=== PATIENT | female | born 1940 | race Caucasian/White ===

== ENCOUNTER 2017-03-14 11:47 | Day surgery (SDC) | payer MEDICARE, OTHER ==
[~2017-03-14] VITALS: Ht 165.1 cm; Wt 52.2 kg
[~2017-03-14 11:47] MED LIST: ASPIRIN EC81 MG PO; BACITRACIN1 PKT TOP; FOLIC ACID1 MG PO; KEFLEX500 MG PO; MOBIC15 MG PO; PRILOSEC20 MG PO; REMERON15 M1 PO; TOPAMAX50 MG PO; ULTRACET TABLE1 EACH PO; ZESTRIL30 MG PO; ZOLPIDEM TARTRA10 MG PO
[2017-03-14] MEDS ORDERED: ALENDRONATE SOD70 MG PO (12:47)
[2017-03-14] MEDS ORDERED: SUMATRIPTAN SU100 MG PO (12:48)
[2017-03-14] MEDS ORDERED: TOPIRAMATE50 MG PO (12:48)
[2017-03-14] MEDS ORDERED: CRAN-MAX500 MG PO (12:49)
[2017-03-14] MEDS ORDERED: MULTI VITAMIN1 EACH PO (12:49)
[2017-03-14] MEDS ORDERED: FLAX SEED OIL1000 MG PO (12:50)
[2017-03-14] MEDS ORDERED: ORENCIA50 MG/0.4 IV (12:51)
[2017-03-14] MEDS ORDERED: HYDROCODON-ACE1 EAC8 PO (12:52)
--- NOTE | 2017-03-14 14:55 | NUR ---
RIGHT FA IV CDI ON ARRIVAL TO PACU.
--- NOTE | 2017-03-14 14:57 | NUR ---
03/14/17 8367 Armond Armijo PT ENCOURAGED TO TRY AND PASS THE AIR FROM HER COLON. THE PT STATES SHE UNDERSTANDS AND WILL TRY AND DO SO.
[2017-03-15] MEDS ORDERED: DILTIAZEM HCL10 GM TOP (08:36)
[2017-03-15] MEDS ORDERED: MAPAP325 MG PO (08:36)
[2017-03-15] MEDS ORDERED: IBUPROFEN600 MG PO (08:36)
--- NOTE | 2017-04-08 07:48 | OR ---
[facility] [address], [place] [address] Signed DATE OF PROCEDURE: 03/14/17 PREOPERATIVE DIAGNOSES Episodic rectal bleeding and prolapsing hemorrhoidal tissue. POSTOPERATIVE DIAGNOSES Profound diverticulosis of sigmoid and left colon. PROCEDURE PERFORMED Colonoscopy beyond the splenic flexure (incomplete). Prolapsing hemorrhoidal complex. SURGEON: Cayla Schumacher MD. ANESTHESIA: Intravenous sedation, Fentanyl 100 mcg, Versed 4 mg. INDICATION This 76-year-old white woman is a patient Dr. Brown and Dr. Felicita Cummings. She was referred with "rectal prolapse" and found to have hemorrhoidal prolapse in the lateral aspect. This was on the right side dominantly. There was no true rectal prolapse noted. She has had episodic rectal bleeding, which may or may not be related to her hemorrhoidal problem. I have recommended colonoscopy. The risks of bleeding, infection, and perforation were reviewed with her in detail. She understands wished to proceed. FINDINGS The prep was good. Profound diverticular changes were noted at the sigmoid and left colon. The scope was passed up to approximately 80 cm, but given angulation deformity, friability of her colon profound diverticulosis, her advanced age, and a thin body habitus, further pursuing a colonoscopy beyond this point was deemed highly hazardous for perforation and no further attempts were made to go beyond that. There were no signs of cancer or polyps or colitis, only diverticulosis. Internal hemorrhoidal complex that was noted was seen as well. DESCRIPTION OF PROCEDURE The patient was brought to the endoscopy suite and placed in lateral decubitus position. Given intravenous sedation to the point of slurred speech and nystagmus with full cardiopulmonary monitoring. Digital rectal examination was normal overall. An Olympus video colonoscope was passed in the rectum and manipulated down the sigmoid into the left colon where dense numerous large and small diverticula were noted. Various angulation deformities were noted. With various manipulation, the scope was carefully manipulated through them to approximately 50 to 60 cm and beyond that to what appeared Electronically Signed By: CAYLA SCHUMACHER MD 04/08/17 0748 PATIENT NAME: FELICITA MAXWELL OPERATIVE REPORT DATE OF : 40 PHYSICIAN: CAYLA SCHUMACHER MD REPORT #: [id number] REPORT IS CONFIDENTIAL AND NOT TO BE RELEASED WITHOUT AUTHORIZATION [facility] [address] [place], [place] [address] Signed to be the splenic flexure, but there were still diverticular changes there. Passage beyond that caused some amount of diaphoresis of the patient and notably her thin body habitus with the findings of the colon, the friability of the colon, numerous diverticula, and sigmoidal fixation made passage beyond this area unreasonable due to hazard of perforation and on that basis, I abandoned the procedure from there. The scope was then carefully withdrawn and examination showed no evidence of polyps or colitis, only diverticular changes as noted. Retroflexed view in the rectum confirmed the hemorrhoidal issue in question. CONCLUDING DIAGNOSIS Incomplete colonoscopy, but profound diverticulosis noted. No evidence of malignancy. PLAN I believe it is safe to proceed with the hemorrhoidal excision tomorrow as planned. She will maintain a liquid diet until that time. MD PABLO Honeycutt/Vesna /[id number] cc: MD Felicita Lambert MD Electronically Signed By: CAYLA SCHUMACHER MD 04/08/17 0748 PATIENT NAME: FELICITA MAXWELL FARRAH OPERATIVE REPORT DATE OF : 40 PHYSICIAN: CAYLA SCHUMACHER MD REPORT #: [id number] REPORT IS CONFIDENTIAL AND NOT TO BE RELEASED WITHOUT AUTHORIZATION
== END 2017-03-14 15:35 | disposition home or self-care (01) ==
LOC: OPS 11:47 → DS 15:00 → OPS 15:35
PROVIDERS: Surgery
PROC: 0DJD8ZZ Inspection of Lower Intestinal Tract, Via Natural or Artificial Opening Endoscopic (ICD-10-PCS; principal; 2017-03-14 15:00)
DX: K57.30 Diverticulosis of large intestine without perforation or abscess without bleeding (principal); K64.8 Other hemorrhoids; M06.9 Rheumatoid arthritis, unspecified; I10 Essential (primary) hypertension; Z88.5 Allergy status to narcotic agent; Z88.8 Allergy status to other drugs, medicaments and biological substances; Z90.710 Acquired absence of both cervix and uterus; Z96.651 Presence of right artificial knee joint; Z98.890 Other specified postprocedural states
CPT/HCPCS: 36415; 80053; 85025; 93005; 93010; 99152; 99153; J0694

== ENCOUNTER 2017-03-15 05:30 | Day surgery (SDC) | payer MEDICARE, OTHER ==
[~2017-03-15] VITALS: Ht 165.1 cm; Wt 52.2 kg
[~2017-03-15 05:30] MED LIST changes: +ALENDRONATE SOD70 MG PO; +CRAN-MAX500 MG PO; +FLAX SEED OIL1000 MG PO; +HYDROCODON-ACE1 EAC8 PO; +MULTI VITAMIN1 EACH PO; +ORENCIA50 MG/0.4 IV; +SUMATRIPTAN SU100 MG PO; +TOPIRAMATE50 MG PO
--- NOTE | 2017-03-15 08:23 | NUR ---
03/15/17 0823 Adam Aguilera ANGLE SHEARER MEDICATING PT WITH PHENYLEPHRINE AT 0822.
[2017-03-15] MEDS ORDERED: MAPAP325 MG PO (08:36)
[2017-03-15] MEDS ORDERED: DILTIAZEM HCL10 GM TOP (08:36)
[2017-03-15] MEDS ORDERED: IBUPROFEN600 MG PO (08:36)
--- NOTE | 2017-03-15 09:24 | NUR ---
ICED WATER GIVEN. SANDWICH ORDERED FROM DIETARY. CALL LIGHT W/IN REACH.
--- NOTE | 2017-03-15 10:03 | NUR ---
LE 0945: BREAKFAST ARRIVES FROM DIETARY. PT SITTING UP IN BED AND EATING. JUICE AND COFFEE GIVEN. 1000: PT EATS BREAKFAST AND TOLERATES THAT WELL. PT DENIES ADD'L NEEDS @ THIS TIME.
--- NOTE | 2017-03-15 10:18 | NUR ---
PT UP TO BR W/2 RN ASSIST. PT AMBULATES WELL AND DENIES ABILITY TO VOID. SMALL BLOOD CLOT NOTED IN HAT. PT AMBULATES BACK TO BED AND SCDS ARE IN PLACE. OXYGEN REMOVED PRIOR TO BATHROOM TRIP.
--- NOTE | 2017-03-15 10:32 | NUR ---
PT BLADDER SCANNED AND TO FOUND TO HAVE 663 ML IN BLADDER.
--- NOTE | 2017-03-15 10:56 | NUR ---
LE 1045: CALL TO MD AFTER UNSUCCESSFUL VOID AND NEW ORDER RECEIVED. IN AND OUT CATHETER DONE USING STERILE TECHNIQUE AND 900ML CLEAR YELLOW URINE OBTAINED. PT TOLERATES CATH WELL. MORE ICED WATER GIVEN.
--- NOTE | 2017-03-15 11:40 | NUR ---
PT CONTINUES TO DENY URGE TO VOID. PT BLADDER SCANNED AND IS FOUND TO HAVE 337 ML IN BLADDER. PT UPDATED ON PLAN OF CARE AND SHE VERBALIZES UNDERSTANDING.
--- NOTE | 2017-03-15 12:15 | NUR ---
PT UP TO BR W/RN STANDBY. PT VOIDS 400 ML CLEAR YELLOW URINE AND CHANGES SUDARSHAN PAD W/SMALL AMOUNT OF SEROUS DRAINAGE. PT AMBULATES BACK TO BED AND REQ DC HOME. PT CALLS HER RIDE.
--- NOTE | 2017-04-08 07:48 | OR ---
[facility] [address] [place], [place] [address] Signed DATE OF PROCEDURE: 03/15/17 PREOPERATIVE DIAGNOSIS Right prolapsing hemorrhoidal complex including rectal mucosa. 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 PROCEDURE PERFORMED Excision of right lateral prolapsing anorectal mucosa. SURGEON: Cayla Schumacher MD. ANESTHESIA Saddle block with sedation (Cayla Jones CRNA) and local 10 mL of 0.25% Marcaine with Epinephrine. INDICATION This 76-year-old white woman is a patient of Dr. Cummings and Dr. Brown and has had episodic perianal swelling as well as prolapse of hemorrhoidal tissue. She underwent a limited colonoscopy yesterday showing profound diverticular changes. She has had rectal bleeding associated with her prolapsing hemorrhoidal tissue. She does not have rectal prolapse proper but prolapsing of the right anterolateral hemorrhoidal complex and some rectal mucosa. This is more than simple prolapsing hemorrhoids however. She is admitted at this time to undergo excision of this tissue understanding the risks of bleeding, infection, recurrence and so on. FINDINGS Indeed in the right anterolateral aspect redundant prolapsing rectal mucosa and hemorrhoidal tissue was noted. Wide excision was undertaken preserving the sphincter muscle complex. Closure of the mucosa was undertaken with opening externally to allow for drainage as necessary. DESCRIPTION OF PROCEDURE The patient was brought to the operating room, given a saddle block anesthetic and placed in a prone nilo-knife position. She had already undergone a bowel prep from her colonoscopy previously and intravenous antibiotic Cefoxitin had been given. In the prone nilo-knife position the buttocks were taped apart. Perianal Betadine preparation was undertaken. A photograph was taken at the outset and an anal retractor was placed. The prolapsing right anterolateral rectal and hemorrhoidal tissue was identified and grasped with a Mcnally clamp. 8 mL of 0.25% Marcaine was injected in a subepidermal and submucosal configuration. Using electrocautery, wide excision of the tissue was Electronically Signed By: CAYLA SCHUMACHER MD 04/08/17 0748 PATIENT NAME: HANSKASSI Moreno FARRAH OPERATIVE REPORT DATE OF : 40 PHYSICIAN: CAYLA SCHUMACHER MD REPORT #: [id number] REPORT IS CONFIDENTIAL AND NOT TO BE RELEASED WITHOUT AUTHORIZATION [facility] [address] [place] [id number] Signed undertaken. Dissection was carried close to the prolapsing tissue so as to avoid interruption of the anorectal musculature. At the root of the prolapsing tissue, hemostat was placed and a 2-0 chromic on a UR needle was used to secure the vascular pedicle. The specimen was passed for pathology. The rectal mucosa and anoderm was reapproximated with running 2-0 chromic leaving the external portion open to allow for drainage as necessary. Good hemostasis was noted. Additional Marcaine anesthetic was infiltrated and Bacitracin applied and a peripad applied. She was returned to the supine position and ultimately taken to recovery room in good condition. BLOOD LOSS: Minimal. MD PABLO Honeycutt/Vesna /[id number] cc: MD Obinna Davis MD Electronically Signed By: CAYLA SCHUMACHER MD 04/08/17 0748 PATIENT NAME: HANS,KASSI [facility] OPERATIVE REPORT DATE OF : 40 PHYSICIAN: CAYLA SCHUMACHER MD REPORT #: [id number] REPORT IS CONFIDENTIAL AND NOT TO BE RELEASED WITHOUT AUTHORIZATION
== END 2017-03-15 12:28 | disposition home or self-care (01) ==
LOC: DS 05:30
PROVIDERS: Surgery
PROC: 06BY0ZC Excision of Hemorrhoidal Plexus, Open Approach (ICD-10-PCS; principal; 2017-03-15 06:45)
DX: K64.8 Other hemorrhoids (principal); M06.9 Rheumatoid arthritis, unspecified; I10 Essential (primary) hypertension; Z88.5 Allergy status to narcotic agent; Z88.8 Allergy status to other drugs, medicaments and biological substances; Z90.710 Acquired absence of both cervix and uterus; Z96.651 Presence of right artificial knee joint; Z98.890 Other specified postprocedural states
CPT/HCPCS: 00902; 88304; J0694; J1100; J1885; J2250; J2405; J2704; J2765; J3010; J7120

== ENCOUNTER 2017-05-17 15:49 | Emergency (ER) | payer OTHER, MEDICARE ==
[~2017-05-17] VITALS: Ht 165.1 cm; Wt 52.2 kg
[~2017-05-17 15:49] MED LIST changes: +DILTIAZEM HCL10 GM TOP; +IBUPROFEN600 MG PO; +MAPAP325 MG PO
[2017-05-17] MEDS ORDERED: NORCO 10-325 T1 EACH PO (16:41)
== END 2017-05-17 18:25 | disposition home or self-care (01) ==
LOC: ED 15:49
DX: S42.202A Unspecified fracture of upper end of left humerus, initial encounter for closed fracture (principal); S00.81XA Abrasion of other part of head, initial encounter; I10 Essential (primary) hypertension; Z88.1 Allergy status to other antibiotic agents; Z88.5 Allergy status to narcotic agent; Z88.8 Allergy status to other drugs, medicaments and biological substances; Z79.82 Long term (current) use of aspirin; Z79.899 Other long term (current) drug therapy; Z96.651 Presence of right artificial knee joint; W18.30XA Fall on same level, unspecified, initial encounter
CPT/HCPCS: 73030; 96374; 96375; 99283; J1170; J1885; J2405

== ENCOUNTER 2019-07-24 13:22 | Emergency (ER) | payer MEDICARE, OTHER ==
[~2019-07-24] VITALS: Ht 165.1 cm; Wt 52.2 kg
[~2019-07-24 13:22] MED LIST changes: +NORCO 10-325 T1 EACH PO
[2019-07-24] MEDS ORDERED: PROMETHAZINE-C473 ML (13:35)
[2019-07-24] MEDS ORDERED: PRILOSEC OTC20 MG PO (15:09)
--- NOTE | 2019-07-24 20:11 | EKG ---
[facility] [address] [facility] [place], [place] [address] Signed Sinus bradycardia Possible Left atrial enlargement Right bundle branch block Abnormal ECG When compared with ECG of 14-MAR-2017 12:14, No significant change was found Confirmed by ZEKE CROSS DO ([id number]) on 07/24/2019 8:11:00 PM Electronically Signed By: ZEKE CROSS DO 07/24/192010 PATIENT NAME: KASIS MAXWELL FARRAH Electrocardiogram DATE OF : 40 PHYSICIAN: ZEKE CROSS DO REPORT #: [id number] REPORT IS CONFIDENTIAL AND NOT TO BE RELEASED WITHOUT AUTHORIZATION
== END 2019-07-24 15:24 | disposition home or self-care (01) ==
LOC: ED 13:22
DX: K21.9 Gastro-esophageal reflux disease without esophagitis (principal); I10 Essential (primary) hypertension; Z87.891 Personal history of nicotine dependence; Z88.5 Allergy status to narcotic agent; Z88.1 Allergy status to other antibiotic agents; Z79.899 Other long term (current) drug therapy; Z79.82 Long term (current) use of aspirin
CPT/HCPCS: 80053; 83735; 84484; 85025; 93005; 93010; 99285-25

== ENCOUNTER 2020-02-05 17:02 | Emergency (ER) | payer MEDICARE, OTHER ==
[~2020-02-05] VITALS: Ht 165.1 cm; Wt 52.2 kg
--- OUTSIDE RECORDS SUMMARY | ~2020-02-05 | XMS | Encounter Summary ---
Demographics + + + | Address | [address] | | | [place] [address] | + + + | Home Phone | | + + + | Preferred Language | Unknown | + + + | Marital Status | | + + + | Rastafarian Affiliation | 1028 | + + + | Race | White | + + + | Ethnic Group | Not or | + + + Author + + + | Author | [facility] | | | and [place] | + + + | Organization | [facility] | | | and [place] | + + + | Address | Unknown | + + + | Phone | Unavailable | + + + Support + + + + + | Name | Relationship | Address | Phone | + + + + + | Matt Hampton | ECON | [address] | | | | | [place] | | | | | [address] | | + + + + + Care Team Providers + +------+ + | Care Palliative Care Coordinator Name | Role | Phone | + +------+ + PCP | Unavailable | + +------+ + Encounter Details +--------+ + + + + | Date | Type | Department | Care Team | Description | +--------+ + + + + | 05/11/ | [facility] | [facility] | Conversion | | | 2010 | Encounter | [facility] | Transaction, | | | | | [facility] | Provider Unknown | | | | | [address] | | | | | | [place] | (Fax) | | | | | [address] | | | | | | [phone] | | | +--------+ + + + + Social History + +-------+ +--------+------+ | Tobacco Use | Types | Packs/Day | Years | Date | | | | | Used | | + +-------+ +--------+------+ | Never Assessed | | | | | + +-------+ +--------+------+ + + + | Sex Assigned at | Date Recorded | | | | + + + | Not on file | | + + + documented as of this encounter Medications at Time of Discharge + + + +---------+ + + | Medication | Sig | Dispensed | Refills | Start | End Date | | | | | | Date | | + + + +---------+ + + | gabapentin | Take 400 mg by mouth | | 0 | 07/30/19 | | | (NEURONTIN) 400 mg | 3 times daily. | | | 11 | | | capsule | | | | | | + + + +---------+ + + documented as of this encounter Plan of Treatment +--------+---------+ + + + | Date | Type | Specialty | Care Team | Description | +--------+---------+ + + + | 02/17/ | Office | Rheumatology | Lonnie Mandel | | | 2020 | Visit | | MD William [address] | | | | | | [facility] | | | | | | [place] [address] | | | | | | [phone] | | | | | | | | +--------+---------+ + + + documented as of this encounter Visit Diagnoses Not on filedocumented in this encounter"
--- OUTSIDE RECORDS SUMMARY | ~2020-02-05 | XMS | Encounter Summary ---
Demographics + + + | Address | [address] | | | [place] [address] | + + + | Home Phone | | + + + | Preferred Language | Unknown | + + + | Marital Status | | + + + | Yazidi Affiliation | 1028 | + + + | Race | White | + + + | Ethnic Group | Not or | + + + Author + + + | Author | [facility] | | | and [place] | + + + | Organization | [facility] | | | and [place] | + + + | Address | Unknown | + + + | Phone | Unavailable | + + + Support + + + + + | Name | Relationship | Address | Phone | + + + + + | Matt Hampton | ECON | [address] | | | | | [place] | | | | | [address] | | + + + + + Care Team Providers + +------+ + | Care Coke Oven Patcher Name | Role | Phone | + +------+ + PCP | Unavailable | + +------+ + Encounter Details +--------+ + + + + | Date | Type | Department | Care Team | Description | +--------+ + + + + | 03/31/ | Hospital | [facility] | Unknown, | | | 1991 | Encounter | MED CTR XRAY [address] | MD Praveen . | | | | | [address] | | | | | | [place] [address] | (Fax) | | | | | [phone] | | | +--------+ + + + [...] 2020 | Visit | | MD William [address] | | | | | | [address] | | | | | | [place] [address] | | | | | | [phone] | | | | | | | | +--------+---------+ + + + documented as of this encounter Visit Diagnoses Not on filedocumented in this encounter"
--- OUTSIDE RECORDS SUMMARY | ~2020-02-05 | XMS | Encounter Summary ---
Demographics + + + | Address | [address] | | | [place] [address] | + + + | Home Phone | | + + + | Preferred Language | Unknown | + + + | Marital Status | | + + + | Buddhism Affiliation | 1028 | + + + | Race | White | + + + | Ethnic Group | Not or | + + + Author + + + | Author | [facility] | | | and [place] | + + + | Organization | [facility] | | | and [...] [place] | | | | | [address] | | + + + + + Care Team Providers + +------+ + | Care Sales Forecast Analyst Name | Role | Phone | + +------+ + PCP | Unavailable | + +------+ + Encounter Details +--------+ + + + + | Date | Type | Department | Care Team | Description | +--------+ + + + + | 05/31/ | Hospital | [facility] | | | | 2002 | Encounter | MED CTR XRAY [address] | | | | | | [address] | | | | | | [place] [address] | | | | | | [phone] | | | +--------+ + + + [...] Rheumatology | Lonnie Mandel | | | 2019 | Visit | | MD William [address] | | | | | | [address] | | | | | | [place] [address] | | | | | | [phone] | | | | | | | | +--------+---------+ + + + documented as of this encounter Visit Diagnoses Not on filedocumented in this encounter"
--- OUTSIDE RECORDS SUMMARY | ~2020-02-05 | XMS | Encounter Summary ---
Demographics + + + | Address | [address] | | | [place] [address] | + + + | Home Phone | | + + + | Preferred Language | Unknown | + + + | Marital Status | | + + + | Temple Affiliation | 1028 | + + + | Race | White | + + + | Ethnic Group | Not or | + + + Author + + + | Author | [facility] | | | and [place] | + + + | Organization | [facility] | | | and [...] [place] | | | | | [address] | | + + + + + Care Team Providers + +------+ + | Care Social Media Marketing Manager Name | Role | Phone | + +------+ + PCP | Unavailable | + +------+ + Encounter Details +--------+ + + + + | Date | Type | Department | Care Team | Description | +--------+ + + + + | 01/18/ | Hospital | [facility] | | | | 1999 | Encounter | MED CTR XRAY [address] | | | | | | [address] | | | | | | [place] [address] | | | | | | [phone] | | | +--------+ + + + [...] | | | | | [place] [address] | | | | | | [phone] | | | | | | | | +--------+---------+ + + + documented as of this encounter Visit Diagnoses Not on filedocumented in this encounter"
--- OUTSIDE RECORDS SUMMARY | ~2020-02-05 | XMS | Encounter Summary ---
Demographics + + + | Address | [address] | | | [place] [address] | + + + | Home Phone | | + + + | Preferred Language | Unknown | + + + | Marital Status | | + + + | Bahai Affiliation | 1028 | + + + | Race | White | + + + | Ethnic Group | Not or | + + + Author + + + | Author | [facility] | | | and [place] | + + + | Organization | [facility] | | | and [...] [place] | | | | | [address] | | + + + + + Care Team Providers + +------+ + | Care Janitorial Maintenance Worker Name | Role | Phone | + +------+ + PCP | Unavailable | + +------+ + Encounter Details +--------+ + + + + | Date | Type | Department | Care Team | Description | +--------+ + + + + | 01/27/ | Hospital | [facility] | | | | 1998 | Encounter | MED CTR MP INTRA OP | | | | | | [address] | | | | | | [place] | | | | | | [address] | | | | | | [phone] | | | +--------+ + + + [...] | | | | | [place] [address] | | | | | | [phone] | | | | | | | | +--------+---------+ + + + documented as of this encounter Visit Diagnoses Not on filedocumented in this encounter"
--- OUTSIDE RECORDS SUMMARY | ~2020-02-05 | XMS | Encounter Summary ---
Demographics + + + | Address | [address] | | | [place] [address] | + + + | Home Phone | | + + + | Preferred Language | Unknown | + + + | Marital Status | | + + + | Advent Affiliation | 1028 | + + + | Race | White | + + + | Ethnic Group | Not or | + + + Author + + + | Author | [facility] | | | and [place] | + + + | Organization | [facility] | | | [...] [place] | | | | | [address] | | + + + + + Care Team Providers + +------+ + | Care Senior Microsoft Consultant Name | Role | Phone | + +------+ + PCP | Unavailable | + +------+ + Encounter Details +--------+ + + + + | Date | Type | Department | Care Team | Description | +--------+ + + + + | 01/31/ | Hospital | [facility] | Ryland Odom, | | | 2002 | Encounter | MED CTR XRAY [address] | PA-C [address] | | | | | [place] | [address] [place] | | | | | [place] [address] | [place] [address] | | | | | [phone] | [phone] | | | | | | | | +--------+ + + + [...] [address] | | | | | | [facility] | | | | | | [place] [address] | | | | | | [phone] | | | | | | | | +--------+---------+ + + + documented as of this encounter Visit Diagnoses Not on filedocumented in this encounter"
--- OUTSIDE RECORDS SUMMARY | ~2020-02-05 | XMS | Encounter Summary ---
Demographics + + + | Address | [address] | | | [place] [address] | + + + | Home Phone | | + + + | Preferred Language | Unknown | + + + | Marital Status | | + + + | Jewish Affiliation | 1028 | + + + | Race | White | + + + | Ethnic Group | Not or | + + + Author + + + | Author | [facility] | | | and [place] | + + + | Organization | [facility] | | | [...] [place] | | | | | [address] | | + + + + + Care Team Providers + +------+ + | Care Entry Level Software Engineer Name | Role | Phone | + +------+ + PCP | Unavailable | + +------+ + Encounter Details +--------+ + + + + | Date | Type | Department | Care Team | Description | +--------+ + + + + | 07/24/ | Hospital | [facility] | | | | 2010 | Encounter | MED CTR EMERGENCY | | | | | | [address] | | | | | | [place] | | | | | | [address] | | | | | | [phone] | | | +--------+ + + + [...] | | | | | [place] [address] | | | | | | [phone] | | | | | | | | +--------+---------+ + + + documented as of this encounter Visit Diagnoses Not on filedocumented in this encounter"
--- OUTSIDE RECORDS SUMMARY | ~2020-02-05 | XMS | Encounter Summary ---
Demographics + + + | Address | [address] | | | [place] [address] | + + + | Home Phone | | + + + | Preferred Language | Unknown | + + + | Marital Status | | + + + | Adventist Affiliation | 1028 | + + + | Race | White | + + + | Ethnic Group | Not or | + + + Author + + + | Author | [facility] | | | and [place] | + + + | Organization | [facility] | | | and [...] [place] | | | | | [address] | | + + + + + Care Team Providers + +------+ + | Care Nut Steamer Name | Role | Phone | + +------+ + PCP | Unavailable | + +------+ + Encounter Details +--------+ + + + + | Date | Type | Department | Care Team | Description | +--------+ + + + + | 11/18/ | Hospital | [facility] | Roscoe Rhodes MD | | | 2010 | Encounter | [facility] | [address] | | | | | [address] | [place] [address] | | | | | [place] | [phone] | | | | | [address] | | | | | | [phone] | | | +--------+ + + + [...] + + documented as of this encounter H&P Notes Roscoe Rhodes MD - 11/18/2010 5:37 AM PDTDATE: PREOPERATIVE HISTORY AND PHYSICAL DATE OF PROCEDURE: 11/18/2010 CHIEF COMPLAINT: Severe back pain. HISTORY: The patient is a 70-year-old female, previously seen by my colleague, Dr. Daugherty . She had an issue back in 07/2010 where she was moving a ladder and she strained her back. She noted a marked increase in her back pain and some progression of deformity in her low back since the event. She has been having conservative treatment that Dr. Daugherty had recom mended. Unfortunately, she did not impro ve with these measures significantly. She was refe rred to me for possible kyphoplasty. She continues to have some pain that travels down into the right hip region and into the right thigh. She also has a history of knee pain on this side. At least 50% of her symptoms are in her back and 50% of her symp toms are in her leg s. She describes the pain at today's visit as quite severe. PAST MEDICAL HISTORY: Positive for 1. Rheumatoid arthritis. 2. Hypertension. 3. Osteoporosis. 4. Sinusitis. 5. Peptic ulcer disease. 6. Migraines. 7. Bronchitis. PAST OPERATIONS 1. Laminectomy. 2. Right knee replacement. CURRENT MEDICATIONS 1. Folate. 2. Neurontin. 3. Levaquin. 4. Lisinopril. 5. Skelaxin. 6. Multivitamin. 7. Alprazolam. 8. Black Eagle-3. 9. Senokot. 10. Medrol. 11. Alendronate. 12. Benadryl. 13. Amitriptyline. 14. Vitamin B12. 15. Vitamin C. 16. Calcium. 17. Vitamin D. 18. Prilosec. 19. Zofran. 20. Hydrocodone. 21. Cranberry juice. 22. Triamcinolone cream. 23. Hydrochlorothiazide. 24. Orencia. DRUG ALLERGIES: SHE IS ALLERGIC TO PAIN MEDICATIONS AND STATES SHE HAS TROUBLE WITH MOST N ARCOTICS, WHICH CAUSE HER TO BE NAUSEATED AND SICK. SOCIAL HISTORY: She does not drink alcohol or use tobacco. FAMILY HISTORY: Positive for coronary artery disease, cerebrovascular disease, migraines, high blood pressure, and arthritis. REVIEW OF SYSTEMS: A complete review of systems was performed on 09/07/2010. There have be en no sylvester ges. Complete review of systems reviewed in full. PHYSICAL EXAMINATION GENERAL: She is in no acute distress. She has unlabored respirations. HEENT: Her head, face, eyes, ears, nose and throat exam shows she is normocephalic and atr aumatic. T he eyes show no drainage or erythema. The ears show no drainage or tenderness. T he naso-oropharynx is clear without erythema or exudate. NECK: Supple. Range of motion is somewhat limited, however, no palpable masses are seen. CHEST: Clear to auscultation without crackles. HEART: Regular rate and rhythm without gallops. ABDOMEN: Soft, nontender and nondistended. BACK: Spinal examination shows scoliosis with the apex on the right side in the lumbar reg ion. She h as tenderness over the L3 vertebral body. EXTREMITY: Examination shows arthritic degenerative changes of the bilateral upper and low er extremi ties, with postsurgical changes of the right knee and muscle wasting of her intr insic musculature dis tally. NEUROLOGIC: Shows that she is awake and alert. She follows complex commands. Speech is flu ent. She c omprehends speech well and repeats well. She has no apparent deficits with her l elaine or short-term mem ory. Her cranial nerve exam shows cranial nerves intact II through XI I. Her motor exam shows 5/5 stre ngth throughout with the exception of the quadriceps and a nkle extensor function on the right lower e xtremity. This is stable from Dr. Daugherty's aristides luation. Sensory examination shows intact sensation to light touch and pain throughout and deep tendon reflexes are 1/4 throughout. MRI of her L-spine is reviewed. It shows increased signal in the L3 vertebral body from 2010. A ne w study was performed, and there is some question as to the acuteness of the L2 fracture. There is no acute signal present here but still some subacute signal change in th e L3 vertebral body. She does h ave evidence of spinal stenosis, which is mild at the L2-3 and L3-4 levels. Marked facet arthropathy is present throughout the lumbar spine. An EMG st udy performed by Dr. Mcbride showed no sensory or mot or radiculopathies, and no peripheral neuropathy. PLAN: The patient has failed conservative treatment for her lumbar compression fracture wi th 16 week s of conservative treatment involving narcotics, anti-inflammatory therapy, brac ing and injections. A s she has failed these extensive measures, I think she is a candidate for vertebral augmentation. I a m in favor of treatment in the form of a kyphoplasty; monteiro yovany, the exact technique is likely not impo rtant. I discussed with her that overall we wou ld like to improve her back symptoms from the L3 level . Hopefully, the treatment will be s uccessful for her. I think that performing a more invasive proced ure involving decompressi on or instrumented stabilization in the setting of her severe osteoporosis w ould be less f avorable. I am hoping again that just a small procedure might create a great sense of r fadi ef of her back symptoms. She was counseled on the risks, benefits, alternatives and potentia l bene fits of surgery, and she would like to proceed with surgery. I have arranged her for surgery and she is scheduled for 11/18. DICTATED BY: Roscoe Rhodes MD Neurological Surgery JOB #: [id number] EXT JOB #:[id number] EDITED: 11/18/2010 07:49 <Electronically Signed by Roscoe Rhodes MD> 11/20/10 0711 documented in this encounter Miscellaneous Notes Op Note - Roscoe Rhodes MD - 11/18/2010 5:37 AM PDTDATE: 11/18/2010 PREOPERATIVE DIAGNOSIS: L3 compression fracture failing medical therapy greater than 4 mon ths. POSTOPERATIVE DIAGNOSIS: L3 COMPRESSION FRACTURE FAILING MEDICAL THERAPY GREATER THAN 4 MO NTHS. PROCEDURE 1. L3 vertebral augmentation. 2. L3 vertebral body biopsy for progressive compression fracture. ATTENDING: Roscoe Rhodes MD ASSISTANTS: None. ANESTHESIA: General performed by Johnson Villalobos MD ESTIMATED BLOOD LOSS: 1 mL COMPLICATIONS: There were no intraoperative complications. INTRAOPERATIVE FINDINGS: The patient had an L3 compression fracture that appeared to have worsened f rom its previous imaging. The bone of her pedicles and vertebral body was marked ly osteoporotic. SPECIMENS: L3 vertebral body biopsy bone material was sent to Pathology for evaluation. Th is was aga in due to the progressive nature of this compression fracture. OPERATIVE DETAILS: After obtaining consent, the patient was taken to the operating room an d placed u nder general anesthesia. She was then positioned in the prone position on the Ne lson frame, and her f aurora and extremities were padded appropriately. A time-out was perform ed, and all members of the surgi umberto team agreed with the time-out. The patient's back was then prepped and draped over the L3 region, and then fluoroscopy was brought in using bipla alan fluoroscopy. Images were obtained at the L3 level , which showed the L3 compression fra cture had appeared to worsen since its last x-ray imaging. The p edicles could be seen on A P visualization as could the pedicles and body on lateral fluoroscopy. Fluo roscopy was use d to localize starting points. Two incisions were then made with a 15 blade knife cent ered over the L3 pedicles. The pedicle access devices were then used to access the pedicles bila teral ly, and their insertion was guided with AP and lateral fluoroscopy. No medial breache s of the canal w ere noted, and the pedicle access seemed quite appropriate. The pedicle ac cess devices were then joselyn ulated with a drill, and the drill was used to obtain vertebral body for biopsy and also to make cavi ties for the planned vertebral augmentation. The dri lls were then removed, and then balloons were ins erted down the pedicle access devices. Th e balloons were inflated to 150 of pressure, and this allowe d expansion of vertebral body. Balloons were then fully deflated and removed. The cement was then ins erted into the dist al vertebral body moving more posteriorly with the cement, and AP and lateral fluo roscopic images were obtained confirming adequate placement of the cement. At the most narrow portio n of her fracture, there was some cement leakage into the disk space; however, it was fairl y well cont ained. The cement was then used to fill the posterior aspect of the vertebral b erik, and good intercal ation of the cement was noted. At this stage, the cement inserters w ere removed after approximately 4 mL of total cement was inserted into the L3 body. The ped icle access devices were filled with empty cement tamp, and this allowed for the bone to se t without leaking of the pedicles. Once the bone ceme nt had fully set, the pedicle access devices and tamps were removed, and then the incisions were clos ed with a layer of 4-0 Mon ocryl, followed by SurgiSeal glue. Band-aids and Steri-Strips were used for dressing. All c ounts reported as correct. The patient tolerated the procedure and was transferred to the r ecovery room in stable condition. DICTATED BY: Roscoe Rhodes MD Neurological Surgery JOB #: [id number] EXT JOB #:[id number] <Electronicall y Signed by Roscoe Rhodes MD> 11/20/10 0711 documented in this encounter Plan of Treatment +--------+---------+ + + + | Date | Type | Specialty | Care Team | Description | +--------+---------+ + + + | 02/17/ | Office | Rheumatology | Lonnie Mandel | | | 2020 | Visit | | MD William [address] | | | | | | [facility] | | | | | | [place] [address] | | | | | | [phone] | | | | | | | | +--------+---------+ + + + documented as of this encounter Visit Diagnoses Not on filedocumented in this encounter"
--- OUTSIDE RECORDS SUMMARY | ~2020-02-05 | XMS | Encounter Summary ---
Demographics + + + | Address | [address] | | | [place] [address] | + + + | Home Phone | | + + + | Preferred Language | Unknown | + + + | Marital Status | | + + + | Restoration Affiliation | 1028 | + + + | Race | White | + + + | Ethnic Group | Not or | + + + Author + + + | Author | [facility] | | | and [place] | + + + | Organization | [facility] | | [...] [place] | | | | | [address] | | + + + + + Care Team Providers + +------+ + | Care Fabrication Operator Name | Role | Phone | + +------+ + PCP | Unavailable | + +------+ + Encounter Details +--------+ + + + + | Date | Type | Department | Care Team | Description | +--------+ + + + + | 04/10/ | Hospital | [facility] | | | | 2002 | Encounter | MED CTR XRAY [address] | | | | | | [address] | | | | | | [place] [address] | | | | | | [phone] | | | +--------+ + + + [...] | | | | | [place] [address] | | | | | | [phone] | | | | | | | | +--------+---------+ + + + documented as of this encounter Visit Diagnoses Not on filedocumented in this encounter"
--- OUTSIDE RECORDS SUMMARY | ~2020-02-05 | XMS | Encounter Summary ---
Demographics + + + | Address | [address] | | | [place] [address] | + + + | Home Phone | | + + + | Preferred Language | Unknown | + + + | Marital Status | | + + + | Sabianism Affiliation | 1028 | + + + | Race | White | + + + | Ethnic Group | Not or | + + + Author + + + | Author | [facility] | | | and [place] | + + + | Organization | [facility] | | | and [...] [place] | | | | | [address] | | + + + + + Care Team Providers + +------+ + | Care Hairmasters Manager Name | Role | Phone | + +------+ + PCP | Unavailable | + +------+ + Encounter Details +--------+ + + + + | Date | Type | Department | Care Team | Description | +--------+ + + + + | 12/16/ | Hospital | [facility] | Roscoe Rhodes MD | | | 2010 | Encounter | MED CTR XRAY [address] | [address] | | | | | [address] | [place] [address] | | | | | [place] [address] | [phone] | | | | | [phone] | | | +--------+ + + + [...] 2019 | Visit | | MD William [address] | | | | | | [facility] | | | | | | [place] [address] | | | | | | [phone] | | | | | | | | +--------+---------+ + + + documented as of this encounter Procedures + +--------+ + + + | Procedure Name | Priori | Date/Time | Associated Diagnosis | Comments | | | ty | | | | + +--------+ + + + | XR LUMBAR SPINE 2 OR | | 12/16/2010 | | Results for this | | 3 VW | | 12:55 PM | | procedure are in the | | | | PDT | | results section. | + +--------+ + + + documented in this encounter Results XR Lumbar Spine 2 or 3 Vw (12/16/2010 12:55 PM PDT) + + | Specimen | + + | | + + + + + | Narrative | Performed At | + + + | [facility] | [facility] | | [address] [facility] | [facility] | | THREE VIEWS LUMBAR SPINE | DIAG IMG | | 12/16/2010 CLINICAL HISTORY: FOLLOWUP L3 VERTEBRAL | | | AUGMENTATION. COMPARISON: Intraoperative spot films | | | 11/18/2010, lumbar MRI 11/10/2010, lumbar radiographs 10/23/2010. | | | FINDINGS: Five non-rib bearing, lumbar type vertebrae are | | | visible. There is generalized leftward curvature of the lower | | | thoracic and lumbar spine. Irregular, moderate to severe | | | compression deformity of the L3 vertebral body is again | | | demonstrated, with vertebroplasty cement now evident at the L3 level. | | | Rounded calcific density projecting along the dorsal aspect of the | | | L3-4 disc space presumably reflects disc/osteophyte complex, and | | | encroaches on the central canal. Approximate 30% wedging deformity | | | of the inferior L2 vertebral endplate and associated endplate | | | sclerosis are unchanged. There is persistent straightening of the | | | lumbar lordosis. Lumbar vertebral height and alignment are | | | maintained otherwise, without evidence of new fracture or | | | spondylolisthesis. Moderate disc space narrowing persists at L4-5 | | | and L5-S1, and there is multilevel facet hypertrophy. Multilevel | | | thoracolumbar vertebral spondylosis is present as well. Diffuse | | | osteopenia is suggested. Sacroiliac joints, imaged sacrum, bony | | | pelvis and lower ribs are unremarkable. IMPRESSION: 1. | | | SIMILAR, IRREGULAR COMPRESSION DEFORMITY OF THE L3 VERTEBRAL BODY | | | FOLLOWING VERTEBROPLASTY, WITH PROBABLE DORSAL DISC/OSTEOPHYTE | | | COMPLEX ENCROACHING ON THE CENTRAL CANAL. 2. STABLE MILD | | | WEDGING DEFORMITY OF THE INFERIOR L2 VERTEBRAL ENDPLATE. 3. | | | OSTEOPENIA WITH MULTILEVEL DEGENERATIVE DISC DISEASE AND | | | SPONDYLOSIS. Dictated Date/Time: 12/16/2010 14:43 | | | Transcribed Date/Time: 12/16/2010 15:44 Supervisor Offset Plate Preparation: | | | <Electronically Signed by Jeremiah Andujar MD> 12/16/10 5723 | | + + + + + | Procedure Note | + + | Bernard, Rad Conversion - 07/13/2013 3:22 PM [facility] | | Diagnostic Imaging Department | | [address] [address] | | | | | | | | THREE VIEWS LUMBAR SPINE 12/16/2010 | | | | CLINICAL HISTORY: FOLLOWUP L3 VERTEBRAL AUGMENTATION. | | | | COMPARISON: Intraoperative spot films 11/18/2010, lumbar MRI 11/10/2010, | | lumbar radiographs 10/23/2010. | | | | FINDINGS: Five non-rib bearing, lumbar type vertebrae are visible. There is | | generalized leftward curvature of the lower thoracic and lumbar spine. | | Irregular, moderate to severe compression deformity of the L3 vertebral body is | | again demonstrated, with vertebroplasty cement now evident at the L3 level. | | Rounded calcific density projecting along the dorsal aspect of the L3-4 disc | | space presumably reflects disc/osteophyte complex, and encroaches on the | | central canal. Approximate 30% wedging deformity of the inferior L2 vertebral | | endplate and associated endplate sclerosis are unchanged. There is persistent | | straightening of the lumbar lordosis. Lumbar vertebral height and alignment | | are maintained otherwise, without evidence of new fracture or | | spondylolisthesis. Moderate disc space narrowing persists at L4-5 and L5-S1, | | and there is multilevel facet hypertrophy. Multilevel thoracolumbar vertebral | | spondylosis is present as well. Diffuse osteopenia is suggested. Sacroiliac | | joints, imaged sacrum, bony pelvis and lower ribs are unremarkable. | | | | IMPRESSION: | | 1. SIMILAR, IRREGULAR COMPRESSION DEFORMITY OF THE L3 VERTEBRAL BODY FOLLOWING | | VERTEBROPLASTY, WITH PROBABLE DORSAL DISC/OSTEOPHYTE COMPLEX ENCROACHING ON THE | | CENTRAL CANAL. | | | | 2. STABLE MILD WEDGING DEFORMITY OF THE INFERIOR L2 VERTEBRAL ENDPLATE. | | | | 3. 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 | | | | Dictated Date/Time: 12/16/2010 14:43 | | Transcribed Date/Time: 12/16/2010 15:44 | | Supervisor Offset Plate Preparation: | | <Electronically Signed by Jeremiah Andujar MD> 12/16/10 2233 | + + + +---------+ + + | Performing | Address | City/State/Zipcode | Phone Number | | Organization | | | | + +---------+ + + | [place] | | | | | [facility] | | | | + +---------+ + + documented in this encounter Visit Diagnoses Not on filedocumented in this encounter"
--- OUTSIDE RECORDS SUMMARY | ~2020-02-05 | XMS | Encounter Summary ---
Demographics + + + | Address | [address] | | | [place] [address] | + + + | Home Phone | | + + + | Preferred Language | Unknown | + + + | Marital Status | | + + + | Caodaism Affiliation | 1028 | + + + | Race | White | + + + | Ethnic Group | Not or | + + + Author + + + | Author | [facility] | | | and [place] | + + + | Organization | [facility] | | | and [place] | + + + | Address | Unknown | + + + | Phone | Unavailable | + + + Support + + + + + | Name | Relationship | Address | Phone | + + + + + | Matt Maxwell | ECON | [address] | | | | | [place] | | | | | [address] | | + + + + + Care Team Providers + +------+ + | Care Forest Worker Name | Role | Phone | + +------+ + PCP | Unavailable | + +------+ + Encounter Details +--------+ + + + + | Date | Type | Department | Care Team | Description | +--------+ + + + + | 01/13/ | Hospital | [facility] | Garett Marcus, | | | 2012 | Encounter | [facility] | [place] [address] | | | | | [place] [address] | [place] | | | | | [place] | [address] | | | | | [address] | | | | | | [phone] | | | +--------+ + + + + Social History + +-------+ +--------+------+ | Tobacco Use | Types | Packs/Day | Years | Date | | | | | Used | | + +-------+ +--------+------+ | Former Smoker | | | | | + +-------+ [...] + + + +---------+ + + | Abatacept (ORENCIA | SOLR - 3 vials every | | 0 | 02/18/20 | | | IV) | 4 weeks | | | 12 | | + + + +---------+ + + | alendronate | Take 70 mg by mouth | | 0 | 02/18/20 | | | (FOSAMAX) 70 mg | Once a week. | | | 12 | | | tablet | | | | | | + + + +---------+ + + | amitriptyline | Take 10 mg by mouth | | 0 | 02/18/20 | | | (ELAVIL) 10 mg | Daily. | | | 12 | | | tablet | | | | | | + + + +---------+ + + | Ascorbic Acid | Take 1,000 mg by | | 0 | 02/18/20 | | | (VITAMIN C) 1000 MG | mouth Daily. | | | 12 | | | tablet | | | | | | + + + +---------+ + + | aspirin (ADULT | Take 81 mg by mouth | | 0 | 02/18/20 | | | ASPIRIN EC LOW | Daily. | | | 12 | | | STRENGTH) 81 MG EC | | | | | | | tablet | | | | | | + + + +---------+ + + | | two times daily | | 0 | 02/18/20 | | | yyjclwyery-ipvridg-s | | | | 12 | | | affeine (BUTALBITAL | | | | | | | COMPOUND/ASA) per | | | | | | | tablet | | | | | | + + + +---------+ + + | Calcium Carbonate | TABS - 750 mg daily | | 0 | 02/18/20 | | | Antacid (ANTACID PO) | | | | 12 | | + + + +---------+ + + | Calcium | daily | | 0 | 02/18/20 | | | Carbonate-Vitamin D | | | | 12 | | | (CALCIUM + D) | | | | | | | 600-200 MG-UNIT TABS | | | | | | + + + +---------+ + + | Chlorpheniramine | TABS - 2 tablets | | 0 | 02/18/20 | | | Maleate (EQ | daily | | | 12 | | | CHLORTABS PO) | | | | | | + + + +---------+ + + | | apply three times | | 0 | 02/18/20 | | | clotrimazole-betamet | daily | | | 12 | | | hasone (LOTRISONE) | | | | | | | cream | | | | | | + + + +---------+ + + | Cranberry Extract | 4 tablets daily | | 0 | 02/18/20 | | | 250 MG TABS | | | | 12 | | + + + +---------+ + + | Cyanocobalamin | Take 2,000 mcg by | | 0 | 02/18/20 | | | (VITAMIN B-12) 2000 | mouth Daily. | | | 12 | | | MCG TBCR | | | | | | + + + +---------+ + + | diclofenac | Take 75 mg by mouth | | 0 | 02/18/20 | | | (VOLTAREN) 75 mg EC | 2 times daily. | | | 12 | | | tablet | | | | | | + + + +---------+ + + | folic acid 1 mg | Take 1 mg by mouth | | 0 | 02/18/20 | | | tablet | Daily. | | | 12 | | + + + +---------+ + + | gabapentin | Take 400 mg by mouth | | 0 | 07/30/19 | | | (NEURONTIN) 400 mg | 3 times daily. | | | 11 | | | capsule | | | | | | + + + +---------+ + + | | take 1/2 tablet by | | 0 | 02/18/20 | | | hydrochlorothiazide | mouth daily | | | 12 | | | 25 mg tablet | | | | | | + + + +---------+ + + | ibuprofen (ADVIL, | 4 tablets as needed | | 0 | 02/18/20 | | | MOTRIN) 200 mg | | | | 12 | | | tablet | | | | | | + + + +---------+ + + | lisinopril | Take 30 mg by mouth | | 0 | 02/18/20 | | | (PRINIVIL,ZESTRIL) | Daily. | | | 12 | | | 30 MG tablet | | | | | | + + + +---------+ + + | multivitamin | daily | | 0 | 02/18/20 | | | (THERAGRAN) per | | | | 12 | | | tablet | | | | | | + + + +---------+ + + | [place]-3 Fatty | Take 1,000 mg by | | 0 | 02/18/20 | | | Acids (FISH OIL | mouth Daily. | | | 12 | | | CONCENTRATE) 1000 MG | | | | | | | CAPS | | | | | | + + + +---------+ + + | omeprazole | Take 20 mg by mouth | | 0 | 02/18/20 | | | (PRILOSEC) 20 mg | Daily. | | | 12 | | | TBEC | | | | | | + + + +---------+ + + | triamcinolone | apply three times | | 0 | 02/18/20 | | | (KENALOG) 0.5% cream | daily | | | 12 | | + + + +---------+ + + documented as of this encounter ED Notes Garett Marcus MD - 01/13/2013 10:20 [place] [address] Patient Name: KASSI MAXWELL Provider: Unit #: [id number] Location: ER : 1940 DATE: 01/13/2013 CHIEF COMPLAINT: Rib pain and sacral pain. HISTORY OF PRESENT ILLNESS: Kassi is a 72-year-old female who a couple weeks ago was ki cked by a horse and ended up breaking multiple ribs, her sacrum and her sternum. She spent quite awhile at [facility] and was recently discharged a couple days ago. Since then she has continued to have a lot of pain in her chest and back and sacrum. She said her pain medicine is making her nauseous , so she came back to the ER for further evaluation. She said she has had chronic shortness of breath since then. She has had no vomiting, no di arrhea, no shortness of breath or other associated symptoms. PAST MEDICAL HISTORY: Significant for hypertension, osteoporosis, rheumatoid arthritis, ch ronic back pain, migraines. SOCIAL HISTORY: Does not smoke. REVIEW OF SYSTEMS: All systems reviewed were negative except as noted in HPI. PHYSICAL EXAMINATION GENERAL: A 72-year-old female in no apparent distress. INITIAL VITAL SIGNS: BP 153/76, pulse 88, respirations 20, temperature 100.4, saturation 8 7% on room air. HEENT: Pupils equally round and reactive to light. Mucous membranes are moist. Nasal passa ges are clear. Trachea is midline. CHEST: She has some crackles in the bases on the right, otherwise lungs are clear to auscu ltation bilaterally. No rales, no wheezes. CARDIOVASCULAR: Rate and rhythm is regular. ABDOMEN: Nontender, nondistended. EXTREMITIES: No edema. SKIN: No rash. EMERGENCY DEPARTMENT COURSE AND STUDIES: She had a chest x-ray which shows a right lower l obe effusion /infiltrate. I do not have a prior film after her trauma. She did have a chest tube on that side. She had a CBC, which was normal except for hematocrit of 32. Basic meta bolic panel was unremarkable. She received some Dilaudid, Zofran, and saline in the emergen cy department and felt much better. Pain was under control. ASSESSMENT: This is a 72-year-old female status post chest tube, multiple rib fractures an d trauma with a right-sided effusion and some pain control issues. She was switched over to oxycodone from Vicodin, given Phenergan for nausea at home. I als o started her on Levaquin as she could have an infiltrate in that effusion on the right cau sing her hypoxia. She was told to come back if she gets worse, otherwise to follow up with her doctor. DIAGNOSES 1. RIB PAIN. 2. PLEURAL EFFUSION. 3. POSSIBLE PNEUMONIA. 4. POST-TRAUMA PAIN ISSUES. DISPOSITION: Home. DICTATED BY: Garett Marcus M.D. Emergency Medicine JOB #: [id number] EXT JOB #:[id number] <<Signature on File>> LISSETT Limon 01/20/13 0718 < documented in this encounter Plan of Treatment +--------+---------+ + + + | Date | Type | Specialty | Care Team | Description | +--------+---------+ + + + | 02/17/ | Office | Rheumatology | Lonnie Mandel | | | 2020 | Visit | | MD William [address] | | | | | | [facility] | | | | | | [place] [address] | | | | | | [phone] | | | | | | | | +--------+---------+ + + + documented as of this encounter Procedures + +--------+ + + + | Procedure Name | Priori | Date/Time | Associated Diagnosis | Comments | | | ty | | | | + +--------+ + + + | XR CHEST AP PORTABLE | Routin | 01/13/2013 | | Results for this | | | e | 1:27 PM | | procedure are in the | | | | PDT | | results section. | + +--------+ + + + | CBC WITH | Routin | 01/13/2013 | | Results for this | | DIFFERENTIAL | e | 9:09 AM | | procedure are in the | | | | PDT | | results section. | + +--------+ + + + | BASIC METABOLIC | Routin | 01/13/2013 | | Results for this | | PANEL | e | 9:09 AM | | procedure are in the | | | | PDT | | results section. | + +--------+ + + + documented in this encounter Results XR Chest AP Portable (01/13/2013 1:27 PM PDT) + + | Specimen | + + | | + + + + + | Narrative | Performed At | + + + | [facility] | [place] | | Department [address] [facility] | [facility] | | [ rep [address]] [ rep [facility] | | [facility]] Signed | - IMAGING | | | | | Patient Name: HANSKASSI Physician: | | | MINE. : 1940 Age: 72 Sex: F Unit #: [id number] | | | Exam Date: 01/13/13 Location: ER | | | Report #: [id number] Page: | | | %(RAD)RES..mtdd.print.filter("pg") of %(RAD) | | | RES..mtdd.print.filter("tpg") | | | | | | Accession Number: [id number] | | | CHEST X-RAY CLINICAL HISTORY: COUGH. | | | COMPARISON: 11/10/2010. FINDINGS: AP view of the chest | | | was obtained. There is a moderate right pleural effusion. Associated | | | atelectasis of mild degree is also seen in the right lung base. | | | Overlapping pneumonia cannot be entirely excluded. There is mild | | | scarring versus atelectasis of the left lung base. Heart is of normal | | | size. Mediastinum is normal. There are no acute osseous | | | abnormalities. IMPRESSION: 1. MODERATE RIGHT | | | PLEURAL EFFUSION WITH SOME MILD COMPRESSIVE ATELECTASIS. OVERLAPPING | | | PNEUMONIA CANNOT BE ENTIRELY EXCLUDED. 2. MILD SCARRING | | | VERSUS ATELECTASIS OF LEFT LUNG BASE. 3. THIS | | | INFORMATION WAS CONVEYED TO THE ER. Dictated Date/Time: | | | 01/13/2013 13:27 Transcribed Date/Time: 01/13/2013 16:47 | | | Gauge Operator: <<Signature on File>> | | | | | | Eduardo Alonso MD01/13/13 5019 <Electronically signed by Eduardo Alonso | | | MD> Eduardo Alonso MD 01/13/13 1327 Gauge Operator: | | | [employer] Amfkliysgsdpt73/10/13 2923 Garett Marcus MD | | | | | + + + + + + + + | Performing | Address | City/State/Zipcode | Phone Number | | Organization | | | | + + + + + | [facility] | [address] | [place] | [phone] | | [facility] | | [address] | | | - IMAGING | | | | + + + + + CBC with Differential (01/13/2013 9:09 AM PDT) + + + + + + | Component | Value | Ref Range | Performed | Pathologist | | | | | At | Signature | + + + + + + | MANUAL | NO | | [facility] | | | DIFFERENTIA | | | [facility] | | | L ? | | | MEDICAL | | | | | | CENTER - | | | | | | LABORATORY | | + + + + + + | White Blood | 9.9 | 4.0 - 11.0 K/uL | [facility] | | | Cells | | | [facility] | | | | | | MEDICAL | | | | | | CENTER - | | | | | | LABORATORY | | + + + + + + | Red Blood | 3.46 (L) | 3.70 - 5.20 | [facility] | | | Cells | | M/uL | [facility] | | | | | | MEDICAL | | | | | | CENTER - | | | | | | LABORATORY | | + + + + + + | Hemoglobin | 10.3 (L) | 11.5 - 16.0 | [facility] | | | | | gm/dL | [facility] | | | | | | MEDICAL | | | | | | CENTER - | | | | | | LABORATORY | | + + + + + + | Hematocrit | 32.2 (L) | 34.0 - 47.0 % | [facility] | | | | | | [facility] | | | | | | MEDICAL | | | | | | CENTER - | | | | | | LABORATORY | | + + + + + + | MCV | 92.9 | 83.0 - 101.0 fL | [facility] | | | | | | [facility] | | | | | | MEDICAL | | | | | | CENTER - | | | | | | LABORATORY | | + + + + + + | MCH | 29.7 | 28.0 - 35.0 pg | [facility] | | | | | | [facility] | | | | | | MEDICAL | | | | | | CENTER - | | | | | | LABORATORY | | + + + + + + | MCHC | 32.0 | 32.0 - 36.0 | [facility] | | | | | g/dL | [facility] | | | | | | MEDICAL | | | | | | CENTER - | | | | | | LABORATORY | | + + + + + + | RDW-CV | 13.2 | <15.0 % | [facility] | | | | | | [facility] | | | | | | MEDICAL | | | | | | CENTER - | | | | | | LABORATORY | | + + + + + + | Platelet | 256 | 140 - 440 K/uL | [facility] | | | Count | | | [facility] | | | | | | MEDICAL | | | | | | CENTER - | | | | | | LABORATORY | | + + + + + + | % | 83.6 (H) | 45 - 75 % | [facility] | | | Neutrophils | | | [facility] | | | | | | MEDICAL | | | | | | CENTER - | | | | | | LABORATORY | | + + + + + + | % | 8.0 (L) | 20 - 45 % | [facility] | | | Lymphocytes | | | [facility] | | | | | | MEDICAL | | | | | | CENTER - | | | | | | LABORATORY | | + + + + + + | % Monocytes | 5.6 | 4 - 12 % | [facility] | | | | | | [facility] | | | | | | MEDICAL | | | | | | CENTER - | | | | | | LABORATORY | | + + + + + + | % | 2.3 | 0 - 5 % | [facility] | | | Eosinophils | | | [facility] | | | | | | MEDICAL | | | | | | CENTER - | | | | | | LABORATORY | | + + + + + + | % Basophils | 0.5 | 0 - 1 % | [facility] | | | | | | [facility] | | | | | | MEDICAL | | | | | | CENTER - | | | | | | LABORATORY | | + + + + + + | Absolute | 8.3 (H) | 1.5 - 6.6 K/uL | [facility] | | | Neutrophils | | | [facility] | | | | | | MEDICAL | | | | | | CENTER - | | | | | | LABORATORY | | + + + + + + | Absolute | 0.8 | 0.6 - 3.2 K/uL | [facility] | | | Lymphocytes | | | [facility] | | | | | | MEDICAL | | | | | | CENTER - | | | | | | LABORATORY | | + + + + + + | Absolute | 0.6 | 0.0 - 1.0 K/uL | [facility] | | | Monocytes | | | [facility] | | | | | | MEDICAL | | | | | | CENTER - | | | | | | LABORATORY | | + + + + + + | Absolute | 0.2 | 0.0 - 0.4 K/uL | [facility] | | | Eosinophils | | | [facility] | | | | | | MEDICAL | | | | | | CENTER - | | | | | | LABORATORY | | + + + + + + | Absolute | 0.1 | 0.0 - 0.1 K/uL | [facility] | | | Basophils | | | [facility] | | | | | | MEDICAL | | | | | | CENTER - | | | | | | LABORATORY | | + + + + + + + + | Specimen | + + | | + + + + + + + | Performing | Address | City[facility] | Phone Number | | Organization | | | | + + + + + | [facility] | [address] | [place] | [phone] | | [facility] | | [address] | | | - LABORATORY | | | | + + + + + | [facility] | [address] | [place] | | | [facility] | | [address] | | | - LABORATORY | | | | + + + + + Basic Metabolic Panel (01/13/2013 9:09 AM PDT) + + + + + + | Component | Value | Ref Range | Performed | Pathologist | | | | | At | Signature | + + + + + + | Glucose | 109 | 70 - 109 mg/dL | [facility] | | | | | | [facility] | | | | | | MEDICAL | | | | | | CENTER - | | | | | | LABORATORY | | + + + + + + | Calcium | 8.2 (L) | 8.3 - 10.5 | [facility] | | | | | mg/dL | [facility] | | | | | | MEDICAL | | | | | | CENTER - | | | | | | LABORATORY | | + + + + + + | BUN | 15 | 7 - 18 mg/dL | [facility] | | | | | | [facility] | | | | | | MEDICAL | | | | | | CENTER - | | | | | | LABORATORY | | + + + + + + | Creatinine | 0.82 | 0.60 - 1.30 | [facility] | | | | | mg/dL | [facility] | | | | | | MEDICAL | | | | | | CENTER - | | | | | | LABORATORY | | + + + + + + | Estimated | >60Comment: For | >60 mL/min/A | [facility] | | | GFR | -Americans, | | [facility] | | | | please multiply the | | MEDICAL | | | | result by 1.210 | | CENTER - | | | | This is an estimated | | LABORATORY | | | | GFR and is based on a | | | | | | standard adult | | | | | | body mass (A=1.73m2) and | | | | | | serum creatinine | | | | + + + + + + | BUN/Creatin | 18.3 | 12 - 20 | [facility] | | | ine Ratio | | | [facility] | | | | | | MEDICAL | | | | | | CENTER - | | | | | | LABORATORY | | + + + + + + | Na | 136 | 136 - 149 mEq/L | [facility] | | | | | | [facility] | | | | | | MEDICAL | | | | | | CENTER - | | | | | | LABORATORY | | + + + + + + | K | 3.6 | 3.5 - 5.1 mEq/l | [facility] | | | | | | [facility] | | | | | | MEDICAL | | | | | | CENTER - | | | | | | LABORATORY | | + + + + + + | Cl | 102 | 98 - 109 mEq/l | [facility] | | | | | | [facility] | | | | | | MEDICAL | | | | | | CENTER - | | | | | | LABORATORY | | + + + + + + | CO2 | 26 | 24 - 31 mEq/L | [facility] | | | | | | [facility] | | | | | | MEDICAL | | | | | | CENTER - | | | | | | LABORATORY | | + + + + + + | Anion Gap | 11.6 | 6.0 - 17.0 | [facility] | | | | | | [facility] | | | | | | MEDICAL | | | | | | CENTER - | | | | | | LABORATORY | | + + + + + + + + | Specimen | + + | | + + + + + + + | Performing | Address | City/State/Zipcode | Phone Number | | Organization | | | | + + + + + | [facility] | [address] | [place] | [phone] | | [facility] | | [address] | | | - LABORATORY | | | | + + + + + | [facility] | [address] | [place] | | | [facility] | | [address] [place] [address] | | | - LABORATORY | | | | + + + + + documented in this encounter Visit Diagnoses Not on filedocumented in this encounter
--- OUTSIDE RECORDS SUMMARY | ~2020-02-05 | XMS | Encounter Summary ---
Demographics + + + | Address | [address] | | | [place] [address] | + + + | Home Phone | | + + + | Preferred Language | Unknown | + + + | Marital Status | | + + + | Bahai Affiliation | 1028 | + + + | Race | White | + + + | Ethnic Group | Not or | + + + Author + + + | Author | [facility] | | | and [place] | + + + | Organization | [facility] | | [...] [place] | | | | | [address] | | + + + + + Care Team Providers + +------+ + | Care Marketing Traffic Manager Name | Role | Phone | + +------+ + | No, Unknownpcp | PCP | | + +------+ + Encounter Details +--------+ + + + + | Date | Type | Department | Care Team | Description | +--------+ + + + + | 01/29/ | Hospital | [facility] | Conversion | Fracture of rib with | | 2012 | Encounter | [facility] | Transaction, | flail chest | | | | [address] | Provider Unknown | | | | | [place], [place] | | | | | | [address] | (Fax) | | | | | [phone] | | | +--------+ + + + [...] | 0 | 02/18/20 | | | zoafjeenoy-wljtsma-c | | | | 12 | | [...] + + + +---------+ + + | [place]-3 Fatty | Take 1,000 mg by | [...] 2019 | Visit | | MD William [address] | | | | | | [address] | | | | | | [place] [address] | | | | | | [phone] | | | | | | | | +--------+---------+ + + + documented as of this encounter Procedures + +--------+ + + + | Procedure Name | Priori | Date/Time | Associated Diagnosis | Comments | | | ty | | | | + +--------+ + + + | XR CHEST 2 VIEWS | Routin | 01/29/2013 | | Results for this | | | e | 12:49 PM | | procedure are in the | | | | PDT | | results section. | + +--------+ + + + documented in this encounter Results XR Chest 2 Vws (01/29/2013 12:49 PM PDT) + + | Specimen | + + | | + + + + + | Narrative | Performed At | + + + | HISTORY: Injury right chest. Follow-up. COMPARISON: | | | 01/11/13. TECHNIQUE: Frontal and lateral films of the chest were | | | obtained. FINDINGS: Decrease in the right pleural effusion, | | | nearly resolved. Persistent mild elevation right hemidiaphragm. | | | Subpulmonic component effusion cannot be excluded. Minimal | | | blunting left posterior costophrenic sulcus, consistent with subtle | | | effusion. The right anterolateral mid rib fractures are poorly | | | defined given the degree of osteopenia. No pneumothorax. There is | | | a vertebral plasty of L3 with fractures of L2 and L3 better defined on | | | outside CT 01/06/13. Straightening of the normal thoracic kyphosis | | | with mild degenerative changes thoracic spine. IMPRESSION: 1. | | | Nearly resolved right, and minimal left effusions. Elevation right | | | hemidiaphragm. Subpulmonic component the right effusion cannot be | | | excluded. 2. No pneumothorax, again with multiple right | | | anterolateral rib fractures. | | + + + + + | Procedure Note | + + | Bernard, Rad Conversion - 01/26/2019 3:20 PM PDT HISTORY:Injury right chest. Follow-up. | | COMPARISON:01/11/13. TECHNIQUE:Frontal and lateral films of the chest were obtained. | | FINDINGS:Decrease in the right pleural effusion, nearly resolved. Persistent mild | | elevation right hemidiaphragm. Subpulmonic component effusion cannot be excluded. | | Minimal blunting left posterior costophrenic sulcus, consistent with subtle effusion. | | The right anterolateral mid rib fractures are poorly defined given the degree of | | osteopenia. No pneumothorax. There is a vertebral plasty of L3 with fractures of L2 | | and L3 better defined on outside CT 01/06/13. Straightening of the normal thoracic | | kyphosis with mild degenerative changes thoracic spine. IMPRESSION:1. Nearly resolved | | right, and minimal left effusions. Elevation right hemidiaphragm. Subpulmonic | | component the right effusion cannot be excluded.2. No pneumothorax, again with multiple | | right anterolateral rib fractures. Electronically signed by José Miguel Gallagher MD on | | 01/29/2013 1:33 PM | |with mild degenerative changes thoracic spine. | | | |IMPRESSION: | |1. Nearly resolved right, and minimal left effusions. Elevation right hemidiaphragm. Sub pulmonic component the right effusion cannot be excluded. | |2. No pneumothorax, again with multiple right anterolateral rib fractures. | | | | | + + documented in this encounter Visit Diagnoses + + | Diagnosis | + + | Fracture of rib with flail chest Flail chest | + + documented in this encounter"
--- OUTSIDE RECORDS SUMMARY | ~2020-02-05 | XMS | Encounter Summary ---
Demographics + + + | Address | [address] | | | [place] [address] | + + + | Home Phone | | + + + | Preferred Language | Unknown | + + + | Marital Status | | + + + | Adventism Affiliation | 1028 | + + + | Race | White | + + + | Ethnic Group | Not or | + + + Author + + + | Author | [facility] | | | and [place] | + + + | Organization | [facility] | | [...] [place] | | | | | [address] | | + + + + + Care Team Providers + +------+ + | Care Mentally Impaired Teacher Name | Role | Phone | + +------+ + PCP | Unavailable | + +------+ + Encounter Details +--------+ + + + + | Date | Type | Department | Care Team | Description | +--------+ + + + + | 02/26/ | Hospital | [facility] | | | | 2002 | Encounter | MED CTR XRAY [address] | | | | | [address] | | | | | | [place] [address] | | | | | | [phone] | | | +--------+ + + + [...] | | | | | [place] [address] | | | | | | [phone] | | | | | | | | +--------+---------+ + + + documented as of this encounter Visit Diagnoses Not on filedocumented in this encounter"
--- OUTSIDE RECORDS SUMMARY | ~2020-02-05 | XMS | Encounter Summary ---
Demographics + + + | Address | [address] | | | [place] [address] | + + + | Home Phone | | + + + | Preferred Language | Unknown | + + + | Marital Status | | + + + | Amish Affiliation | 1028 | + + + [...] [place] | | | | | [address] | | + + + + + Care Team Providers + +------+ + | Care Ammonia Nitrate Operator Name | Role | Phone | + +------+ + PCP | Unavailable | + +------+ + Encounter Details +--------+ + + + + | Date | Type | Department | Care Team | Description | +--------+ + + + + | 02/16/ | Abstract | [facility] | [facility] | | | 2011 | | Conversion Location | SR | | | | | [address] | | | | | | [place], [place] | | | | | | [address] | | | | | | [phone] | | | +--------+ + + + [...] + + documented as of this encounter Last Filed Vital Signs + + + + + | Vital Sign | Reading | Time Taken | Comments | + + + + + | Blood Pressure | - | - | | + + + + + | Pulse | - | - | | + + + + + | Temperature | - | - | | + + + + + | Respiratory Rate | - | - | | + + + + + | Oxygen Saturation | - | - | | + + + + + | Inhaled Oxygen | - | - | | | Concentration | | | | + + + + + | Weight | 56.7 kg (125 lb) | 07/30/2010 12:00 AM | | | | | PST | | + + + + + | Height | 175.3 cm (5' 9") | 07/30/2010 12:00 AM | | | | | PST | | + + + + + | Body Mass Index | 18.46 | 07/30/2010 12:00 AM | | | | | PST | | + + + + + documented in this encounter Plan of Treatment [...] | | | | | [place] [address] | | | | | | [phone] | | | | | | | | +--------+---------+ + + + documented as of this encounter Visit Diagnoses Not on filedocumented in this encounter
--- OUTSIDE RECORDS SUMMARY | ~2020-02-05 | XMS | Encounter Summary ---
Demographics + + + | Address | [address] | | | [place] [address] | + + + | Home Phone | | + + + | Preferred Language | Unknown | + + + | Marital Status | | + + + | Mormonism Affiliation | 1028 | + + + | Race | White | + + + | Ethnic Group | Not or | + + + Author + + + | Author | [facility] | | | and [place] | + + + | Organization | [facility] | | | and [place] | + + + | Address | Unknown | + + + | Phone | Unavailable | + + + Support + + + + + | Name | Relationship | Address | Phone | + + + + + | Matt Hampton | ECON | [address] | | | | | [place] | | | | | [address] | | + + + + + Care Team Providers + +------+ + | Care Extract Mixer Name | Role | Phone | + +------+ + PCP | Unavailable | + +------+ + Encounter Details +--------+ + + + + | Date | Type | Department | Care Team | Description | +--------+ + + + + | 04/23/ | Hospital | [facility] | | | | 2002 - | Encounter | MED CTR GENERIC IP | | | | | | CONV DEPT [address] | | | | 04/26/ | | [place], | | | | 2002 | | [place] [address] | | | | | | [phone] | | | +--------+ + + + [...] | | | | | [place] [address] | | | | | | [phone] | | | | | | | | +--------+---------+ + + + documented as of this encounter Visit Diagnoses Not on filedocumented in this encounter"
--- OUTSIDE RECORDS SUMMARY | ~2020-02-05 | XMS | Encounter Summary ---
Demographics + + + | Address | [address] | | | [place] [address] | + + + | Home Phone | | + + + | Preferred Language | Unknown | + + + | Marital Status | | + + + | Episcopalian Affiliation | 1028 | + + + | Race | White | + + + | Ethnic Group | Not or | + + + Author + + + | Author | [facility] | | | and [place] | + + + | Organization | [facility] | | | [...] [place] | | | | | [address] | | + + + + + Care Team Providers + +------+ + | Care Nursing Program Coordinator Name | Role | Phone | + +------+ + PCP | Unavailable | + +------+ + Encounter Details +--------+ + + + + | Date | Type | Department | Care Team | Description | +--------+ + + + + | 07/30/ | Hospital | [facility] | John Valles | | | 2010 | Encounter | MED CTR XRAY [address] | [address] | | | | | [place] | [place] | | | | | [place] [address] | [address] | | | | | [phone] | | | +--------+ + + + [...] Description | +--------+---------+ + + + | 09/14/ | Office | Rheumatology | Lonnie Mandel | | | 2020 | Visit | | MD William [address] | | | | | | [address] | | | | | | [place] [address] | | | | | | [phone] | | | | | | | | +--------+---------+ + + + documented as of this encounter Visit Diagnoses Not on filedocumented in this encounter"
--- OUTSIDE RECORDS SUMMARY | ~2020-02-05 | XMS | Clinical Summary ---
Demographics + + + | Address | [address] | | | [place] [address] | + + + | Home Phone | | + + + | Preferred Language | Unknown | + + + | Marital Status | | + + + | Zoroastrianism Affiliation | 1028 | + + + | Race | White | + + + | Ethnic Group | Not or | + + + Author + + + | Author | [facility] | | | and [place] | + + + | Organization | [facility] | | | and [place] | + [...] [place] | | | | | [address] | | + + + + + Care Team Providers + +------+ + | Care Assistant Restaurant General Manager Name | Role | Phone | + +------+ + | Obinna Borwn MD | PCP | | + +------+ + Allergies + + + + + + | Active Allergy | Reactions | Severity | Noted | Comments | | | | | Date | | + + + + + + | Amoxicillin-Pot | | | | | | Clavulanate | | | | | + + + + + + | Hydrocodone | | | 07/30/19 | | | | | | 11 | | + + + + + + | Morphine Sulfate | | | 07/30/19 | | | | | | 11 | | + + + + + + Medications + + + +---------+------+------+-------+ | Medication | Sig | Dispensed | Refills | Star | End | Statu | | | | | | t | Date | s | | | | | | Date | | | + + + +---------+------+------+-------+ | gabapentin | Take 400 mg by mouth | | 0 | 02/2 | | Activ | | (NEURONTIN) 400 mg | 3 times daily. | | | 4/20 | | e | | capsule | | | | 11 | | | + + + +---------+------+------+-------+ | omeprazole | Take 20 mg by mouth | | 0 | 09/1 | | Activ | | (PRILOSEC) 20 mg | Daily. | | | 4/20 | | e | | TBEC | | | | 12 | | | + + + +---------+------+------+-------+ | Cranberry Extract | 4 tablets daily | | 0 | 09/1 | | Activ | | 250 MG TABS | | | | 4/20 | | e | | | | | | 12 | | | + + + +---------+------+------+-------+ | alendronate | Take 70 mg by mouth | | 0 | 09/1 | | Activ | | (FOSAMAX) 70 mg | Once a week. | | | 4/20 | | e | | tablet | | | | 12 | | | + + + +---------+------+------+-------+ | lisinopril | Take 30 mg by mouth | | 0 | 09/1 | | Activ | | (PRINIVIL,ZESTRIL) | Daily. | | | 4/20 | | e | | 30 MG tablet | | | | 12 | | | + + + +---------+------+------+-------+ | Chlorpheniramine | TABS - 2 tablets | | 0 | 09/1 | | Activ | | Maleate (EQ | daily | | | 420 | | e | | CHLORTABS PO) | | | | 12 | | | + + + +---------+------+------+-------+ | aspirin (ADULT | Take 81 mg by mouth | | 0 | 09/1 | | Activ | | ASPIRIN EC LOW | Daily. | | | 420 | | e | | STRENGTH) 81 MG EC | | | | 12 | | | | tablet | | | | | | | + + + +---------+------+------+-------+ | Calcium Carbonate | TABS - 750 mg daily | | 0 | 09/1 | | Activ | | Antacid (ANTACID PO) | | | | 4/20 | | e | | | | | | 12 | | | + + + +---------+------+------+-------+ | amitriptyline | Take 10 mg by mouth | | 0 | 09/1 | | Activ | | (ELAVIL) 10 mg | Daily. | | | 4/20 | | e | | tablet | | | | 12 | | | + + + +---------+------+------+-------+ | multivitamin | daily | | 0 | 09/1 | | Activ | | (THERAGRAN) per | | | | 420 | | e | | tablet | | | | 12 | | | + + + +---------+------+------+-------+ | Ascorbic Acid | Take 1,000 mg by | | 0 | 09/1 | | Activ | | (VITAMIN C) 1000 MG | mouth Daily. | | | 4/20 | | e | | tablet | | | | 12 | | | + + + +---------+------+------+-------+ | Calcium | daily | | 0 | 09/1 | | Activ | | Carbonate-Vitamin D | | | | 4/20 | | e | | (CALCIUM + D) | | | | 12 | | | | 600-200 MG-UNIT TABS | | | | | | | + + + +---------+------+------+-------+ | ibuprofen (ADVIL, | 4 tablets as needed | | 0 | 09/1 | | Activ | | MOTRIN) 200 mg | | | | 4/20 | | e | | tablet | | | | 12 | | | + + + +---------+------+------+-------+ | | two times daily | | 0 | 09/1 | | Activ | | yvxijsccup-bxeyvja-j | | | | 4/20 | | e | | affeine (BUTALBITAL | | | | 12 | | | | COMPOUND/ASA) per | | | | | | | | tablet | | | | | | | + + + +---------+------+------+-------+ | Gwinner-3 Fatty | Take 1,000 mg by | | 0 | 09/1 | | Activ | | Acids (FISH OIL | mouth Daily. | | | 20 | | e | | CONCENTRATE) 1000 MG | | | | 12 | | | | CAPS | | | | | | | + + + +---------+------+------+-------+ | Cyanocobalamin | Take 2,000 mcg by | | 0 | 09/1 | | Activ | | (VITAMIN B-12) 2000 | mouth Daily. | | | 09/23 | | e | | MCG TBCR | | | | 12 | | | + + + +---------+------+------+-------+ | diclofenac | Take 75 mg by mouth | | 0 | 091 | | Activ | | (VOLTAREN) 75 mg EC | 2 times daily. | | | 20 | | e | | tablet | | | | 12 | | | + + + +---------+------+------+-------+ | Abatacept (ORENCIA | SOLR - 3 vials every | | 0 | 09/1 | | Activ | | IV) | 4 weeks | | | 420 | | e | | | | | | 12 | | | + + + +---------+------+------+-------+ | folic acid 1 mg | Take 1 mg by mouth | | 0 | 09/1 | | Activ | | tablet | Daily. | | | 4/20 | | e | | | | | | 12 | | | + + + +---------+------+------+-------+ | triamcinolone | apply three times | | 0 | 09/1 | | Activ | | (KENALOG) 0.5% cream | daily | | | 4/20 | | e | | | | | | 12 | | | + + + +---------+------+------+-------+ | | take 1/2 tablet by | | 0 | 09/1 | | Activ | | hydrochlorothiazide | mouth daily | | | 4/20 | | e | | 25 mg tablet | | | | 12 | | | + + + +---------+------+------+-------+ | | apply three times | | 0 | 09/1 | | Activ | | clotrimazole-betamet | daily | | | 09/23 | | e | | hasone (LOTRISONE) | | | | 12 | | | | cream | | | | | | | + + + +---------+------+------+-------+ Active Problems + + + | Problem | Noted Date | + + + | SPINAL STENOSIS, LUMBAR | | + + + | OSTEOPOROSIS | | + + + | RHEUMATOID ARTHRITIS | | + + + + + | Overview: ICD-10 Record update | + + + +---+ | THORACIC/LUMBOSACRAL NEURITIS/RADICULITIS UNSPEC | | + +---+ | FRACTURE, LUMBAR VERTEBRA, CLOSED | | + +---+ Social History + +-------+ +--------+------+ | Tobacco [...] on file | | + + + Last Filed Vital Signs + + + [...] | | + + + + + Plan of Treatment +--------+---------+ + + + | Date | Type | Specialty | Care Team | Description | +--------+---------+ + + + | 02/17/ | Office | Rheumatology | Lonnie Mandel | | | 2020 | Visit | | MD William [address] | | | | | | [address] | | | | | | [place] [address] | | | | | | [phone] | | | | | | | | +--------+---------+ + + + + + + + + | Health Maintenance | Due Date | Last | Comments | | | | Done | | + + + + + | Hepatitis C | | | | | Screening | 0 | | | + + + + + | Medication | | | | | Management | 0 | | | + + + + + | Vaccine: | | | | | Dtap/Tdap/Td (1 - | 9 | | | | Tdap) | | | | + + + + + | Vaccine: Zoster (1 | | | | | of 2) | 0 | | | + + + + + | Breast Cancer | | | | | Screening | 5 | | | + + + + + | Vaccine: | | | | | Pneumococcal 65+ (1 | 5 | | | | of 1 - PPSV23) | | | | + + + + + | Med Mgmt: BUN | | 01/14/20 | | | | 4 | 13 | | + + + + + | Med Mgmt: Cr | | 01/14/20 | | | | 4 | 13 | | + + + + + | Med Mgmt: K | | 01/14/20 | | | | 4 | 13 | | + + + + + | Med Mgmt: Na | | 01/14/20 | | | | 4 | 13 | | + + + + + | Med Mgmt: eGFR | | 01/14/20 | | | | 4 | 13 | | + + + + + | Adult Annual | | | | | Wellness Visit | 0 | | | + + + + + | Vaccine: Influenza | | | | | (#1) | 0 | | | + + + + + Results Not on filefrom Last 3 Months Insurance + +--------+ +--------+ + +--------+ | Payer | Benefi | Subscriber | Effect | Phone | Address | Type | | | t Plan | ID | sun | | | | | | / | | Dates | | | | | | Group | | | | | | + +--------+ +--------+ + +--------+ | MEDICARE | MEDICA | [id number] | 12/04/18 | [phone] | | Medica | | | RE | | 98-Pre | 5 | | re | | | PART A | | sent | | | | | | AND B | | | | | | + +--------+ +--------+ + +--------+ | MEDICARE | MEDICA | [id number] | 08/04/18 | [phone] | | Medica | | | RE | | 99-Pre | 5 | | re | | | PART A | | sent | | | | | | AND B | | | | | | + +--------+ +--------+ + +--------+ | MODA | MODA | [id number] | 06/06/19 | [id number] | [address] | Indemn | | | HEALTH | | 19-Pre | 9 | [id number] | ity | | | MDCR | | sent | | [place], | | | | [place] | | | | [place] [address] | | + +--------+ +--------+ + +--------+ | MODA | MODA | [id number] | 08/05/19 | [phone] | [address] | PPO | | | FIRST | | 08-Pre | 9 | [phone] | | | | CHOICE | | sent | | [place], | | | | | | | | [place] [address] | | + +--------+ +--------+ + +--------+ + +--------+ +--------+ + + | Guarantor Name | Accoun | Relation to | Date | Phone | Billing Address | | | t Type | Patient | of | | | | | | | | | | + +--------+ +--------+ + + | Felicita Hampton | Person | Self [birth year] | [address] | | | al/Fam | | 1940 | [phone] | [place], [place] | | | tori | | | 1 (Home) | [address] | + +--------+ +--------+ + + | Felicita Hampton Sena | Person | Self [birth year] | [address] | | | al/Fam | | 1940 | [phone] | [place], [place] | | | [place] | | | [address] (Home) | [address] | + +--------+ +--------+ + + Advance Directives + + + + + | Type | Date Recorded | Patient | Explanation | | | | System Configuration Specialist | | + + + + + | Power of | | | | | Ground Mixer | | | | + + + + + | Advance | | | | | Directive | | | | + + + + + | Advance | 01/13/2013 6:18 | | | | Directive | PM | | | + + + + +
--- OUTSIDE RECORDS SUMMARY | ~2020-02-05 | XMS | Encounter Summary ---
Demographics + + + | Address | [address] | | | [place] [address] | + + + | Home Phone | | + + + | Preferred Language | Unknown | + + + | Marital Status | | + + + | Mormonism Affiliation | 1028 | + + + | Race | White | + + + | Ethnic Group | Not or | + + + Author + + + | Author | [facility] | | | and [place] | + + + | Organization | [facility] | | | [...] [place] | | | | | [address] | | + + + + + Care Team Providers + +------+ + | Care Valance Cutter Name | Role | Phone | + +------+ + PCP | Unavailable | + +------+ + Encounter Details +--------+ + + + + | Date | Type | Department | Care Team | Description | +--------+ + + + + | 04/26/ | Hospital | [facility] | | | | 2002 - | Encounter | MED CTR GENERIC IP | | | | | | CONV DEPT [address] | | | | 05/03/ | | [place], | | | | 2002 | | [place] [address] | | | | | | [phone] | | | +--------+ + + + [...] | | | | | | [facility] | | | | | | [place] [address] | | | | | | [phone] | | | | | | | | +--------+---------+ + + + documented as of this encounter Visit Diagnoses Not on filedocumented in this encounter"
--- OUTSIDE RECORDS SUMMARY | ~2020-02-05 | XMS | Encounter Summary ---
Demographics + + + | Address | [address] | | | [place] [address] | + + + | Home Phone | | + + + | Preferred Language | Unknown | + + + | Marital Status | | + + + | Confucianist Affiliation | 1028 | + + + | Race | White | + + + | Ethnic Group | Not or | + + + Author + + + | Author | [facility] | | | and [place] | + + + | Organization | [facility] | | [...] [place] | | | | | [address] | | + + + + + Care Team Providers + +------+ + | Care Rework Operator Name | Role | Phone | + +------+ + PCP | Unavailable | + +------+ + Encounter Details +--------+ + + + + | Date | Type | Department | Care Team | Description | +--------+ + + + + | 05/11/ | Hospital | [facility] | | | | 2010 | Encounter | [facility] | | | | | | CLINICAL LABORATORY | | | | | | [address] | | | | | | [place], [place] | | | | | | [address] | | | | | | [phone] | | | +--------+ + + + [...] [address] | | | | | | [facility] | | | | | | [place] [address] | | | | | | [phone] | | | | | | | | +--------+---------+ + + + documented as of this encounter Visit Diagnoses Not on filedocumented in this encounter"
--- OUTSIDE RECORDS SUMMARY | ~2020-02-05 | XMS | Clinical Summary ---
Demographics + + + | Address | [address] | | | [place] [address] | + + + | Home Phone | | + + + | Preferred Language | Unknown | + + + | Marital Status | Unknown | + + + | Mandaen Affiliation | Unknown | + + + | Race | Unknown | + + + | Ethnic Group | Unknown | + + + Author + + + | Author | [facility] | + + + | Organization | [facility] | + + + | Address | Unknown | + + + | Phone | Unavailable | + + + Care Team Providers + +------+ + | Care Sleeve Setter Lockstitch Name | Role | Phone | + +------+ + PCP | Unavailable | + +------+ + Source Comments WILLIE is fully live on both [facility] and [facility] Allergies Not on File Medications Not on file Active Problems Not on file Social History + +-------+ +--------+------+ | Tobacco [...] + + + Last Filed Vital Signs Not on file Plan of Treatment + + +-------+ + | Health Maintenance | Due Date | Last | Comments | | | | Done | | + + +-------+ + | Pneumococcal | | | | | vaccination (1 of 2 | 5 | | | | - PCV13) | | | | + + +-------+ + | Influenza (Flu) | | | | | vaccination (#1) | 9 | | | + + +-------+ + Results Not on filefrom Last 3 Months"
--- OUTSIDE RECORDS SUMMARY | ~2020-02-05 | XMS | Encounter Summary ---
Demographics + + + | Address | [address] | | | [place] [address] | + + + | Home Phone [...] [place] | | | | | [address] | | + + + + + Care Team Providers + +------+ + | Care Mobile Development Manager Name | Role | Phone | + +------+ + PCP | Unavailable | + +------+ + Encounter Details +--------+ + + + + | Date | Type | Department | Care Team | Description | +--------+ + + + + | 01/26/ | Hospital | [facility] | | | | 1999 | Encounter | MED CTR XRAY [address] | | | | | | [place] | | | | | | [place] [address] | | | | | | [phone] | | | +--------+ + + + [...] | | | | | [place] [address] | | | | | | [phone] | | | | | | | | +--------+---------+ + + + documented as of this encounter Visit Diagnoses Not on filedocumented in this encounter"
--- OUTSIDE RECORDS SUMMARY | ~2020-02-05 | XMS | Encounter Summary ---
Demographics + + + | Address | [address] | | | [place] [address] | + + + | Home Phone [...] [place] | | | | | [address] | | + + + + + Care Team Providers + +------+ + | Care Reinsurance Clerk Name | Role | Phone | + +------+ + PCP | Unavailable | + +------+ + Encounter Details +--------+ + + + + | Date | Type | Department | Care Team | Description | +--------+ + + + + | 12/24/ | Hospital | [facility] | | | | 1998 | Encounter | MED CTR GENERIC OP | | | | | | CONV DEPT [address] | | | | | | [place], | | | | | | [place] [address] | | | | | | [phone] | | | +--------+ + + + [...] | | | | | | [facility] | | | | | | [place] [address] | | | | | | [phone] | | | | | | | | +--------+---------+ + + + documented as of this encounter Visit Diagnoses Not on filedocumented in this encounter"
--- OUTSIDE RECORDS SUMMARY | ~2020-02-05 | XMS | Encounter Summary ---
Demographics + + + | Address | [address] | | | [place] [address] | + + + | Home Phone | | + + + | Preferred Language | Unknown | + + + | Marital Status | | + + + | Yazidism Affiliation | 1028 | + + + [...] [place] | | | | | [address] | | + + + + + Care Team Providers + +------+ + | Care Channel Lip Stiffener Insoles Name | Role | Phone | + +------+ + | Carlyle Gallagher MD | PCP | | + +------+ + Encounter Details +--------+ + + + + | Date | Type | Department | Care Team | Description | +--------+ + + + + | 03/01/ | Orders Only | [facility] | Carlyle Gallagher | | | 2011 | | [address] | MD [address] | | | | | [place], [place] | [place] | | | | | [address] | [place] [address] | | | | | [phone] | [phone] | | | | | | | [...] 2020 | Visit | | MD William [address] | | | | | | [facility] | | | | | | [place] [address] | | | | | | [phone] | | | | | | | | +--------+---------+ + + + documented as of this encounter Procedures + +--------+ + + + | Procedure Name | Priori | Date/Time | Associated Diagnosis | Comments | | | ty | | | | + +--------+ + + + | CULTURE, URINE | Routin | 03/01/2012 | | Results for this | | | e | 10:00 AM | | procedure are in the | | | | PDT | | results section. | + +--------+ + + + documented in this encounter Results Culture, Urine (03/01/2012 10:00 AM PDT) + + | Specimen | + + | | + + + + + | Narrative | Performed At | + + + | Specimen Description URINE, COLLECTION NOT | EXTERNAL LAB | | GIVEN Testing | | | performed at [facility];[address];[place] [address] CULTURE | | | NO GROWTH 2 DAYS Corrected on | | | 03/03 AT 1210: previously reported as <10,000 CFU/ML MIXED GRAM | | | POSITIVE CAT NO SUSCEPTIBILITY TO FOLLOW | | | Testing performed at [facility];[address] | | | [place] [address] REPORT STATUS | | | 03/03/2012 FINAL | | + + + + +---------+ + + | Performing | Address | City/State/Zipcode | Phone Number | | Organization | | | | + +---------+ + + | EXTERNAL LAB | | | | + +---------+ + + documented in this encounter Visit Diagnoses Not on filedocumented in this encounter"
--- OUTSIDE RECORDS SUMMARY | ~2020-02-05 | XMS | Encounter Summary ---
Demographics + + + | Address | [address] | | | [place] [address] | + + + | Home Phone | | + + + | Preferred Language | Unknown | + + + | Marital Status | | + + + | Lutheran Affiliation | 1028 | + + + | Race | White | + + + | Ethnic Group | Not or | + + + Author + + + | Author | [facility] | | | and [place] | + + + | Organization | [facility] | | | [...] [place] | | | | | [address] | | + + + + + Care Team Providers + +------+ + | Care Consumer Insights Specialist Name | Role | Phone | + +------+ + PCP | Unavailable | + +------+ + Encounter Details +--------+ + + + + | Date | Type | Department | Care Team | Description | +--------+ + + + + | 11/19/ | Hospital | [facility] | | | | 2002 | Encounter | MED CTR XRAY [address] | | | | | | [place] [address] | | | | | | [place] [address] | | | | | | [phone] | | | +--------+ + + + [...] | | | | | [place] [address] | | | | | | [phone] | | | | | | | | +--------+---------+ + + + documented as of this encounter Visit Diagnoses Not on filedocumented in this encounter"
--- OUTSIDE RECORDS SUMMARY | ~2020-02-05 | XMS | Encounter Summary ---
Demographics + + + | Address | [address] | | | [place] [address] | + + + | Home Phone | | + + + | Preferred Language | Unknown | + + + | Marital Status | | + + + | Hinduism Affiliation | 1028 | + + + | Race | White | + + + | Ethnic Group | Not or | + + + Author + + + | Author | [facility] | | | and [place] | + + + | Organization | [facility] | | | [...] [place] | | | | | [id number] | | + + + + + Care Team Providers + +------+ + | Care Thermoforming Machine Operator Name | Role | Phone | + +------+ + PCP | Unavailable | + +------+ + Encounter Details +--------+ + + + + | Date | Type | Department | Care Team | Description | +--------+ + + + + | 01/06/ | Hospital | [facility] | Elza Sue, | Flail chest; | | 2013 - | Encounter | [facility] [address] | [address] | Fracture of rib with | | | | [address] | [address], | flail chest; | | 01/11/ | | [place], [place] | [place] [address] | Hemopneumothorax on | | 2012 | | [address] | [phone] | right; Hypotension, | | | | [phone] | | unspecified; SIRS | | | | | | (systemic | | | | | | inflammatory | | | | | | response syndrome) | | | | | | (HCC); | | | | | | Transaminitis; | | | | | | Diagnosis unknown; | | | | | | Pneumothorax; | | | | | | Hemothorax; Sacral | | | | | | fracture (HCC); | | | | | | Sternal fracture; | | | | | | Hypotension; Acute | | | | | | posthemorrhagic | | | | | | anemia; Blunt chest | | | | | | trauma; Chest pain, | | | | | | unspecified | +--------+ + + + + Social [...] + + documented as of this encounter Discharge Summaries Elza Sue MD - 01/11/2013 8:08 AM PDTFormatting of this note might be different fr om the original. Discharge Summaries by Elza Sue MD at 01/11/13807 Author: Elza Sue MD Service: (none) Author Type: Physician Filed: 01/11/1353 Date of Service: 01/11/13807 Status: Signed Electrical Engineering Draftsperson: Elza Sue MD (Physician) Related Notes: Original Note by Elza Sue MD (Physician) filed at 01/11/13810 [facility] Service: General Surgery Discharge Summary Date of Admission: 01/06/2013 Date of Discharge: 01/11/2013 Discharge Provider: ELZA SUE MD Treatment Team: Consulting Physician: Elza Sue MD Consulting Physician: Suzanne Leon MD Consulting Physician: Jeffrey Martinez MD Consulting Physician: Ronal Shah MD Admitting Provider: Elza Sue MD Discharge Diagnoses: Principal Problem: *Transaminitis Active Problems: Fracture of rib with flail chest SIRS (systemic inflammatory response syndrome) Hypotension, unspecified Chest pain, unspecified Hemopneumothorax on right Sacral fracture Blunt chest trauma Acute posthemorrhagic anemia Resolved Problems: * No resolved hospital problems. * Final Diagnoses: Multiple rib fractures/ pneumothorax Procedures: * No surgery found * Significant Diagnostic Studies: Labs: BRIEF HISTORY OF PRESENTATION: Kassi Maxwell is a 72 y.o. female who This patient presented to the emergency room after being kicked in the chest by a horse causing multiple chest fractures, rib fractures and a hemopneumothorax on the right. A chest tube was placed and she was transferred to [facility] for care. HOSPITAL COURSE: Because of the proximity of the cardiovascular structures and sternal deformity she wa s admitted to ICU. Chest tube was placed. She had mild hypotension initially responding to f luids. Chest tube drainage was moderate. Air leak resolved in about [address] Edward linn s consulted and was available for cardiovascular concerns. After 2 to 3 days she was transfe rred to the floor where ongoing pain control, physical therapy and chest physiotherapy were ongoing. She had a lot of nausea which is common for her with all of her opiates at this poi nt but she does take hydrocodone chronically. Today pain is relatively in control. She is to lerating a regular diet. Her oxygenation is good and she is going to be transferred to [facility]. That will be in [place]. [facility]. Follow up with me will be in approximately 2 weeks. Past Medical History Diagnosis Date Hypertension Osteoporosis Rheumatoid arthritis Past Surgical History Procedure Date Unlisted procedure arthroscopy Hysterectomy Back surgery Colonoscopy Allergies Allergen Reactions Codeine Nausea and Vomiting Hydrocodone Nausea and Vomiting Morphine Nausea and Vomiting Percocet (Oxycodone-Acetaminophen) Nausea and Vomiting Propoxyphene Nausea and Vomiting Prescriptions prior to admission Medication Sig Dispense Refill aspirin 81 MG EC tablet Take 81 mg by mouth daily with breakfast. Abatacept (ORENCIA IV) Inject into the vein every 28 days. 2 vials every 4 weeks for R A alendronate (FOSAMAX) 70 MG tablet Take 70 mg by mouth every 7 days. Take in the mornin g with a full glass of water, on an empty stomach, and do not take anything else by mouth or lie down for the next 30 min. dcecwiquun-vupenns-wymdzixq (FIORINAL) 50-325-40 MG per tablet Take 2 tablets by mouth daily as needed. calcium carbonate (TUMS EX) 750 MG chewable tablet Take 2 tablets by mouth daily. folic acid (FOLVITE) 1 MG tablet Take 1 mg by mouth daily. HYDROcodone-acetaminophen (NORCO) 5-325 MG per tablet Take 1 tablet by mouth every 6 (s ix) hours as needed. ibuprofen (ADVIL,MOTRIN) 200 MG tablet Take 200 mg by mouth every 6 (six) hours as need ed. lisinopril (PRINIVIL,ZESTRIL) 30 MG tablet Take 30 mg by mouth daily. Indications: High Blood Pressure meloxicam (MOBIC) 15 MG tablet Take 15 mg by mouth daily. omeprazole (PRILOSEC) 20 MG capsule Take 20 mg by mouth every morning before breakfast. sumatriptan (IMITREX) 100 MG tablet Take 100 mg by mouth as needed. 2 tabs in 24 hrs topiramate (TOPAMAX) 100 MG tablet Take 100 mg by mouth 2 (two) times daily. DISCONTD: UNKNOWN TO PATIENT as needed. OTC stool softner DISCONTD: zolpidem (AMBIEN) 10 MG tablet Take 10 mg by mouth nightly as needed. DISCHARGE EXAM Vital Signs: BP 138/74 | Pulse 71 | Temp 98.2 F (36.8 C) (Oral) | Resp 18 | Ht 1.753 m (5' 9.02") | Wt 59.1 kg (130 lb 4.7 oz) | BMI 19.23 kg/m2 | SpO2 97% | ? No Temp: [97.8 F (36.6 C)-98.7 F (37.1 C)] 98.2 F (36.8 C) (01/11 730) BP: (137-161)/(74-86) 138/74 mmHg (01/11 730) Heart Rate: [70-86] 71 (01/11 730) Resp: [14-18] 18 (01/11 730) SpO2: [84 %-100 %] 97 % (01/11 730) Weight: [59.1 kg (130 lb 4.7 oz)] 59.1 kg (130 lb 4.7 oz) (01/12 552) Physical Exam Pulmonary/Chest: Effort normal and breath sounds normal. No respiratory distress. She has n o wheezes. She has no rales. She exhibits no tenderness. DATA CBC: Lab Results Component Value Date WBC 6.1 01/11/2013 RBC 2.86* 01/11/2013 HGB 8.9* 01/11/2013 HCT 25.9* 01/11/2013 MCV 90.6 01/11/2013 MCH 31.2 01/11/2013 MCHC 34.4 01/11/2013 RDW 40.7 01/11/2013 PLT 147* 01/11/2013 MPV 7.5 01/11/2013 DIFFTYPE AUTOMATED 01/11/2013 PLAN Patient will be discharged to care home facility. Ongoing chest physiotherapy, pain c ontrol will continue. She will follow up with me in 2 weeks. She was counseled regarding the need to return to the hospital for cough, shortness of breath, hemoptysis, or other unbeara ble pain conditions. Disposition: Home Condition: Good Code Status: Full Code No discharge procedures on file. Follow up: Elza Sue MD [address] [place] [id number] In 2 weeks Current Discharge Medication List START taking these medications Details !! HYDROcodone-acetaminophen (NORCO) 5-325 MG per tablet Take 1-2 tablets by mouth every 4 (four) hours as needed for Pain. Qty: 30 tablet, Refills: 2 !! - Potential duplicate medications found. Please discuss with provider. CONTINUE these medications which have NOT CHANGED Details aspirin 81 MG EC tablet Take 81 mg by mouth daily with breakfast. Abatacept (ORENCIA IV) Inject into the vein every 28 days. 2 vials every 4 weeks for RA alendronate (FOSAMAX) 70 MG tablet Take 70 mg by mouth every 7 days. Take in the morning w ith a full glass of water, on an empty stomach, and do not take anything else by mouth or li e down for the next 30 min. tnmlmclyak-xzcexep-yrxbzhwa (FIORINAL) 50-325-40 MG per tablet Take 2 tablets by mouth dali ly as needed. calcium carbonate (TUMS EX) 750 MG chewable tablet Take 2 tablets by mouth daily. folic acid (FOLVITE) 1 MG tablet Take 1 mg by mouth daily. !! HYDROcodone-acetaminophen (NORCO) 5-325 MG per tablet Take 1 tablet by mouth every 6 (s ix) hours as needed. ibuprofen (ADVIL,MOTRIN) 200 MG tablet Take 200 mg by mouth every 6 (six) hours as needed. lisinopril (PRINIVIL,ZESTRIL) 30 MG tablet Take 30 mg by mouth daily. Indications: High Bl ood Pressure meloxicam (MOBIC) 15 MG tablet Take 15 mg by mouth daily. omeprazole (PRILOSEC) 20 MG capsule Take 20 mg by mouth every morning before breakfast. sumatriptan (IMITREX) 100 MG tablet Take 100 mg by mouth as needed. 2 tabs in 24 hrs topiramate (TOPAMAX) 100 MG tablet Take 100 mg by mouth 2 (two) times daily. !! - Potential duplicate medications found. Please discuss with provider. STOP taking these medications UNKNOWN TO PATIENT Comments: Reason for Stopping: zolpidem (AMBIEN) 10 MG tablet Comments: Reason for Stopping: Discharge took 30 minutes, to include final examination, discussion of admission, and prep aration of prescriptions, instructions for on-going care, follow-up and documentation of dis charge summary. ELZA SUE MD 01/11/2013 documented in this encounter Medications at Time of Discharge [...] mg by mouth | | 0 | 09/14/20 | | | ASPIRIN EC LOW | Daily. | | | 12 | | | STRENGTH) 81 MG EC | | | | | | | tablet | | | | | | + + + +---------+ + + | | two times daily | | 0 | 02/18/20 | | | uycseboqgx-zdohjpw-g | | | | 12 | | [...] + + + +---------+ + + | Cummings-3 Fatty | Take 1,000 mg by | [...] + + documented as of this encounter Progress Notes Conversion Transaction, Provider Unknown - 01/11/2013 11:07 AM PDTFormatting of this note m ight be different from the original. Progress Notes by Jongcynthia Pérez PTA at 01/11/13 1107 Author: Jong Pérez PTA Service: (none) Author Type: Optical Effects Line Up Person Filed: 01/11/13 1109 Date of Service: 01/11/13 110 Status: Signed Electrical Engineering Draftsperson: Jong Pérez PTA (Optical Effects Line Up Person) 01/11/13 1107 PT Last Visit PT Received On 01/11/13 Requires PT Follow Up Yes Assistance Required 1 person Cognition Overall Cognitive Status WFL Orientation Level Oriented Bed Mobility Supine to Sit Supervision Scooting Supervision Transfers Sit to/from Stand Supervision Bed to/from Chair Supervision Mobility Ambulation Assistance Supervision Maximal Ambulation Distance (feet) 15 Total Ambulation Distance (feet) 30 Distance limited by? Patient's ability Pattern Alternating;Decreased crow Assistive Device Walker front wheeled Supine Supine-Exercise Type Ankle pumps;Quad sets;Glut sets;ABD/ADD;Heel slides Activity Tolerance Activity Tolerance Patient limited by shortness of breath (SOB) Plan Treatment/Interventions Continue per Primary PT POC Progress Progressing toward goals Recommendation Recommendations Rehab consult;Home with 24 hr supervision/assist onver alex Transaction, Provider Unknown - 01/11/2013 10:44 AM PDT Progress Notes by Loli Broussard RN at 01/11/13 1044 Author: Loli Broussard RN Service: (none) Author Type: Registered Nurse Filed: 01/11/13 1047 Date of Service: 01/11/13 1044 Status: Signed Electrical Engineering Draftsperson: Loli Broussard RN (Registered Nurse) Report called to RN at [facility]. Family to transport patient via private vehicle. Waiti for family to arrive. Chart copied and sent with patient. LOLI BROUSSARD RN 01/11/2013 10:47 AM onver alex Transaction, Provider Unknown - 01/11/2013 8:26 AM PDT Case Management by LEEANNA Weiss at 01/11/13 0826 Author: LEEANNA Weiss Service: (none) Author Type: Public School Teacher Filed: 01/11/13826 Date of Service: 01/11/13825 Status: Signed Electrical Engineering Draftsperson: LEEANNA Weiss (Public School Teacher) CM faxed MD's discharge orders to [facility] and arranged for family to transport. CM notif ied pt & family of the discharge time. Pt had no other resource concerns. Discharge Plan: [facility] SHEETMETAL TRADES WORKER Suzanne Roque MD - 01/11/2013 6:32 AM PDTFormatting of this note might be different from the o riginal. Progress Notes by Suzanne Leon MD at 01/11/13631 Author: Suzanne Leon MD Service: (none) Author Type: Physician Filed: 01/11/13635 Date of Service: 01/11/13631 Status: Signed Electrical Engineering Draftsperson: Suzanne eLon MD (Physician) [facility] Service: Cardiothoracic Surgery Progress Note Hospital Day: LOS: 5 days Post-Op Day: * No surgery found * SUBJECTIVE Patient Summary: Events Overnight: nausea an issue overnight No BM Scheduled Medications docusate sodium 100 mg Oral BID Or docusate 100 mg Per OG Tube BID insulin aspart 0-3 Units Subcutaneous TID AC insulin aspart 0-3 Units Subcutaneous Nightly insulin aspart 1 Units Subcutaneous TID AC insulin glargine 6 Units Subcutaneous Nightly lidocaine metoclopramide 10 mg Intravenous Q6H polyethylene glycol 17 g Oral Daily multivitamin & minerals w iron/FA 1 tablet Oral Daily with breakfast DISCONTD: HYDROcodone-acetaminophen 1 tablet Oral Q4H DISCONTD: insulin glargine 6 Units Subcutaneous Once Continuous Infusions dextrose 5 % and 0.45 % NaCl 30 mL/hr at 01/08/13 1528 sodium chloride 30 mL/hr at 01/08/13 1529 PRN Medications acetaminophen, acetaminophen, dextrose, dextrose, dextrose, heparin flush (porcine), HYDROc odone-acetaminophen, ibuprofen, lip moisturizer, magnesium hydroxide, nystatin, nystatin, on dansetron, ondansetron, potassium chloride, potassium chloride, potassium chloride, potassiu m chloride, potassium chloride, potassium chloride, promethazine, white petrolatum, DISCONTD : oxyCODONE-acetaminophen, DISCONTD: oxyCODONE-acetaminophen OBJECTIVE Vital Signs: BP 143/84 | Pulse 70 | Temp 98.4 F (36.9 C) (Oral) | Resp 18 | Ht 1.753 m (5' 9.02") | Wt 59.1 kg (130 lb 4.7 oz) | BMI 19.23 kg/m2 | SpO2 95% | ? No Temp: [97.8 F (36.6 C)-98.7 F (37.1 C)] 98.4 F (36.9 C) (01/11 329) BP: (137-161)/(77-86) 143/84 mmHg (01/11 329) Heart Rate: [70-86] 70 (01/11 329) Resp: [14-18] 18 (01/11 329) SpO2: [95 %-100 %] 95 % (01/11 329) Weight: [59.1 kg (130 lb 4.7 oz)] 59.1 kg (130 lb 4.7 oz) (01/12 552) Physical Exam Vitals reviewed. Constitutional: She is oriented to person, place, and time. She appears well-developed and well-nourished. HENT: Head: Normocephalic. Neck: No JVD present. Cardiovascular: Normal rate, regular rhythm and normal heart sounds. Pulmonary/Chest: Breath sounds normal. Abdominal: Soft. Bowel sounds are normal. Musculoskeletal: Normal range of motion. She exhibits no edema. Neurological: She is alert and oriented to person, place, and time. DATA CBC: Lab Results Component Value Date WBC 6.1 01/11/2013 RBC 2.86* 01/11/2013 HGB 8.9* 01/11/2013 HCT 25.9* 01/11/2013 MCV 90.6 01/11/2013 MCH 31.2 01/11/2013 MCHC 34.4 01/11/2013 RDW 40.7 01/11/2013 PLT 147* 01/11/2013 MPV 7.5 01/11/2013 DIFFTYPE AUTOMATED 01/11/2013 CMP: Lab Results Component Value Date NA 136 01/11/2013 K 3.8 01/11/2013 CL 100 01/11/2013 CO2 33* 01/11/2013 ANIONGAP 7 01/11/2013 GLUF 86 01/11/2013 BUN 13 01/11/2013 CREATININE 0.60 01/11/2013 BCR 22 01/11/2013 CA 8.2* 01/11/2013 PROT 5.3* 01/08/2013 ALB 3.2* 01/08/2013 GLOB 2.4 01/06/2013 BILITOT 0.3 01/08/2013 ALP 42 01/08/2013 AST 42 01/08/2013 ALT 34 01/08/2013 EGFR >60 01/11/2013 PROBLEM LIST Principal Problem: *Transaminitis Active Problems: Fracture of rib with flail chest SIRS (systemic inflammatory response syndrome) Hypotension, unspecified Chest pain, unspecified Hemopneumothorax on right Sacral fracture Blunt chest trauma Acute posthemorrhagic anemia ASSESSMENT & PLAN Discharge Planning Ambulate Encourage IS Wean off oxygen Doculax supp Probably rehab today if CXR OK Disposition: Code Status: Full Code SUZANNE LEON MD 01/11/2013 onversio n Transaction, Provider Unknown - 01/10/2013 9:57 AM PDTFormatting of this note might be di fferent from the original. Case Management by LEEANNA Weiss at 01/10/13 0957 Author: LEEANNA Weiss Service: (none) Author Type: Public School Teacher Filed: 01/10/13 1001 Date of Service: 01/10/13956 Status: Signed Electrical Engineering Draftsperson: LEEANNA Weiss (Public School Teacher) CM met with pt for continued discharge planning. Pt stated she no longer wants to go to [facility] but wants SNF placement in the [place] area. All [place] SNFs have agree d to accept pt. However, pt is undecided as to which SNF she wants. CM encouraged pt to have her family tour the facilities. CM notified pt that Medicare does not pay for transportatio n out of the [place] area. Pt stated her family can transport her. CM will continue working on discharge planning. Discharge Plan: SNF [facility] onver alex Transaction, Provider Unknown - 01/10/2013 9:27 AM PDT Progress Notes by Jong Pérez PTA at 01/10/13926 Author: Jong Pérez PTA Service: (none) Author Type: Optical Effects Line Up Person Filed: 01/10/13928 Date of Service: 01/10/13926 Status: Signed Electrical Engineering Draftsperson: Jong Pérez PTA (Optical Effects Line Up Person) 01/10/13926 PT Last Visit PT Received On 01/10/13 Requires PT Follow Up Yes Assistance Required 1 person Cognition Overall Cognitive Status WFL Orientation Level Oriented Bed Mobility Supine to Sit Min assist (1 LE OOB) Scooting Minimal assist Transfers Sit to/from Stand Minimal assist (steadying/contact guard) Bed to/from Chair Minimal assist (steadying/contact guard) Mobility Ambulation Assistance Minimal assist Maximal Ambulation Distance (feet) 35 Total Ambulation Distance (feet) 35 Distance limited by? Patient's ability Pattern Alternating;Decreased crow Assistive Device Walker front wheeled Supine Supine-Exercise Type Ankle pumps;Quad sets;Glut sets;ABD/ADD;Heel slides Plan Treatment/Interventions Continue per Primary PT POC Progress Progressing toward goals Recommendation Recommendations Rehab consult Suzanne Roque MD - 01/10/2013 8:37 AM PDTFormatting of this note might be different from the o riginal. Progress Notes by Suzanne Leon MD at 01/10/13836 Author: Suzanne Leon MD Service: (none) Author Type: Physician Filed: 01/11/13631 Date of Service: 01/10/13836 Status: Signed Electrical Engineering Draftsperson: Suzanne Leon MD (Physician) [facility] Service: Cardiothoracic Surgery Progress Note Hospital Day: LOS: 4 days Post-Op Day: * No surgery found * SUBJECTIVE Patient Summary: Events Overnight: Good pain control No new issues overnight CXR did not show any e/o pneumothorax or collection Scheduled Medications docusate sodium 100 mg Oral BID Or docusate 100 mg Per OG Tube BID insulin aspart 0-3 Units Subcutaneous TID AC insulin aspart 0-3 Units Subcutaneous Nightly insulin aspart 1 Units Subcutaneous TID AC insulin glargine 6 Units Subcutaneous Once insulin glargine 6 Units Subcutaneous Nightly metoclopramide 10 mg Intravenous Q6H polyethylene glycol 17 g Oral Daily multivitamin & minerals w iron/FA 1 tablet Oral Daily with breakfast DISCONTD: HYDROcodone-acetaminophen 1 tablet Oral Q4H DISCONTD: omeprazole 20 mg Oral QAM AC DISCONTD: pantoprazole 40 mg Intravenous QAM AC Continuous Infusions dextrose 5 % and 0.45 % NaCl 30 mL/hr at 01/08/13 1528 sodium chloride 30 mL/hr at 01/08/13 1529 DISCONTD: DOPamine in D5W 1.6 mg/mL Stopped (01/08/13 1323) DISCONTD: norepinephrine in D5W 64 mcg/mL Stopped (01/08/132024) PRN Medications acetaminophen, acetaminophen, dextrose, dextrose, dextrose, lip moisturizer, magnesium hydr oxide, nystatin, nystatin, ondansetron, ondansetron, oxyCODONE-acetaminophen, oxyCODONE-acet aminophen, potassium chloride, potassium chloride, potassium chloride, potassium chloride, p otassium chloride, potassium chloride, promethazine, white petrolatum, DISCONTD: dextrose, D ISCONTD: dextrose, DISCONTD: HYDROmorphone, DISCONTD: magnesium sulfate DISCONTD: magnesium sulfate, DISCONTD: magnesium sulfate, DISCONTD: sodium phosphate IVPB 1 5 mmol, DISCONTD: sodium phosphate IVPB 30 mmol OBJECTIVE Vital Signs: BP 175/86 | Pulse 83 | Temp 97.4 F (36.3 C) (Oral) | Resp 16 | Ht 1.753 m (5' 9.02") | Wt 60.5 kg (133 lb 6.1 oz) | BMI 19.69 kg/m2 | SpO2 98% | ? No Temp: [97.4 F (36.3 C)-98.2 F (36.8 C)] 97.4 F (36.3 C) (01/11 448) BP: (129-185)/(63-86) 175/86 mmHg (01/11 448) Heart Rate: [70-83] 83 (01/11 448) Resp: [16] 16 (01/11 448) SpO2: [98 %-100 %] 98 % (01/11 448) Weight: [60.5 kg (133 lb 6.1 oz)] 60.5 kg (133 lb 6.1 oz) (01/11 448) Physical Exam Vitals reviewed. Constitutional: She is oriented to person, place, and time. She appears well-developed and well-nourished. HENT: Head: Normocephalic. Neck: No JVD present. Cardiovascular: Normal rate, regular rhythm and normal heart sounds. Pulmonary/Chest: Breath sounds normal. Abdominal: Soft. Bowel sounds are normal. Musculoskeletal: Normal range of motion. She exhibits no edema. Neurological: She is alert and oriented to person, place, and time. DATA CBC: Lab Results Component Value Date WBC 6.1 01/10/2013 RBC 2.95* 01/10/2013 HGB 8.9* 01/10/2013 HCT 26.8* 01/10/2013 MCV 91.0 01/10/2013 MCH 30.2 01/10/2013 MCHC 33.2 01/10/2013 RDW 41.1 01/10/2013 PLT 112* 01/10/2013 MPV 8.2 01/10/2013 DIFFTYPE AUTOMATED 01/10/2013 CMP: Lab Results Component Value Date NA 135 01/10/2013 K 4.4 01/10/2013 CL 101 01/10/2013 CO2 33* 01/10/2013 ANIONGAP 5 01/10/2013 GLUF 106* 01/10/2013 BUN 13 01/10/2013 CREATININE 0.55 01/10/2013 BCR 24 01/10/2013 CA 8.1* 01/10/2013 PROT 5.3* 01/08/2013 ALB 3.2* 01/08/2013 GLOB 2.4 01/06/2013 BILITOT 0.3 01/08/2013 ALP 42 01/08/2013 AST 42 01/08/2013 ALT 34 01/08/2013 EGFR >60 01/10/2013 PROBLEM LIST Principal Problem: *Transaminitis Active Problems: Fracture of rib with flail chest SIRS (systemic inflammatory response syndrome) Hypotension, unspecified Chest pain, unspecified Hemopneumothorax on right Sacral fracture Blunt chest trauma Acute posthemorrhagic anemia ASSESSMENT & PLAN D/C chest tube Ambulate Encourage IS Probably home 01/11/13 Disposition: Code Status: Full Code SUZANNE LEON MD 01/10/2013 Christina Foy MD - 01/10/2013 8:35 AM PDTFormatting of this note might be different from the marc ginal. Progress Notes by Elza Sue MD at 01/10/13 0889 Author: Elza Sue MD Service: (none) Author Type: Physician Filed: 01/10/13 3083 Date of Service: 01/10/13834 Status: Signed Electrical Engineering Draftsperson: Elza Sue MD (Physician) Related Notes: Original Note by Elza Sue MD (Physician) filed at 01/10/13 0860 [facility] Service: General Surgery Progress Note Hospital Day: LOS: 4 days Post-Op Day: * No surgery found * SUBJECTIVE Patient Summary: Events Overnight: The patient complains of quite a bit of nausea. Appetite is poor. She is also quite constipated. She was given some laxatives yesterday which did not provide any relief. She does not have any shortness of breath, cough, hemoptysis. She has not had a chest x-ray for about 48 hours. Scheduled Medications docusate sodium 100 mg Oral BID Or docusate 100 mg Per OG Tube BID insulin aspart 0-3 Units Subcutaneous TID AC insulin aspart 0-3 Units Subcutaneous Nightly insulin aspart 1 Units Subcutaneous TID AC insulin glargine 6 Units Subcutaneous Once insulin glargine 6 Units Subcutaneous Nightly metoclopramide 10 mg Intravenous Q6H polyethylene glycol 17 g Oral Daily multivitamin & minerals w iron/FA 1 tablet Oral Daily with breakfast DISCONTD: HYDROcodone-acetaminophen 1 tablet Oral Q4H DISCONTD: omeprazole 20 mg Oral QAM AC DISCONTD: pantoprazole 40 mg Intravenous QAM AC Continuous Infusions dextrose 5 % and 0.45 % NaCl 30 mL/hr at 01/08/13 1528 sodium chloride 30 mL/hr at 01/08/13 1529 DISCONTD: DOPamine in D5W 1.6 mg/mL Stopped (01/08/13 1323) DISCONTD: norepinephrine in D5W 64 mcg/mL Stopped (01/08/132024) PRN Medications acetaminophen, acetaminophen, dextrose, dextrose, dextrose, lip moisturizer, magnesium hydr oxide, nystatin, nystatin, ondansetron, ondansetron, oxyCODONE-acetaminophen, oxyCODONE-acet aminophen, potassium chloride, potassium chloride, potassium chloride, potassium chloride, p otassium chloride, potassium chloride, promethazine, white petrolatum, DISCONTD: dextrose, D ISCONTD: dextrose, DISCONTD: HYDROmorphone, DISCONTD: magnesium sulfate DISCONTD: magnesium sulfate, DISCONTD: magnesium sulfate, DISCONTD: sodium phosphate IVPB 1 5 mmol, DISCONTD: sodium phosphate IVPB 30 mmol OBJECTIVE Vital Signs: BP 175/86 | Pulse 83 | Temp 97.4 F (36.3 C) (Oral) | Resp 16 | Ht 1.753 m (5' 9.02") | Wt 60.5 kg (133 lb 6.1 oz) | BMI 19.69 kg/m2 | SpO2 98% | ? No Temp: [97.4 F (36.3 C)-98.2 F (36.8 C)] 97.4 F (36.3 C) (01/11 448) BP: (129-185)/(63-86) 175/86 mmHg (01/11 448) Heart Rate: [70-83] 83 (01/11 448) Resp: [16] 16 (01/11 448) SpO2: [98 %-100 %] 98 % (01/11 448) Weight: [60.5 kg (133 lb 6.1 oz)] 60.5 kg (133 lb 6.1 oz) (01/11 448) Physical Exam Pulmonary/Chest: Effort normal and breath sounds normal. No respiratory distress. She has n o wheezes. She has no rales. She exhibits tenderness. DATA CBC: Lab Results Component Value Date WBC 6.1 01/10/2013 RBC 2.95* 01/10/2013 HGB 8.9* 01/10/2013 HCT 26.8* 01/10/2013 MCV 91.0 01/10/2013 MCH 30.2 01/10/2013 MCHC 33.2 01/10/2013 RDW 41.1 01/10/2013 PLT 112* 01/10/2013 MPV 8.2 01/10/2013 DIFFTYPE AUTOMATED 01/10/2013 CMP: Lab Results Component Value Date NA 135 01/10/2013 K 4.4 01/10/2013 CL 101 01/10/2013 CO2 33* 01/10/2013 ANIONGAP 5 01/10/2013 GLUF 106* 01/10/2013 BUN 13 01/10/2013 CREATININE 0.55 01/10/2013 BCR 24 01/10/2013 CA 8.1* 01/10/2013 PROT 5.3* 01/08/2013 ALB 3.2* 01/08/2013 GLOB 2.4 01/06/2013 BILITOT 0.3 01/08/2013 ALP 42 01/08/2013 AST 42 01/08/2013 ALT 34 01/08/2013 EGFR >60 01/10/2013 PROBLEM LIST Principal Problem: *Transaminitis Active Problems: Fracture of rib with flail chest SIRS (systemic inflammatory response syndrome) Hypotension, unspecified Chest pain, unspecified Hemopneumothorax on right Sacral fracture Blunt chest trauma Acute posthemorrhagic anemia ASSESSMENT & PLAN Plan today is to obtain a followup chest x-ray. Continue with chest tube drainage. We are g oing to switch her narcotics to Percocet and see if that will produce less nausea and begin treating her nausea with some Phenergan and see if that helps. In addition, chest tube manag ement ultimately is deferred to Dr. Leon. Disposition: Code Status: Full Code ELZA SUE MD 01/10/2013 Ashkan Wisdom ARNP - 01/09/2013 12:08 PM PDTFormatting of this note might be different from the origi nal. Progress Notes by DANAE Mercedes at 01/09/13 1208 Author: DANAE Mercedes Service: Bonded Structures Repairer Author Type: Bonded Structures Repairer Filed: 01/09/13 1231 Date of Service: 01/09/13 1208 Status: Signed Electrical Engineering Draftsperson: DANAE Mercedes (Bonded Structures Repairer) [facility]: Bonded Structures Repairer Progress Note Kassi Maxwell 72 y.o. Hospital Day: LOS: 3 days Post-Op Day: * No surgery found * Treatment Team: Consulting Physician: Elza Sue MD Consulting Physician: Suzanne Leon MD Consulting Physician: Jeffrey Martinez MD Consulting Physician: Ronal Shah MD Admitting Provider: Elza Sue MD SUBJECTIVE Patient Summary: The patient is a 72 y.o. female with significant past medical history of Htn, osteoporosis who presents with From [facility] in [place] s/p blunt chest trauma to the chest kicked by her own horse while she was trying to give it th eWNV vaccine. No LOC but ems michael the rto the ED where she was hemodynamically stable and then sbp woul d drop top the 80's with pain meds so she received 4 liters crystalloids. 2 liters nasal can riddhi, no malignant rhythm. Ct : multiple comminuted and depressed right rib fractures tilting the sternum, no clear cu t sternal fracture, substernal hematoma, small pericardial effusion, right ptx, right lung c ontusion, small pneumomediastinum, Right right hemothorax, left sacral fx, small amount of f luid in the left pelvis, likely blood per report. Ct spine neg for fx or malalignement Ct head neg for blood Sodium 140 k 4.1 Glucose 126 Bun 30 Creat1.06 Alcohol<10, amylase 43 Wbc 8 hct 40 plt 251 a t 16:15 At 18:15 wbc 17 hct 31 plt 190 after 4 liters crysatalloids cpk 149 Tn ckmb 5.3 Index 3.6 hct at [facility] 29 plt 150 ecg at [facility]' 91 sr with qtc 479 with rbbb Repeat ecg at [facility]: 85 nsr with qtc 480 with rbbb, no previous ecg. She received a right chest tube with 300 cc of blood out , apparently 200 cc in our ed of f resh blood. Pt takes asa(to prevent strokes). She c/o chest pain when she breathes and low back pain mainly on the right and some chest d iscomfort overall, sy placed no hematuria macroscopically, mild nausea post fentanyl. Pt was in her usual state of health prior. Dr sue and armand (ortho) consulted as well as the icu team. ICU TIMELINE: 8-3:stat echo without tamponade, normal EF, no hypokinesis Events Overnight: Chest tube clamped this morning. Considered chest binder but feel th at it will decrease pts ability to breathe and expectorate secretions with flail segment. PT to eval and ambulate. Dr. Ella mo with transferring pt to surgical floor to his service. Dr. Edward mo with transfer as well. PAST MEDICAL HISTORY: Past Medical History Diagnosis Date Hypertension Osteoporosis Rheumatoid arthritis PAST SURGICAL HISTORY: Past Surgical History Procedure Date Unlisted procedure arthroscopy Hysterectomy Back surgery Colonoscopy MEDICATION ALLERGIES: Allergies Allergen Reactions Codeine Nausea and Vomiting Hydrocodone Nausea and Vomiting Morphine Nausea and Vomiting Propoxyphene Nausea and Vomiting MEDICATIONS PRIOR TO ADMISSION: Prescriptions prior to admission Medication Sig Dispense Refill aspirin 81 MG EC tablet Take 81 mg by mouth daily with breakfast. Abatacept (ORENCIA IV) Inject into the vein every 28 days. 2 vials every 4 weeks for R A alendronate (FOSAMAX) 70 MG tablet Take 70 mg by mouth every 7 days. Take in the mornin g with a full glass of water, on an empty stomach, and do not take anything else by mouth or lie down for the next 30 min. jfxizjlkei-yhhmtfi-zjohfkzp (FIORINAL) 50-325-40 MG per tablet Take 2 tablets by mouth daily as needed. calcium carbonate (TUMS EX) 750 MG chewable tablet Take 2 tablets by mouth daily. folic acid (FOLVITE) 1 MG tablet Take 1 mg by mouth daily. HYDROcodone-acetaminophen (NORCO) 5-325 MG per tablet Take 1 tablet by mouth every 6 (s ix) hours as needed. ibuprofen (ADVIL,MOTRIN) 200 MG tablet Take 200 mg by mouth every 6 (six) hours as need ed. lisinopril (PRINIVIL,ZESTRIL) 30 MG tablet Take 30 mg by mouth daily. Indications: High Blood Pressure meloxicam (MOBIC) 15 MG tablet Take 15 mg by mouth daily. omeprazole (PRILOSEC) 20 MG capsule Take 20 mg by mouth every morning before breakfast. sumatriptan (IMITREX) 100 MG tablet Take 100 mg by mouth as needed. 2 tabs in 24 hrs topiramate (TOPAMAX) 100 MG tablet Take 100 mg by mouth 2 (two) times daily. UNKNOWN TO PATIENT as needed. OTC stool softner zolpidem (AMBIEN) 10 MG tablet Take 10 mg by mouth nightly as needed. Scheduled Medications docusate sodium 100 mg Oral BID Or docusate 100 mg Per OG Tube BID HYDROcodone-acetaminophen 1 tablet Oral Q4H insulin aspart 0-3 Units Subcutaneous TID AC insulin aspart 0-3 Units Subcutaneous Nightly insulin aspart 1 Units Subcutaneous TID AC insulin glargine 6 Units Subcutaneous Once insulin glargine 6 Units Subcutaneous Nightly metoclopramide 10 mg Intravenous Q6H omeprazole 20 mg Oral QAM AC Or pantoprazole 40 mg Intravenous QAM AC polyethylene glycol 17 g Oral Daily multivitamin & minerals w iron/FA 1 tablet Oral Daily with breakfast DISCONTD: insulin regular 1 unit/mL 1-50 Units Intravenous Bolus from Bag Continuous Infusions dextrose 5 % and 0.45 % NaCl 30 mL/hr at 01/08/13 1528 DOPamine in D5W 1.6 mg/mL Stopped (01/08/13 132) norepinephrine in D5W 64 mcg/mL Stopped (01/08/132024) sodium chloride 30 mL/hr at 01/08/13 1529 DISCONTD: insulin regular 1 unit/mL Stopped (01/09/13 0210) PRN Medications acetaminophen, acetaminophen, dextrose, dextrose, dextrose, HYDROmorphone, lip moisturizer, magnesium sulfate, magnesium sulfate, magnesium sulfate, nystatin, nystatin, ondansetron, o ndansetron, potassium chloride, potassium chloride, potassium chloride, potassium chloride, potassium chloride, potassium chloride, sodium phosphate IVPB 15 mmol, sodium phosphate IVPB 30 mmol, white petrolatum, DISCONTD: dextrose, DISCONTD: dextrose OBJECTIVE Vital Signs: BP 149/72 | Pulse 73 | Temp 98 F (36.7 C) (Oral) | Resp 16 | Ht 1.753 m (5' 9.02") | Wt 62.3 kg (137 lb 5.6 oz) | BMI 20.27 kg/m2 | SpO2 100% | ? No Temp: [97.6 F (36.4 C)-98.6 F (37 C)] 98 F (36.7 C) (01/10 1140) BP: (117-156)/(56-83) 149/72 mmHg (01/10 1200) Heart Rate: [68-79] 73 (01/10 1200) Resp: [11-31] 16 (01/10 1140) SpO2: [88 %-100 %] 100 % (08/06 1200) Weight: [62.3 kg (137 lb 5.6 oz)] 62.3 kg (137 lb 5.6 oz) (01/09 07) EXAM GEN: Awake, alert, oriented x3, in mild pain but able to take acceptably deep breaths. Enco uraged and taught pillow splinting. NEURO: PERRLA, EOMI, no facial asymmetry, speech normal, moves all extremities well GCS:15 HEENT: sclerae clear, nonicteric, oral mmm, pink, no exudates NECK: supple, trachea midline, no thyroidmegaly HEART: RRR, no murmur, rub or gallop LUNGS: decreased bs on the right, with crackles, no w, chest tube in place draining serous drainage. Chest tube insertion site ok ABD: soft, nondistended, nontender to palpation, no masses, no hepatosplenomegaly EXTR: no edema, clubbing or cyanosis SKIN: warm, dry, no rash or mottling; no e/o skin breakdown over the occiput, scapulae, elb ows, sacrum or heels reported. DATA Lab 01/09/13 0304 01/08/13 0333 01/07/13 1211 01/07/13 0540 WBC 5.3 9.8 -- 13.1* HGB 8.5* 8.7* 9.1* -- HCT 25.6* 26.1* 28.1* -- PLT 89* 128* -- 142* Lab 01/09/13 0304 01/08/13 1305 01/08/13 0333 01/07/13 1447 NA 141 -- 136 144* K 4.0 4.4 4.4 -- CL 107 -- 110* 113* CO2 25 -- 24 17* BUN 18 -- 30* 29* CREATININE 0.75 -- 0.93 1.39* LABGLOM -- -- -- -- GLUCOSE -- -- -- -- CALCIUM -- -- -- -- IMAGING KASSI A HANS XR CHEST 1 VIEW 01/09/2013 5:30 AM HISTORY: Tube placement. TECHNIQUE: One view chest. FINDINGS: Compared with January 08, 2013. The small right apical pneumothorax is no longer visualized. The right pleural drain remains in place. Central line is unchanged in position. Mild bibasi lar atelectasis is unchanged. No significant pleural effusion is noted. IMPRESSION: 1. Resolving small right apical pneumothorax with pleural drain in place. 2. Persistent mild bibasilar atelectasis. LEM LIST Principal Problem: *Transaminitis Active Problems: Fracture of rib with flail chest SIRS (systemic inflammatory response syndrome) Hypotension, unspecified Chest pain, unspecified Hemopneumothorax on right Sacral fracture Blunt chest trauma Acute posthemorrhagic anemia ASSESSMENT & PLAN NEURO: Non focal exam, ct spine negative for fracture, no collar CARDIOVASCULAR: Blunt chest trauma:possible myocardial contusion with the rbbb and trop rise and small dillan cardial effusion on the ct chest, stat echo without tamponade or hypominesis and good EF, dr edward garibay.. No clinical signs of tamponade, Small pneumomediastinum:follow Hypotension intiially sec to narcotic infusion probably in the setting of hypovolemia(not s hock) that responded to ivf. Will wean Dopamine off with levophed to keep MAP > 65. PULMONARY: pulmonary contusion with right hemopneumothorax/flail chest: chesttube in place clamped wit h serous drainage, no OR indication for now. PATHOLOGY TEACHER dialudid dc'd and now switched to norco an d dialudid prn. GI: advance, no e/o intraabdominal process, Transaminitis:follow, abd exam benign, RENAL: No macroscopic hematuria, no e/o rhabdo, uo dropped resoponded to bolus of LR INFECTIOUS DISEASE: No e/o infection HEME: hct stabilized . Daily CBC. ENDOCRINE: endotool MUSCULOSKELETAL: Right sacral fracture: Per designated pelvic x-rays, there is not fx of the pelvis. See abo ve results. PROPHYLAXIS: Stress ulcer prophylaxis-gerd, omeprazole(home) DVT prophylaxis-no heparin sec to hemothorax VAP: chlorhexadine oral care and HOB > 30 degrees Disposition:icu care as above, family updated at bedside. Code Status: Full Code *Please bill 30 minutes of critical care time spent evaluating the patient, reviewing the d macario and formulating a plan exclusive of all other procedures. DANAE MERCEDES 01/09/2013 12:08 PM Suzanne Marquis MD - 01/09/2013 11:50 AM PDTFormatting of this note might be different from the orig inal. Progress Notes by Suzanne Leon MD at 01/09/13 1150 Author: Suzanne Leon MD Service: (none) Author Type: Physician Filed: 01/09/13 8823 Date of Service: 01/09/131149 Status: Signed Electrical Engineering Draftsperson: Suzanne Leon MD (Physician) [facility]: Cardiothoracic Surgery Progress Note Hospital Day: LOS: 3 days Post-Op Day: * No surgery found * SUBJECTIVE Patient Summary: Events Overnight: Good pain control Oxygenation is satisfactory Sero sanguinous CT output CXR satisfactory Falling Hct concering Scheduled Medications docusate sodium 100 mg Oral BID Or docusate 100 mg Per OG Tube BID HYDROcodone-acetaminophen 1 tablet Oral Q4H insulin aspart 0-3 Units Subcutaneous TID AC insulin aspart 0-3 Units Subcutaneous Nightly insulin aspart 1 Units Subcutaneous TID AC insulin glargine 6 Units Subcutaneous Once insulin glargine 6 Units Subcutaneous Nightly metoclopramide 10 mg Intravenous Q6H omeprazole 20 mg Oral QAM AC Or pantoprazole 40 mg Intravenous QAM AC polyethylene glycol 17 g Oral Daily multivitamin & minerals w iron/FA 1 tablet Oral Daily with breakfast DISCONTD: insulin regular 1 unit/mL 1-50 Units Intravenous Bolus from Bag Continuous Infusions dextrose 5 % and 0.45 % NaCl 30 mL/hr at 01/08/13 1528 DOPamine in D5W 1.6 mg/mL Stopped (01/08/13 1323) norepinephrine in D5W 64 mcg/mL Stopped (01/08/13 202) sodium chloride 30 mL/hr at 01/08/13 1529 DISCONTD: insulin regular 1 unit/mL Stopped (01/09/13 0210) PRN Medications acetaminophen, acetaminophen, dextrose, dextrose, dextrose, HYDROmorphone, lip moisturizer, magnesium sulfate, magnesium sulfate, magnesium sulfate, nystatin, nystatin, ondansetron, o ndansetron, potassium chloride, potassium chloride, potassium chloride, potassium chloride, potassium chloride, potassium chloride, sodium phosphate IVPB 15 mmol, sodium phosphate IVPB 30 mmol, white petrolatum, DISCONTD: dextrose, DISCONTD: dextrose OBJECTIVE Vital Signs: BP 137/69 | Pulse 73 | Temp 98 F (36.7 C) (Oral) | Resp 16 | Ht 1.753 m (5' 9.02") | Wt 62.3 kg (137 lb 5.6 oz) | BMI 20.27 kg/m2 | SpO2 100% | ? No Temp: [96.6 F (35.9 C)-98.6 F (37 C)] 98 F (36.7 C) (01/10 1140) BP: (117-156)/(56-83) 137/69 mmHg (01/10 1140) Heart Rate: [68-79] 73 (01/10 1140) Resp: [11-31] 16 (01/10 1140) SpO2: [88 %-100 %] 100 % (01/10 1140) Weight: [62.3 kg (137 lb 5.6 oz)] 62.3 kg (137 lb 5.6 oz) (01/09 730) Physical Exam Vitals reviewed. Constitutional: She is oriented to person, place, and time. She appears well-developed and well-nourished. HENT: Head: Normocephalic. Neck: No JVD present. Cardiovascular: Normal rate, regular rhythm and normal heart sounds. Pulmonary/Chest: Breath sounds normal. Abdominal: Soft. Bowel sounds are normal. Musculoskeletal: Normal range of motion. She exhibits no edema. Neurological: She is alert and oriented to person, place, and time. DATA CBC: Lab Results Component Value Date WBC 5.3 01/09/2013 RBC 2.84* 01/09/2013 HGB 8.5* 01/09/2013 HCT 25.6* 01/09/2013 MCV 90.2 01/09/2013 MCH 30.0 01/09/2013 MCHC 33.3 01/09/2013 RDW 43.3 01/09/2013 PLT 89* 01/09/2013 MPV 8.1 01/09/2013 DIFFTYPE AUTOMATED 01/09/2013 CMP: Lab Results Component Value Date NA 141 01/09/2013 K 4.0 01/09/2013 CL 107 01/09/2013 CO2 25 01/09/2013 ANIONGAP 14 01/09/2013 GLUF 125* 01/09/2013 BUN 18 01/09/2013 CREATININE 0.75 01/09/2013 BCR 24 01/09/2013 CA 7.4* 01/09/2013 PROT 5.3* 01/08/2013 ALB 3.2* 01/08/2013 GLOB 2.4 01/06/2013 BILITOT 0.3 01/08/2013 ALP 42 01/08/2013 AST 42 01/08/2013 ALT 34 01/08/2013 EGFR >60 01/09/2013 PROBLEM LIST Principal Problem: *Transaminitis Active Problems: Fracture of rib with flail chest SIRS (systemic inflammatory response syndrome) Hypotension, unspecified Chest pain, unspecified Hemopneumothorax on right Sacral fracture Blunt chest trauma Acute posthemorrhagic anemia ASSESSMENT & PLAN Clamp chest tube Ambulate Encourage IS Stool for occult blood Transfer out of ICU CXR am Will continue to follow Probably home in next 24-48 hrs Disposition: Code Status: Full Code SUZANNE LEON MD 01/09/2013 onversio n Transaction, Provider Unknown - 01/09/2013 11:11 AM PDTFormatting of this note might be di fferent from the original. Case Management by LEEANNA Bernardo at 01/09/13 1111 Author: LEEANNA Bernardo Service: (none) Author Type: Public School Teacher Filed: 01/09/13 1617 Date of Service: 01/09/13 1111 Status: Addendum Electrical Engineering Draftsperson: LEEANNA Bernardo (Public School Teacher) Related Notes: Original Note by LEEANNA Bernardo (Public School Teacher) filed at 01/09/13 9698 Pt is a 72yo MWF admitted with rib fx's, pain in tail bone and pelvis s/p kick from her hor se into the chest. Pt lives with her disabled in [place]. 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 She states that he mostly sits in a recliner every day. He goes to dialysis 3x/week as well. He does not drive. Pt's son Matt has been caring for pt's and bringing him to dialysis. is unsure how long son can care for his fat er and not work. PT notes are preliminarily recommending IPR. I explained IPR options. Pt st ates that she lives [place] min from [place] and 1 1/2 hr from area so prefers to go to [facility] if she needs rehab. Explained SN[facility] as well [facility]. Pt is not interested in going to [facility] or [facility]. If she needs a SNF she is interested in a [facility]. I will fax clinical to [facility], [facility], Bela at the [facility] and [facility] in as back up plan for rehab. CM t o follow. - Keshav- [phone] Son - Matt- [phone] 1430: Received return call from Princess at [facility] ([phone]). Pt has been accepted a nd they have a bed. Spoke with Priscilla at [facility] ([phone]). She is having Dr. Collins fuentes look over info to see if pt is a candidate for their IPR. Received phone message from Trinidad puckett with [facility] ([phone]) indicating that they had received the faxed info. Rece ived return call from Eric at [facility] at [facility] ([phone]) indicating that they have accepted pt and have a bed available. 1615: Received t/c from Yin at [facility]. They have accpeted pt and have a private ro om available. Emailed Sen Laura MSW and Dai Connelly MSW to notify of this update and pro vide this info to pt and her family. Elza Foy MD - 01/09/2013 9:50 AM PDT Progress Notes by Elza Sue MD at 01/09/13 4038 Author: Elza Sue MD Service: (none) Author Type: Physician Filed: 01/10/13 6973 Date of Service: 01/09/13 8059 Status: Signed Electrical Engineering Draftsperson: Elza Sue MD (Physician) Related Notes: Original Note by Elza Sue MD (Physician) filed at 01/09/13 9039 [facility]: General Surgery Progress Note Hospital Day: LOS: 3 days Post-Op Day: * No surgery found * SUBJECTIVE Patient Summary: Events Overnight: The patient remains hemodynamically stable. She is now off pressor s. Her chest tube is now off suction. She remains without air leak. Chest x-ray is adequatel y expanded, without hemopneumothorax. Her pain is improved. Her appetite is poor, but she is taking oral nutrition with some nausea. Scheduled Medications docusate sodium 100 mg Oral BID Or docusate 100 mg Per OG Tube BID HYDROcodone-acetaminophen 1 tablet Oral Q4H insulin aspart 0-3 Units Subcutaneous TID AC insulin aspart 0-3 Units Subcutaneous Nightly insulin aspart 1 Units Subcutaneous TID AC insulin glargine 6 Units Subcutaneous Once insulin glargine 6 Units Subcutaneous Nightly metoclopramide 10 mg Intravenous Q6H omeprazole 20 mg Oral QAM AC Or pantoprazole 40 mg Intravenous QAM AC polyethylene glycol 17 g Oral Daily multivitamin & minerals w iron/FA 1 tablet Oral Daily with breakfast DISCONTD: insulin regular 1 unit/mL 1-50 Units Intravenous Bolus from Bag Continuous Infusions dextrose 5 % and 0.45 % NaCl 30 mL/hr at 01/08/13 1528 DOPamine in D5W 1.6 mg/mL Stopped (01/08/13 1323) norepinephrine in D5W 64 mcg/mL Stopped (01/08/13 2025) sodium chloride 30 mL/hr at 01/08/13 1529 DISCONTD: insulin regular 1 unit/mL Stopped (01/09/13 0210) PRN Medications acetaminophen, acetaminophen, dextrose, dextrose, dextrose, dextrose, dextrose, HYDROmorpho ne, lip moisturizer, magnesium sulfate, magnesium sulfate, magnesium sulfate, nystatin, nyst atin, ondansetron, ondansetron, potassium chloride, potassium chloride, potassium chloride, potassium chloride, potassium chloride, potassium chloride, sodium phosphate IVPB 15 mmol, s odium phosphate IVPB 30 mmol, white petrolatum, DISCONTD: HYDROcodone-acetaminophen DISCONTD: HYDROmorphone OBJECTIVE Vital Signs: BP 136/66 | Pulse 71 | Temp 97.6 F (36.4 C) (Oral) | Resp 16 | Ht 1.753 m (5' 9.02") | Wt 62.3 kg (137 lb 5.6 oz) | BMI 20.27 kg/m2 | SpO2 100% | ? No Temp: [96.6 F (35.9 C)-98.6 F (37 C)] 97.6 F (36.4 C) (01/09 735) BP: (117-149)/(56-83) 136/66 mmHg (01/09 900) Heart Rate: [68-78] 71 (01/09 900) Resp: [8-31] 16 (01/09 735) SpO2: [88 %-100 %] 100 % (01/09 900) Weight: [62.3 kg (137 lb 5.6 oz)] 62.3 kg (137 lb 5.6 oz) (01/09 730) Physical Exam Pulmonary/Chest: Effort normal and breath sounds normal. No respiratory distress. She has n o wheezes. She has no rales. She exhibits no tenderness. DATA CBC: Lab Results Component Value Date WBC 5.3 01/09/2013 RBC 2.84* 01/09/2013 HGB 8.5* 01/09/2013 HCT 25.6* 01/09/2013 MCV 90.2 01/09/2013 MCH 30.0 01/09/2013 MCHC 33.3 01/09/2013 RDW 43.3 01/09/2013 PLT 89* 01/09/2013 MPV 8.1 01/09/2013 DIFFTYPE AUTOMATED 01/09/2013 CMP: Lab Results Component Value Date NA 141 01/09/2013 K 4.0 01/09/2013 CL 107 01/09/2013 CO2 25 01/09/2013 ANIONGAP 14 01/09/2013 GLUF 125* 01/09/2013 BUN 18 01/09/2013 CREATININE 0.75 01/09/2013 BCR 24 01/09/2013 CA 7.4* 01/09/2013 PROT 5.3* 01/08/2013 ALB 3.2* 01/08/2013 GLOB 2.4 01/06/2013 BILITOT 0.3 01/08/2013 ALP 42 01/08/2013 AST 42 01/08/2013 ALT 34 01/08/2013 EGFR >60 01/09/2013 PROBLEM LIST Principal Problem: *Transaminitis Active Problems: Fracture of rib with flail chest SIRS (systemic inflammatory response syndrome) Hypotension, unspecified Chest pain, unspecified Hemopneumothorax on right Sacral fracture Blunt chest trauma Acute posthemorrhagic anemia ASSESSMENT & PLAN Plan is to transfer her out of the ICU to the [facility]. Continue pain control and chest physiot herapy. Once ambulatory and on oral opiates, the patient will be a suitable candidate for di scharge. I expect in 48 hours that would be appropriate. Total face to face consultation time with this patient was 20 minutes, greater than 50% was spent in consultation. Disposition: Code Status: Full Code ELZA SUE MD 01/09/2013 onversion Transact ion, Provider Unknown - 01/08/2013 2:15 PM PDTFormatting of this note might be different fr om the original. Progress Notes by Roscoe Maldonado PT at 01/08/13 1415 Author: Roscoe Maldonado PT Service: (none) Author Type: Physical Therapist Filed: 01/08/13 1642 Date of Service: 01/08/13 1415 Status: Signed Electrical Engineering Draftsperson: Roscoe Maldonado PT (Physical Therapist) 01/08/13 1415 PT Last Visit PT Received On 01/08/13 Reason for Treatment Other (comment) (multi-trauma, kicked by horse in sternum) Requires PT Follow Up Awaiting tx order PT Eval/Reassessment Date 01/08/13 Assistance Required 2 person Precautions Other Precautions (Has chest tubes in place, taught sternal bracing for comfort) Plan Treatment/Interventions Transfer training;Gait training PT Frequency Once per day;5-7x/wk Care Duration (# of days) 7 # of days Home Environment Type of Home Home one story Home Exterior Layout 4-6 steps (6) Home Interior Layout Lives on main level with bedroom/bathroom Home Equipment None Recommendation Recommendations Continue acute care therapy (TBD, limited by pain, may need IPR ) Equipment Recommended (TBD) Prior Function Level of [place] Independent with functional mobility;Independent with ADLs;Independe nt with IADLs Lives With Spouse (Pt.'s spouse is disabled, she helps him at home.) ADL Assistance Independent Home ADL's Independent RUE Assessment RUE Assessment WFL (however limited mvmnt throughout d/t pain in sternum/ribs) LUE Assessment LUE Assessment WFL RLE Assessment RLE Assessment WFL LLE Assessment LLE Assessment WFL Cognition Overall Cognitive Status WFL Orientation Level Oriented Sensation Light Touch No apparent deficits Assessment of Patient Status Assessment of Patient Status Decreased functional mobility;Decreased ADL status;Pain Prognosis Should progress with skilled therapy intervention 01/08/13 1415 PT Last Visit PT Received On 01/08/13 Reason for Treatment Other (comment) (multi-trauma, kicked by horse in sternum) Requires PT Follow Up Awaiting tx order PT Eval/Reassessment Date 01/08/13 Assistance Required 2 person Precautions Other Precautions (Has chest tubes in place, taught sternal bracing for comfort) Other Comments Comments Pt. was admitted after being kicked in sternum and landing back on her tailbone/ba ckside. Pt. has stable pelvic fx. and is WBAT. Pt. has sternal/rib fx.'s and was educated in sternal bracing for comfort. Pt. is limited by pain with all movement, but demonstrates adequate WB'ing and strength. Stood and walk around bedside and sat up in chair w/ 2 person modA + 3rd person for management of lines. Pt. tolerated activity fair. Pt. is on 3L w/ S pO2 96% Cognition Overall Cognitive Status WFL Orientation Level Oriented Bed Mobility Supine to Sit Max assist (BLEs OOB & trunk to upright);x 2 person Sit to Supine Max assist (BLEs into bed & trunk to lower);x 2 person Scooting Moderate assist;x 2 person Transfers Sit to/from Stand Moderate assist (to arise OR lower);Maximal assist (to arise AND lower);x 2 person Bed to/from Chair Moderate assist (to arise OR lower);Maximal assist (to arise AND lower);x 2 person Mobility Ambulation Assistance Moderate assist;X2 (x3) Maximal Ambulation Distance (feet) 8 Total Ambulation Distance (feet) 8 Distance limited by? Patient's ability;Therapist/staff discretion Pattern Decreased crow;Right swing foot doesn't pass stance foot;Left swing foot doesn't pass stance foot;Antalgic Assistive Device None (2 MOISTURE CONDITIONER OPERATOR from staff) Static Sitting Balance Static Sitting-Balance Support Feet supported Static Sitting-Level of Assistance Attains midline;Maintains midline;Standby assist Static Standing Balance Static Standing-Balance Support Trunk support Static Standing-Level of Assistance Moderate assist;Attains midline;Maintains midline Activity Tolerance Activity Tolerance Treatment limited secondary to medical complications Nurse Made Aware yes Plan Treatment/Interventions Transfer training;Gait training PT Frequency Once per day;5-7x/wk Care Duration (# of days) 7 # of days Recommendation Recommendations Continue acute care therapy (TBD, limited by pain, may need IPR ) Equipment Recommended (TBD) onnie Brenner ARNP - 01/08/2013 10:58 AM PDTFormatting of this note might be different f rom the original. Progress Notes by DANAE Mercedes at 01/08/13 1054 Author: DANAE Mercedes Service: Bonded Structures Repairer Author Type: Bonded Structures Repairer Filed: 01/08/13 1114 Date of Service: 01/08/131057 Status: Signed Electrical Engineering Draftsperson: DANAE Mercedes (Bonded Structures Repairer) [facility]: Bonded Structures Repairer Progress Note Kassi Maxwell 72 y.o. Hospital Day: LOS: 2 days Post-Op Day: * No surgery found * Treatment Team: Consulting Physician: Elza Sue MD Consulting Physician: Suzanne Leon MD Consulting Physician: Jeffrey Martinez MD Consulting Physician: Ronal Shah MD Admitting Provider: Elza Sue MD SUBJECTIVE Patient Summary: The patient is a 72 y.o. female with significant past medical history of Htn, osteoporosis who presents with From [facility] in [place] s/p blunt chest trauma to the chest kicked by her own horse while she was trying to give it th eWNV vaccine. No LOC but ems michael the rto the ED where she was hemodynamically stable and then sbp woul d drop top the 80's with pain meds so she received 4 liters crystalloids. 2 liters nasal can riddhi, no malignant rhythm. Ct : multiple comminuted and depressed right rib fractures tilting the sternum, no clear cu t sternal fracture, substernal hematoma, small pericardial effusion, right ptx, right lung c ontusion, small pneumomediastinum, Right right hemothorax, left sacral fx, small amount of f luid in the left pelvis, likely blood per report. Ct spine neg for fx or malalignement Ct head neg for blood Sodium 140 k 4.1 Glucose 126 Bun 30 Creat1.06 Alcohol<10, amylase 43 Wbc 8 hct 40 plt 251 a t 16:15 At 18:15 wbc 17 hct 31 plt 190 after 4 liters crysatalloids cpk 149 Tn ckmb 5.3 Index 3.6 hct at [facility] 29 plt 150 ecg at [facility]' 91 sr with qtc 479 with rbbb Repeat ecg at [facility]: 85 nsr with qtc 480 with rbbb, no previous ecg. She received a right chest tube with 300 cc of blood out , apparently 200 cc in our ed of f resh blood. Pt takes asa(to prevent strokes). She c/o chest pain when she breathes and low back pain mainly on the right and some chest d iscomfort overall, sy placed no hematuria macroscopically, mild nausea post fentanyl. Pt was in her usual state of health prior. Dr sue and armand (ortho) consulted as well as the icu team. ICU TIMELINE: 01-06:stat echo without tamponade, normal EF, no hypokinesis Events Overnight: 60 ml of chest tube output just this morning, teaching done at to im portance of IS and pillow splinting of chest with coughing and moving. Considered chest bind er but feel that it will decrease pts ability to breathe and expectorate secretions with fla il segment. PT to eval and ambulate. PAST MEDICAL HISTORY: Past Medical History Diagnosis Date Hypertension Osteoporosis Rheumatoid arthritis PAST SURGICAL HISTORY: Past Surgical History Procedure Date Unlisted procedure arthroscopy Hysterectomy Back surgery Colonoscopy MEDICATION ALLERGIES: Allergies Allergen Reactions Codeine Nausea and Vomiting Hydrocodone Nausea and Vomiting Morphine Nausea and Vomiting Propoxyphene Nausea and Vomiting MEDICATIONS PRIOR TO ADMISSION: Prescriptions prior to admission Medication Sig Dispense Refill aspirin 81 MG EC tablet Take 81 mg by mouth daily with breakfast. Abatacept (ORENCIA IV) Inject into the vein every 28 days. 2 vials every 4 weeks for R A alendronate (FOSAMAX) 70 MG tablet Take 70 mg by mouth every 7 days. Take in the mornin g with a full glass of water, on an empty stomach, and do not take anything else by mouth or lie down for the next 30 min. ieddkeucpv-inveinm-haygmqpd (FIORINAL) 50-325-40 MG per tablet Take 2 tablets by mouth daily as needed. calcium carbonate (TUMS EX) 750 MG chewable tablet Take 2 tablets by mouth daily. folic acid (FOLVITE) 1 MG tablet Take 1 mg by mouth daily. HYDROcodone-acetaminophen (NORCO) 5-325 MG per tablet Take 1 tablet by mouth every 6 (s ix) hours as needed. ibuprofen (ADVIL,MOTRIN) 200 MG tablet Take 200 mg by mouth every 6 (six) hours as need ed. lisinopril (PRINIVIL,ZESTRIL) 30 MG tablet Take 30 mg by mouth daily. Indications: High Blood Pressure meloxicam (MOBIC) 15 MG tablet Take 15 mg by mouth daily. omeprazole (PRILOSEC) 20 MG capsule Take 20 mg by mouth every morning before breakfast. sumatriptan (IMITREX) 100 MG tablet Take 100 mg by mouth as needed. 2 tabs in 24 hrs topiramate (TOPAMAX) 100 MG tablet Take 100 mg by mouth 2 (two) times daily. UNKNOWN TO PATIENT as needed. OTC stool softner zolpidem (AMBIEN) 10 MG tablet Take 10 mg by mouth nightly as needed. Scheduled Medications docusate sodium 100 mg Oral BID Or docusate 100 mg Per OG Tube BID HYDROcodone-acetaminophen 1 tablet Oral Q4H LORazepam 1 mg Intravenous Once metoclopramide 10 mg Intravenous Q6H omeprazole 20 mg Oral QAM AC Or pantoprazole 40 mg Intravenous QAM AC polyethylene glycol 17 g Oral Daily multivitamin & minerals w iron/FA 1 tablet Oral Daily with breakfast sodium chloride 1,000 mL Intravenous Once sodium chloride Continuous Infusions DOPamine in D5W 1.6 mg/mL 6 mcg/kg/min (01/08/13 1039) norepinephrine in D5W 64 mcg/mL 8 mcg/min (01/08/13 0641) DISCONTD: DOPamine in D5W 1.6 mg/mL 5 mcg/kg/min (01/07/13 2666) PRN Medications acetaminophen, acetaminophen, HYDROmorphone, lip moisturizer, magnesium sulfate, magnesium sulfate, magnesium sulfate, nystatin, nystatin, ondansetron, ondansetron, potassium chloride , potassium chloride, potassium chloride, potassium chloride, potassium chloride, potassium chloride, sodium phosphate IVPB 15 mmol, sodium phosphate IVPB 30 mmol, white petrolatum, DI SCONTD: HYDROcodone-acetaminophen, DISCONTD: HYDROmorphone OBJECTIVE Vital Signs: BP 127/52 | Pulse 69 | Temp 98.3 F (36.8 C) (Oral) | Resp 10 | Ht 1.753 m (5' 9.02") | Wt 51.256 kg (113 lb) | BMI 16.68 kg/m2 | SpO2 95% | ? No Temp: [97.6 F (36.4 C)-99.3 F (37.4 C)] 98.3 F (36.8 C) (01/08 915) BP: (91-132)/(50-64) 127/52 mmHg (01/08 853) Heart Rate: [61-104] 69 (01/08 915) Resp: [9-24] 10 (01/08 915) SpO2: [91 %-100 %] 95 % (01/08 915) EXAM GEN: Awake, alert, oriented x3, in mild pain but able to take acceptably deep breaths. Enco uraged and taught pillow splinting. NEURO: PERRLA, EOMI, no facial asymmetry, speech normal, moves all extremities well GCS:15 HEENT: sclerae clear, nonicteric, oral mmm, pink, no exudates NECK: supple, trachea midline, no thyroidmegaly HEART: RRR, no murmur, rub or gallop LUNGS: decreased bs on the right, with crackles, no w, chest tube in place draining blood Chest tube insertion site ok ABD: soft, nondistended, nontender to palpation, no masses, no hepatosplenomegaly EXTR: no edema, clubbing or cyanosis SKIN: warm, dry, no rash or mottling; no e/o skin breakdown over the occiput, scapulae, elb ows, sacrum or heels reported. DATA Lab 01/08/13 0333 01/07/13 1211 01/07/13 0806 01/07/13 0540 01/06/13 1930 WBC 9.8 -- -- 13.1* 15.6* HGB 8.7* 9.1* 9.3* -- -- HCT 26.1* 28.1* 28.8* -- -- PLT 128* -- -- 142* 150 Lab 01/08/13 0333 01/07/13 1447 01/07/13 1212 01/07/13 0540 NA 136 144* -- 141 K 4.4 4.6 4.6 -- CL 110* 113* -- 115* CO2 24 17* -- 20* BUN 30* 29* -- 29* CREATININE 0.93 1.39* -- 1.08* LABGLOM -- -- -- -- GLUCOSE -- -- -- -- CALCIUM -- -- -- -- IMAGING KASSI MAXWELL 1940 XR PELVIS 2 OR MORE VIEWS 01/07/2013 6:05 AM INDICATION: Trauma COMPARISON: None TECHNIQUE: Pelvis series, two views FINDINGS: There is no fracture of the inferior pubic ramus. There is no widening of the SI joint or symphysis pubis. The leak operator paraffin plant foramen appears intact. There is moderate generalized osteopenia. Severe degenerative disk disease of the lower lumbar spine is present. IMPRESSION: 1. No evidence of acute fracture of the pelvis. I MAXWELL XR CHEST 1 VIEW 01/08/2013 4:55 AM HISTORY: Follow-up pneumothorax. Chest pain. TECHNIQUE: One view of the chest. FINDINGS: Compared with January 07, 2013. The small right apical pneumothorax has decreased and now cindy sures 15 mm in thickness. The right pleural drain remains in place. Central line is unchange d in position. There is persistent mild bibasilar atelectasis, right greater than left. Hear t size appears normal. IMPRESSION: 1. Decreasing small right pneumothorax. No other significant change. LEM LIST Principal Problem: *Transaminitis Active Problems: Fracture of rib with flail chest SIRS (systemic inflammatory response syndrome) Hypotension, unspecified Chest pain, unspecified Hemopneumothorax on right Sacral fracture Blunt chest trauma Acute posthemorrhagic anemia ASSESSMENT & PLAN NEURO: Non focal exam, ct spine negative for fracture, no collar CARDIOVASCULAR: Blunt chest trauma:possible myocardial contusion with the rbbb and trop rise and small dillan cardial effusion on the ct chest, stat echo without tamponade or hypominesis and good EF, dr leon comanageing.. No clinical signs of tamponade, Small pneumomediastinum:follow Hypotension intiially sec to narcotic infusion probably in the setting of hypovolemia(not s hock) that responded to ivf. Will wean Dopamine off with levophed to keep MAP > 65. PULMONARY: pulmonary contusion with right hemopneumothorax/flail chest: chesttube in place,draining si gnificant amounts this am 01/08/13, comanaging w dr leon, no OR indication for now. Risk of intubation substantial sec to pain and contusion, PATHOLOGY TEACHER dialudid dc'd and now switched to nor co and dialudid prn. GI: advance, no e/o intraabdominal process, Transaminitis:follow, abd exam benign, RENAL: No macroscopic hematuria, no e/o rhabdo, uo dropped resoponded to bolus of LR INFECTIOUS DISEASE: No e/o infection HEME: hct stabilized . Daily CBC. ENDOCRINE: endotool MUSCULOSKELETAL: Right sacral fracture: Per designated pelvic x-rays, there is not fx of the pelvis. See abo ve results. PROPHYLAXIS: Stress ulcer prophylaxis-gerd, omeprazole(home) DVT prophylaxis-no heparin sec to hemothorax VAP: chlorhexadine oral care and HOB > 30 degrees Disposition:icu care as above, family updated at bedside. Code Status: Full Code *Please bill 45 minutes of critical care time spent evaluating the patient, reviewing the d macario and formulating a plan exclusive of all other procedures. DANAE MERCEDES 01/08/2013 10:58 AM Christina Huynh MD - 01/08/2013 10:46 AM PDTFormatting of this note might be different from the marc ginal. Progress Notes by Elza Sue MD at 01/08/13 1046 Author: Elza Sue MD Service: (none) Author Type: Physician Filed: 01/08/13 5230 Date of Service: 01/08/13 1046 Status: Signed Electrical Engineering Draftsperson: Elza Sue MD (Physician) Related Notes: Original Note by Elza Sue MD (Physician) filed at 01/08/13 1048 [facility]: General Surgery Progress Note Hospital Day: LOS: 2 days Post-Op Day: * No surgery found * SUBJECTIVE Patient Summary: Events Overnight: This patient continues to have minimal amounts of respiratory dist ress; however, she is short of breath. She denies any hemoptysis. Her pain seems to be well controlled. There are fluctuating blood pressures now requiring her to be on pressors as wel l as for urine output support. Chest tube output has dropped to about 170 over the last 12 t o 16 hours. There is no obvious air leak, although her respiratory effort and cough effort a re extremely poor. Scheduled Medications docusate sodium 100 mg Oral BID Or docusate 100 mg Per OG Tube BID LORazepam 1 mg Intravenous Once metoclopramide 10 mg Intravenous Q6H omeprazole 20 mg Oral QAM AC Or pantoprazole 40 mg Intravenous QAM AC multivitamin & minerals w iron/FA 1 tablet Oral Daily with breakfast sodium chloride 1,000 mL Intravenous Once sodium chloride Continuous Infusions DOPamine in D5W 1.6 mg/mL 6 mcg/kg/min (01/08/13 1039) norepinephrine in D5W 64 mcg/mL 8 mcg/min (01/08/13 0641) DISCONTD: DOPamine in D5W 1.6 mg/mL 5 mcg/kg/min (01/07/13 1725) PRN Medications acetaminophen, acetaminophen, HYDROcodone-acetaminophen, HYDROmorphone, lip moisturizer, ma gnesium sulfate, magnesium sulfate, magnesium sulfate, nystatin, nystatin, ondansetron, onda nsetron, potassium chloride, potassium chloride, potassium chloride, potassium chloride, pot assium chloride, potassium chloride, sodium phosphate IVPB 15 mmol, sodium phosphate IVPB 30 mmol, white petrolatum OBJECTIVE Vital Signs: BP 127/52 | Pulse 69 | Temp 98.3 F (36.8 C) (Oral) | Resp 10 | Ht 1.753 m (5' 9.02") | Wt 51.256 kg (113 lb) | BMI 16.68 kg/m2 | SpO2 95% | ? No Temp: [97.6 F (36.4 C)-99.3 F (37.4 C)] 98.3 F (36.8 C) (01/08 915) BP: (91-132)/(50-64) 127/52 mmHg (01/08 853) Heart Rate: [61-104] 69 (01/08 915) Resp: [9-24] 10 (01/08 915) SpO2: [91 %-100 %] 95 % (01/08 915) Physical Exam Pulmonary/Chest: Effort normal and breath sounds normal. No respiratory distress. She has n o wheezes. She has no rales. She exhibits tenderness. DATA CBC: Lab Results Component Value Date WBC 9.8 01/08/2013 RBC 2.79* 01/08/2013 HGB 8.7* 01/08/2013 HCT 26.1* 01/08/2013 MCV 93.5 01/08/2013 MCH 31.3 01/08/2013 MCHC 33.4 01/08/2013 RDW 42.4 01/08/2013 PLT 128* 01/08/2013 MPV 8.1 01/08/2013 DIFFTYPE AUTOMATED 01/08/2013 CMP: Lab Results Component Value Date NA 136 01/08/2013 K 4.4 01/08/2013 CL 110* 01/08/2013 CO2 24 01/08/2013 ANIONGAP 6 01/08/2013 GLUF 168* 01/08/2013 BUN 30* 01/08/2013 CREATININE 0.93 01/08/2013 BCR 32 01/08/2013 CA 8.0* 01/08/2013 PROT 5.3* 01/08/2013 ALB 3.2* 01/08/2013 GLOB 2.4 01/06/2013 BILITOT 0.3 01/08/2013 ALP 42 01/08/2013 AST 42 01/08/2013 ALT 34 01/08/2013 EGFR >60 01/08/2013 PROBLEM LIST Principal Problem: *Transaminitis Active Problems: Fracture of rib with flail chest SIRS (systemic inflammatory response syndrome) Hypotension, unspecified Chest pain, unspecified Hemopneumothorax on right Sacral fracture Blunt chest trauma Acute posthemorrhagic anemia ASSESSMENT & PLAN Plan today is improved respiratory therapy. The patient clearly needs to make a better effo rt at physiotherapy or she is going to have difficulties with hypoventilation. Her x-ray loo ked remarkably good for a patient with this level of injury. There is no hemothorax or pneum othorax. Encouraged for ongoing support, chest physiotherapy. Total face to face consultation about 20 minutes, greater than 50% was spent in consultatio n. Disposition: Code Status: Full Code ELZA SUE MD 01/08/2013 Suzanne Reinoso MD - 01/08/2013 7:11 AM PDT Progress Notes by Suzanne Leon MD at 01/08/13710 Author: Suzanne Leon MD Service: (none) Author Type: Physician Filed: 01/08/13715 Date of Service: 01/08/13710 Status: Signed Electrical Engineering Draftsperson: Suzanne Leon MD (Physician) [facility]: Cardiothoracic Surgery Progress Note Hospital Day: LOS: 2 days Post-Op Day: * No surgery found * SUBJECTIVE Patient Summary: Events Overnight: Was started on pressors for hypotension and low UOP Scheduled Medications docusate sodium 100 mg Oral BID Or docusate 100 mg Per OG Tube BID lactated ringers 1,000 mL Intravenous Once LORazepam 1 mg Intravenous Once metoclopramide 10 mg Intravenous Q6H omeprazole 20 mg Oral QAM AC Or pantoprazole 40 mg Intravenous QAM AC sodium chloride 1,000 mL Intravenous Once sodium chloride DISCONTD: chlorhexidine gluconate 15 mL Mouth/Throat Q12H Continuous Infusions DOPamine in D5W 1.6 mg/mL 16 mcg/kg/min (01/08/13 0353) norepinephrine in D5W 64 mcg/mL 8 mcg/min (01/08/13 0641) DISCONTD: DOPamine in D5W 1.6 mg/mL 5 mcg/kg/min (01/07/13 1725) DISCONTD: sodium chloride 20 mL/hr at 01/06/13 2230 PRN Medications acetaminophen, acetaminophen, HYDROcodone-acetaminophen, HYDROmorphone, lip moisturizer, ma gnesium sulfate, magnesium sulfate, magnesium sulfate, nystatin, nystatin, ondansetron, onda nsetron, potassium chloride, potassium chloride, potassium chloride, potassium chloride, pot assium chloride, potassium chloride, sodium phosphate IVPB 15 mmol, sodium phosphate IVPB 30 mmol, white petrolatum, DISCONTD: naloxone OBJECTIVE Vital Signs: BP 132/64 | Pulse 89 | Temp 98.8 F (37.1 C) (Oral) | Resp 11 | Ht 1.753 m (5' 9.02") | Wt 51.256 kg (113 lb) | BMI 16.68 kg/m2 | SpO2 93% | ? No Temp: [97.5 F (36.4 C)-99.3 F (37.4 C)] 98.8 F (37.1 C) (01/09 400) BP: (91-136)/(50-67) 132/64 mmHg (01/08 300) Heart Rate: [61-104] 89 (01/08 630) Resp: [9-24] 11 (01/08 630) SpO2: [82 %-100 %] 93 % (01/08 630) Physical Exam On examination Alert and oriented x 3 Heart: Rate and rhythm regular Chest: Air entry present bilaterally and decreased right Abdomen: soft non-tender non-distended normal bowel tones Extremities: warm and well perfused DATA CBC: Lab Results Component Value Date WBC 9.8 01/08/2013 RBC 2.79* 01/08/2013 HGB 8.7* 01/08/2013 HCT 26.1* 01/08/2013 MCV 93.5 01/08/2013 MCH 31.3 01/08/2013 MCHC 33.4 01/08/2013 RDW 42.4 01/08/2013 PLT 128* 01/08/2013 MPV 8.1 01/08/2013 DIFFTYPE AUTOMATED 01/08/2013 CMP: Lab Results Component Value Date NA 136 01/08/2013 K 4.4 01/08/2013 CL 110* 01/08/2013 CO2 24 01/08/2013 ANIONGAP 6 01/08/2013 GLUF 168* 01/08/2013 BUN 30* 01/08/2013 CREATININE 0.93 01/08/2013 BCR 32 01/08/2013 CA 8.0* 01/08/2013 PROT 5.3* 01/08/2013 ALB 3.2* 01/08/2013 GLOB 2.4 01/06/2013 BILITOT 0.3 01/08/2013 ALP 42 01/08/2013 AST 42 01/08/2013 ALT 34 01/08/2013 EGFR >60 01/08/2013 Last 3 Troponin: Lab Results Component Value Date TROPONINI 0.71* 01/07/2013 TROPONINI 1.14* 01/07/2013 TROPONINI 1.92* 01/07/2013 PROBLEM LIST Principal Problem: *Transaminitis Active Problems: Fracture of rib with flail chest SIRS (systemic inflammatory response syndrome) Hypotension, unspecified Chest pain, unspecified Hemopneumothorax on right Sacral fracture Blunt chest trauma Acute posthemorrhagic anemia ASSESSMENT & PLAN Transfuse [address] to -20 mm Hg suction Ambulate Encourage IS Wean Dopamine and Nor epi Will continue to follow Disposition: Code Status: Full Code SUZANNE LEON MD 01/08/2013 onversio n Transaction, Provider Unknown - 01/07/2013 9:33 PM PDTFormatting of this note might be di fferent from the original. Progress Notes by Isela Hendrickson RN at 01/07/132132 Author: Isela Hendrickson RN Service: (none) Author Type: Registered Nurse Filed: 01/07/132137 Date of Service: 01/07/132132 Status: Signed Electrical Engineering Draftsperson: Isela Hendrickson RN (Registered Nurse) Bedside procedure performed. Central line placed in RIJ by Dr. Martinez, verbal consent obt ained prior to insertion. CXR confirmed good-to-use by Dr. Martinez following procedure. Elza Fyo MD - 01/07/2013 8:56 AM PDT Progress Notes by Elza Sue MD at 01/07/13855 Author: Elza Sue MD Service: (none) Author Type: Physician Filed: 01/07/1349 Date of Service: 01/07/13855 Status: Signed Electrical Engineering Draftsperson: Elza Sue MD (Physician) Related Notes: Original Note by Elza Sue MD (Physician) filed at 01/07/1358 [facility]: General Surgery Progress Note Hospital Day: LOS: 1 day Post-Op Day: * No surgery found * SUBJECTIVE Patient Summary: Events Overnight: The patient is breathing comfortably overnight. She feels better t shah she did when she was admitted. She still has a lot of discomfort but is tolerating oral opiates, combination IV opiates. She is slightly oliguric, requiring fluid boluses. Did not get any blood products. Hemoglobin remains at 9. Chest tube output, she has had approximatel y 800 out since coming to ICU. Looks mostly serosanguineous. Scheduled Medications chlorhexidine gluconate 15 mL Mouth/Throat Q12H docusate sodium 100 mg Oral BID Or docusate 100 mg Per OG Tube BID HYDROmorphone 1 mg Intravenous Once lactated ringers 1,000 mL Intravenous Once metoclopramide 10 mg Intravenous Q6H omeprazole 20 mg Oral QAM AC Or pantoprazole 40 mg Intravenous QAM AC ondansetron 8 mg Intravenous Once ondansetron 8 mg Intravenous Once sodium chloride 1,000 mL Intravenous Once DISCONTD: ondansetron 8 mg Oral Once Continuous Infusions sodium chloride 20 mL/hr at 01/06/13 2230 PRN Medications acetaminophen, acetaminophen, HYDROcodone-acetaminophen, HYDROmorphone, lip moisturizer, ma gnesium sulfate, magnesium sulfate, magnesium sulfate, naloxone, nystatin, nystatin, ondanse kameron, ondansetron, potassium chloride, potassium chloride, potassium chloride, potassium chl oride, potassium chloride, potassium chloride, sodium phosphate IVPB 15 mmol, sodium phospha te IVPB 30 mmol, white petrolatum, DISCONTD: HYDROmorphone OBJECTIVE Vital Signs: BP 136/67 | Pulse 68 | Temp 97.5 F (36.4 C) (Axillary) | Resp 22 | Ht 1.753 m (5' 9.02" ) | Wt 51.256 kg (113 lb) | BMI 16.68 kg/m2 | SpO2 100% | ? No Temp: [97.4 F (36.3 C)-98.4 F (36.9 C)] 97.5 F (36.4 C) (01/07 0800) BP: (74-136)/(50-69) 136/67 mmHg (01/07 0800) Heart Rate: [65-90] 68 (01/07 799) Resp: [8-22] 22 (01/08 800) SpO2: [92 %-100 %] 100 % (01/08 800) Height: [175.3 cm (5' 9.02")] 175.3 cm (5' 9.02") (01/06 1935) Weight: [51.256 kg (113 lb)] 51.256 kg (113 lb) (01/06 1935) BMI (Calculated): [16.7] 16.7 (01/06 1935) Physical Exam Pulmonary/Chest: Effort normal. No respiratory distress. She has no wheezes. She has no ral es. She exhibits tenderness. DATA CBC: Lab Results Component Value Date WBC 13.1* 01/07/2013 RBC 3.00* 01/07/2013 HGB 9.3* 01/07/2013 HCT 28.8* 01/07/2013 MCV 94.8 01/07/2013 MCH 30.1 01/07/2013 MCHC 31.7* 01/07/2013 RDW 44.2 01/07/2013 PLT 142* 01/07/2013 MPV 7.8 01/07/2013 DIFFTYPE MANUAL 01/07/2013 CMP: Lab Results Component Value Date NA 141 01/07/2013 K 4.6 01/07/2013 CL 115* 01/07/2013 CO2 20* 01/07/2013 ANIONGAP 11 01/07/2013 GLUF 126* 01/07/2013 BUN 29* 01/07/2013 CREATININE 1.08* 01/07/2013 BCR 27 01/07/2013 CA 7.6* 01/07/2013 PROT 5.5* 01/06/2013 ALB 3.1* 01/06/2013 GLOB 2.4 01/06/2013 BILITOT 0.3 01/06/2013 ALP 60 01/06/2013 AST 54* 01/06/2013 ALT 55 01/06/2013 EGFR 53* 01/07/2013 PROBLEM LIST Principal Problem: *Transaminitis Active Problems: Fracture of rib with flail chest SIRS (systemic inflammatory response syndrome) Hypotension, unspecified Chest pain, unspecified Hemopneumothorax on right Sacral fracture Blunt chest trauma Acute posthemorrhagic anemia ASSESSMENT & PLAN Plan today is to continue chest tube drainage. Continue pain control. Dr. Leon wishes to have her in ICU another day to monitor her cardiac enzymes and status and signs of arrhythm ias. Beginning p.o. is reasonable and will initiate that. Disposition: Code Status: Full Code ELZA SUE MD 01/07/2013 Suzanne Reinoso MD - 01/07/2013 7:21 AM PDT Progress Notes by Suzanne Leon MD at 01/07/13720 Author: Suzanne Leon MD Service: (none) Author Type: Physician Filed: 01/07/13722 Date of Service: 01/07/13720 Status: Signed Electrical Engineering Draftsperson: Suzanne Leon MD (Physician) [facility]: Cardiothoracic Surgery Progress Note Hospital Day: LOS: 1 day Post-Op Day: * No surgery found * SUBJECTIVE Patient Summary: Events Overnight: Good pain control Feels better this am sats satisfactory on 2 L O2 Via NC CT output 100 cc overnight Scheduled Medications chlorhexidine gluconate 15 mL Mouth/Throat Q12H docusate sodium 100 mg Oral BID Or docusate 100 mg Per OG Tube BID HYDROmorphone 1 mg Intravenous Once lactated ringers 1,000 mL Intravenous Once metoclopramide 10 mg Intravenous Q6H omeprazole 20 mg Oral QAM AC Or pantoprazole 40 mg Intravenous QAM AC ondansetron 8 mg Intravenous Once ondansetron 8 mg Intravenous Once sodium chloride 1,000 mL Intravenous Once DISCONTD: ondansetron 8 mg Oral Once Continuous Infusions sodium chloride 20 mL/hr at 01/06/13 2230 PRN Medications acetaminophen, acetaminophen, HYDROcodone-acetaminophen, HYDROmorphone, lip moisturizer, ma gnesium sulfate, magnesium sulfate, magnesium sulfate, naloxone, nystatin, nystatin, ondanse kameron, ondansetron, potassium chloride, potassium chloride, potassium chloride, potassium chl oride, potassium chloride, potassium chloride, sodium phosphate IVPB 15 mmol, sodium phospha te IVPB 30 mmol, white petrolatum, DISCONTD: HYDROmorphone OBJECTIVE Vital Signs: BP 114/59 | Pulse 66 | Temp 97.9 F (36.6 C) (Oral) | Resp 10 | Ht 1.753 m (5' 9.02") | Wt 51.256 kg (113 lb) | BMI 16.68 kg/m2 | SpO2 98% | ? No Temp: [97.4 F (36.3 C)-98.4 F (36.9 C)] 97.9 F (36.6 C) (01/07 430) BP: (74-114)/(50-69) 114/59 mmHg (01/07 600) Heart Rate: [65-90] 66 (01/07 600) Resp: [8-18] 10 (01/07 430) SpO2: [92 %-100 %] 98 % (01/07 600) Height: [175.3 cm (5' 9.02")] 175.3 cm (5' 9.02") (01/06 1935) Weight: [51.256 kg (113 lb)] 51.256 kg (113 lb) (01/06 1935) BMI (Calculated): [16.7] 16.7 (01/06 1935) Physical Exam Vitals reviewed. Constitutional: She is oriented to person, place, and time. She appears well-developed and well-nourished. HENT: Head: Normocephalic. Neck: No JVD present. Cardiovascular: Normal rate, regular rhythm and normal heart sounds. Pulmonary/Chest: Breath sounds normal. Abdominal: Soft. Bowel sounds are normal. Musculoskeletal: Normal range of motion. She exhibits no edema. Neurological: She is alert and oriented to person, place, and time. DATA CBC: Lab Results Component Value Date WBC 13.1* 01/07/2013 RBC 3.00* 01/07/2013 HGB 9.0* 01/07/2013 HCT 28.4* 01/07/2013 MCV 94.8 01/07/2013 MCH 30.1 01/07/2013 MCHC 31.7* 01/07/2013 RDW 44.2 01/07/2013 PLT 142* 01/07/2013 MPV 7.8 01/07/2013 DIFFTYPE MANUAL 01/07/2013 CMP: Lab Results Component Value Date NA 141 01/07/2013 K 4.6 01/07/2013 CL 115* 01/07/2013 CO2 20* 01/07/2013 ANIONGAP 11 01/07/2013 GLUF 126* 01/07/2013 BUN 29* 01/07/2013 CREATININE 1.08* 01/07/2013 BCR 27 01/07/2013 CA 7.6* 01/07/2013 PROT 5.5* 01/06/2013 ALB 3.1* 01/06/2013 GLOB 2.4 01/06/2013 BILITOT 0.3 01/06/2013 ALP 60 01/06/2013 AST 54* 01/06/2013 ALT 55 01/06/2013 EGFR 53* 01/07/2013 Last 3 Troponin: Lab Results Component Value Date TROPONINI 1.92* 01/07/2013 TROPONINI 2.99* 01/06/2013 TROPONINI 2.90* 01/06/2013 CPK: Lab Results Component Value Date CKTOTAL 166 01/06/2013 CKMB: Lab Results Component Value Date CKMB 7.9* 01/06/2013 PROBLEM LIST Principal Problem: *Transaminitis Active Problems: Fracture of rib with flail chest SIRS (systemic inflammatory response syndrome) Hypotension, unspecified Chest pain, unspecified Hemopneumothorax on right Sacral fracture Blunt chest trauma Acute posthemorrhagic anemia ASSESSMENT & PLAN Echo this am Continue ICU care for now Continue CT for now Will continue to follow Disposition: Code Status: Full Code SUZANNE LEON MD 01/07/2013 Jeffrey Mcfadden MD - 01/07/2013 5:30 AM PDTFormatting of this note might be different from the orig inal. Progress Notes by Jeffrey Martinez MD at 01/07/13529 Author: Jeffrey Martinez MD Service: (none) Author Type: Bonded Structures Repairer Filed: 01/07/13627 Date of Service: 01/07/13529 Status: Signed Electrical Engineering Draftsperson: Jeffrey Martinez MD (Bonded Structures Repairer) [facility]: Bonded Structures Repairer Progress Note Kassi Maxwell 72 y.o. Hospital Day: LOS: 1 day Post-Op Day: * No surgery found * Treatment Team: Consulting Physician: Elza Sue MD Consulting Physician: Suzanne Leon MD Consulting Physician: Jeffrey Martinez MD Consulting Physician: Ronal Shah MD Admitting Provider: Elza Sue MD SUBJECTIVE Patient Summary: The patient is a 72 y.o. female with significant past medical history of Htn, osteoporosis who presents with From [facility] in [place] s/p blunt chest trauma to the chest kicked by her own horse while she was trying to give it th eWNV vaccine. No LOC but ems michael the rto the ED where she was hemodynamically stable and then sbp woul d drop top the 80's with pain meds so she received 4 liters crystalloids. 2 liters nasal can riddhi, no malignant rhythm. Ct : multiple comminuted and depressed right rib fractures tilting the sternum, no clear cu t sternal fracture, substernal hematoma, small pericardial effusion, right ptx, right lung c ontusion, small pneumomediastinum, Right right hemothorax, left sacral fx, small amount of f luid in the left pelvis, likely blood per report. Ct spine neg for fx or malalignement Ct head neg for blood Sodium 140 k 4.1 Glucose 126 Bun 30 Creat1.06 Alcohol<10, amylase 43 Wbc 8 hct 40 plt 251 a t 16:15 At 18:15 wbc 17 hct 31 plt 190 after 4 liters crysatalloids cpk 149 Tn ckmb 5.3 Index 3.6 hct at [facility] 29 plt 150 ecg at [facility]' 91 sr with qtc 479 with rbbb Repeat ecg at [facility]: 85 nsr with qtc 480 with rbbb, no previous ecg. She received a right chest tube with 300 cc of blood out , apparently 200 cc in our ed of f resh blood. Pt takes asa(to prevent strokes). She c/o chest pain when she breathes and low back pain mainly on the right and some chest d iscomfort overall, sy placed no hematuria macroscopically, mild nausea post fentanyl. Pt was in her usual state of health prior. Dr sue and armand (ortho) consulted as well as the icu team. ICU TIMELINE: 01-06:stat echo without tamponade, normal EF, no hypokinesis Events Overnight: less chest tube drainage, deckhand engineer held sec to hypotension that responded to 1 liter crystalloid PAST MEDICAL HISTORY: Past Medical History Diagnosis Date Hypertension Osteoporosis Rheumatoid arthritis PAST SURGICAL HISTORY: Past Surgical History Procedure Date Unlisted procedure arthroscopy Hysterectomy Back surgery Colonoscopy MEDICATION ALLERGIES: Allergies Allergen Reactions Codeine Nausea and Vomiting Hydrocodone Nausea and Vomiting Morphine Nausea and Vomiting Propoxyphene Nausea and Vomiting MEDICATIONS PRIOR TO ADMISSION: Prescriptions prior to admission Medication Sig Dispense Refill aspirin 81 MG EC tablet Take 81 mg by mouth daily with breakfast. gabapentin (NEURONTIN) 400 MG capsule Take 400 mg by mouth 3 (three) times daily. senna (SENOKOT) 8.6 MG tablet Take 2 tablets by mouth daily. UNKNOWN TO PATIENT as needed. OTC stool softner HYDROcodone-acetaminophen (NORCO) 5-325 MG per tablet Take 1 tablet by mouth every 6 (s ix) hours as needed. ibuprofen (ADVIL,MOTRIN) 200 MG tablet Take 200 mg by mouth every 6 (six) hours as need ed. topiramate (TOPAMAX) 50 MG tablet Take 50 mg by mouth 2 (two) times daily. Scheduled Medications chlorhexidine gluconate 15 mL Mouth/Throat Q12H docusate sodium 100 mg Oral BID Or docusate 100 mg Per OG Tube BID HYDROmorphone 1 mg Intravenous Once metoclopramide 10 mg Intravenous Q6H omeprazole 20 mg Oral QAM AC Or pantoprazole 40 mg Intravenous QAM AC ondansetron 8 mg Intravenous Once ondansetron 8 mg Intravenous Once sodium chloride 1,000 mL Intravenous Once DISCONTD: ondansetron 8 mg Oral Once Continuous Infusions sodium chloride 20 mL/hr at 01/06/13 2230 PRN Medications acetaminophen, acetaminophen, HYDROmorphone, lip moisturizer, magnesium sulfate, magnesium sulfate, magnesium sulfate, naloxone, nystatin, nystatin, ondansetron, ondansetron, potassiu m chloride, potassium chloride, potassium chloride, potassium chloride, potassium chloride, potassium chloride, sodium phosphate IVPB 15 mmol, sodium phosphate IVPB 30 mmol, white cj olatum OBJECTIVE Vital Signs: BP 93/55 | Pulse 66 | Temp 97.9 F (36.6 C) (Oral) | Resp 10 | Ht 1.753 m (5' 9.02") | W t 51.256 kg (113 lb) | BMI 16.68 kg/m2 | SpO2 100% | ? No Temp: [97.4 F (36.3 C)-98.4 F (36.9 C)] 97.9 F (36.6 C) (01/07 430) BP: (74-111)/(50-69) 93/55 mmHg (01/07 515) Heart Rate: [66-90] 66 (01/07 515) Resp: [8-18] 10 (01/07 430) SpO2: [92 %-100 %] 100 % (01/07 515) Height: [175.3 cm (5' 9.02")] 175.3 cm (5' 9.02") (01/06 1935) Weight: [51.256 kg (113 lb)] 51.256 kg (113 lb) (01/06 1935) BMI (Calculated): [16.7] 16.7 (01/06 1935) EXAM GEN: Awake, alert, oriented x3, in mild pain but able to take acceptably deep breaths NEURO: PERRLA, EOMI, no facial asymmetry, speech normal, moves all extremities well GCS:15 HEENT: sclerae clear, nonicteric, oral mmm, pink, no exudates NECK: supple, trachea midline, no thyroidmegaly HEART: RRR, no murmur, rub or gallop LUNGS: decreased bs on the right, with crackles, no w, chest tube in place draining blood Chest tube insertion site ok ABD: soft, nondistended, nontender to palpation, no masses, no hepatosplenomegaly EXTR: no edema, clubbing or cyanosis SKIN: warm, dry, no rash or mottling; no e/o skin breakdown over the occiput, scapulae, elb ows, sacrum or heels DATA Lab 01/06/136 01/06/131929 WBC -- 15.6* HGB 10.2* 9.5* HCT 31.3* 29.0* PLT -- 150 Lab 01/06/132345 NA 148* K 4.4 CL 113* CO2 22* BUN 26* CREATININE 1.00 LABGLOM -- GLUCOSE -- CALCIUM -- PROBLEM LIST Principal Problem: *Transaminitis Active Problems: Fracture of rib with flail chest SIRS (systemic inflammatory response syndrome) Hypotension, unspecified Chest pain, unspecified Hemopneumothorax on right Sacral fracture Blunt chest trauma Acute posthemorrhagic anemia ASSESSMENT & PLAN NEURO: Non focal exam, ct spine negative for fracture, no collar CARDIOVASCULAR: Blunt chest trauma:possible myocardial contusion with the rbbb and trop rise and small dillan cardial effusion on the ct chest, stat echo without tamponade or hypominesis and good EF, dr leon comanageing.. No clinical signs of tamponade, Small pneumomediastinum:follow Hypotension intiially sec to narcotic infusion probably in the setting of hypovolemia(not s hock) that responded to ivf PULMONARY: pulmonary contusion with right hemopneumothorax/flail chest: chesttube in place,draining le ss, comanaging w dr leon, no OR indication for now. Risk of intubation substantial sec to pain and conjtusion, PATHOLOGY TEACHER dialudid dc'd and now switched to norco and dialudid prn. GI: advance, no e/o intraabdominal process, Transaminitis:follow, abd exam benign, RENAL: No macroscopic hematuria, no e/o rhabdo, uo dropped resoponded to bolus of LR INFECTIOUS DISEASE: No e/o infection HEME: hct stabilized . hct q 4. ENDOCRINE: endotool MUSCULOSKELETAL: Right sacral fracture:dr keene requested special xr of the hip, no indication of bleeding there or bladder rupture PROPHYLAXIS: Stress ulcer prophylaxis-gerd, omeprazole(home) DVT prophylaxis-no heparin sec to hemothorax VAP: chlorhexadine oral care and HOB > 30 degrees Disposition:icu care as above, family updated at bedside. Code Status: Full Code *Please bill 45 minutes of critical care time spent evaluating the patient, reviewing the d macario and formulating a plan exclusive of all other procedures. JEFFREY MARTINEZ MD 01/07/2013 5:30 AM onversion Transacti on, Provider Unknown - 01/07/2013 4:56 AM PDTFormatting of this note might be different fro m the original. Progress Notes by Dajuan Krause RPH at 01/07/13455 Author: Dajuan Krause RPH Service: (none) Author Type: Pharmacist Filed: 01/07/13455 Date of Service: 01/07/13455 Status: Signed Electrical Engineering Draftsperson: Dajuan Krause RPH (Pharmacist) Note ccl 41.2ml/min meds reviewed Pharmacy will follow c 0456 onver alex Transaction, Provider Unknown - 01/07/2013 3:48 AM PDT Progress Notes by Isela Hendrickson RN at 01/07/13347 Author: Isela Hendrickson RN Service: (none) Author Type: Registered Nurse Filed: 01/07/13 0353 Date of Service: 01/07/13347 Status: Signed Electrical Engineering Draftsperson: Isela Hendrickson RN (Registered Nurse) Pt ETCO2 monitor alarming low RR. Pt checked and RR noted to be lower than 6. Pt aroused and wakes easily, RR then increases to mid-teens. Pt advised that she needs to take bigger breaths and more frequently or PATHOLOGY TEACHER will be turned off to prevent apnea, pt verbalizes unders tanding. Pt again falls asleep and has periods of apnea, PATHOLOGY TEACHER is now turned off for the time being and pt again states understanding. Will continue to monitor closely. docume nted in this encounter H&P Notes Elza Sue MD - 01/06/2013 8:35 PM PDTFormatting of this note might be different fr om the original. H&P by Elza Sue MD at 01/06/132034 Author: Elza Sue MD Service: (none) Author Type: Physician Filed: 01/07/13 0949 Date of Service: 01/06/132034 Status: Signed Electrical Engineering Draftsperson: Elza Sue MD (Physician) Related Notes: Original Note by Elza Sue MD (Physician) filed at 01/06/132038 [facility]: Emergency Department Admission History & Physical Date of Admission: 01/06/2013 Requesting Physician: , Emergency Department Reason for Admission: trauma History Obtained From: patient CHIEF COMPLAINT: Chest trauma HISTORY OF PRESENT ILLNESS The patient is a 72 y.o. female with significant past medical history of who presents wi th This is a 72-year-old female who was giving her grandson's horse a vaccination in the [facility] quarters. Unfortunately during the vaccination the horse kicked, hitting her in the righ t chest wall causing her to be actually catapulted, landing on her sacrum. She had a signifi cant chest injury and was brought to the emergency room in [place]. She was seen and evalu ated, and found to have a significant flail crush chest of about 6 ribs, a hemothorax and pn eumothorax, and a sternal deformity compressing the cardiac area. There is a questionable pe ricardial effusion. There were no intraabdominal injuries. She did have a sacral fracture. Because of the complexity of her chest injury she is sent here for consultation. She is bein g to the ICU. Blood pressures here have been somewhat unstable in the 80s. Her hemoglobin is 9.5. She seems to be breathing pretty well but she is complaining of a lot of chest pain an d some tightness in the right chest. Her chest tube was in place and draining approximately 500 mL. REVIEW OF SYSTEMS Review of Systems Constitutional: Negative. HENT: Negative. Eyes: Negative for pain, redness and itching. Respiratory: Positive for chest tightness and shortness of breath. Negative for apnea, coug h, choking, wheezing and stridor. Cardiovascular: Positive for chest pain. Negative for palpitations and leg swelling. Gastrointestinal: Negative for nausea, vomiting, abdominal pain, diarrhea, constipation, bl ood in stool, abdominal distention, anal bleeding and rectal pain. Genitourinary: Negative. Musculoskeletal: Negative. Neurological: Negative. Hematological: Negative. Psychiatric/Behavioral: Negative. Past Medical History Diagnosis Date Hypertension Osteoporosis Rheumatoid arthritis Past Surgical History Procedure Date Unlisted procedure arthroscopy Hysterectomy Back surgery Immunizations: Influenza: Not indicated Pneumoccocal: Not indicated Allergies Allergen Reactions Codeine Nausea and Vomiting Hydrocodone Nausea and Vomiting Morphine Nausea and Vomiting Propoxyphene Nausea and Vomiting (Not in a hospital admission) No family history on file. History Social History Marital Status: Spouse Name: N/A Number of Children: N/A Years of Education: N/A Occupational History Not on file. Social History Main Topics Smoking status: Not on file Smokeless tobacco: Not on file Alcohol Use: No Drug Use: No Sexually Active: Other Topics Concern Not on file Social History Narrative No narrative on file PHYSICAL EXAM Vital Signs: BP 102/61 | Pulse 85 | Temp 98 F (36.7 C) | Resp 18 | Ht 1.753 m (5' 9.02") | Wt 51.256 kg (113 lb) | BMI 16.68 kg/m2 | SpO2 99% Physical Exam Vitals reviewed. Constitutional: She is oriented to person, place, and time. She appears well-developed and well-nourished. She appears distressed. HENT: Head: Normocephalic and atraumatic. Eyes: Conjunctivae normal are normal. Pupils are equal, round, and reactive to light. No sc leral icterus. Neck: Normal range of motion. Neck supple. No JVD present. No tracheal deviation present. N o thyromegaly present. Cardiovascular: Normal rate, regular rhythm, normal heart sounds and intact distal pulses. Exam reveals no gallop and no friction rub. No murmur heard. Pulmonary/Chest: Breath sounds normal. No stridor. No respiratory distress. She has no whee zes. She has no rales. She exhibits tenderness. Abdominal: Soft. Bowel sounds are normal. She exhibits no mass. There is no tenderness. The re is no rebound and no guarding. Musculoskeletal: Normal range of motion. She exhibits no edema and no tenderness. Lymphadenopathy: She has no cervical adenopathy. Neurological: She is alert and oriented to person, place, and time. Skin: Skin is dry. She is not diaphoretic. No erythema. Psychiatric: She has a normal mood and affect. Her behavior is normal. Judgment and thought content normal. DATA CBC: Lab Results Component Value Date WBC 15.6* 01/06/2013 RBC 3.13* 01/06/2013 HGB 9.5* 01/06/2013 HCT 29.0* 01/06/2013 MCV 92.7 01/06/2013 MCH 30.3 01/06/2013 MCHC 32.7 01/06/2013 RDW 43.3 01/06/2013 PLT 150 01/06/2013 MPV 7.8 01/06/2013 DIFFTYPE AUTOMATED 01/06/2013 CMP: Lab Results Component Value Date NA 138 04/11/2012 K 3.9 04/11/2012 CL 105 04/11/2012 CO2 28 04/11/2012 ANIONGAP 9 04/11/2012 GLUF 85 04/11/2012 BUN 28* 04/11/2012 CREATININE 0.98 04/11/2012 BCR 29 04/11/2012 CA 9.6 04/11/2012 PROT 7.0 04/11/2012 ALB 4.4 04/11/2012 GLOB 2.6 04/11/2012 BILITOT 0.4 04/11/2012 ALP 67 04/11/2012 AST 23 04/11/2012 ALT 13 04/11/2012 EGFR 59* 04/11/2012 PROBLEM LIST Principal Problem: *Chest pain, unspecified Active Problems: Fracture of rib with flail chest SIRS (systemic inflammatory response syndrome) Hypotension, unspecified ASSESSMENT & PLAN At this point the plan is the patient needs to be admitted to intensive care. Consultation with cardiothoracic surgery has been made. Her chest tube may need to be manipulated based o n position but it seems to be draining blood. She may need a blood transfusion. Assuring the patient has adequate respirations without intubation is going to be the han, and will need adequate pain control and chest physiotherapy. She was counseled that she may need intubatio n at some point if she deteriorates any further. She understands. She is awake and alert. Bl ood pressure should come up with fluid resuscitation and blood products. Concern for cardiac injury is made and Dr. Leon is seeing her for that as well. Disposition: Code Status: No Order Primary Care Physician: JACINTA SUE MD 01/06/2013 documented in this encounter Procedure Notes Jeffrey Martinez MD - 01/07/2013 9:33 PM PDTFormatting of this note might be different fro m the original. Procedures by Jeffrey Martinez MD at 01/07/132132 Author: Jeffrey Martinez MD Service: (none) Author Type: Bonded Structures Repairer Filed: 01/07/132133 Date of Service: 01/07/132132 Status: Signed Electrical Engineering Draftsperson: Jeffrey Martinez MD (Bonded Structures Repairer) Procedure Orders: 1. Central line [[id number]] ordered by Jeffrey Martinez MD at 01/07/132132 Post-procedure Diagnoses: 1. Flail chest [807.4] 2. Pneumothorax [512.89] 3. Hemothorax [511.89] 4. Sacral fracture (HCC) [805.6] 5. Sternal fracture [807.2] 6. Hypotension [458.9] 7. Acute posthemorrhagic anemia [285.1] 8. Blunt chest trauma [959.11] 9. Chest pain, unspecified [786.50] 10. Fracture of rib with flail chest [807.4] 11. Hemopneumothorax on right [511.89] 12. Hypotension, unspecified [458.9] 13. SIRS (systemic inflammatory response syndrome) (HCC) [995.90] 14. Transaminitis [790.4] [facility]: Bonded Structures Repairer BEDSIDE PROCEDURE NOTE Central Line Date/Time: 01/07/2013 9:33 PM Performed by: JEFFREY MARTINEZ Authorized by: JEFFREY MARTINEZ Consent: Written consent obtained. Consent given by: patient Patient understanding: patient states understanding of the procedure being performed Patient consent: the patient's understanding of the procedure matches consent given Procedure consent: procedure consent matches procedure scheduled Relevant documents: relevant documents present and verified Test results: test results available and properly labeled Site marked: the operative site was marked Imaging studies: imaging studies available Patient identity confirmed: verbally with patient Time out: Immediately prior to procedure a "time out" was called to verify the correct amie ent, procedure, equipment, technical support professional and site/side marked as required. Indications: vascular access and central pressure monitoring Local anesthetic: lidocaine 1% without epinephrine Patient sedated: yes Sedation type: anxiolysis Preparation: skin prepped with 2% chlorhexidine Skin prep agent dried: skin prep agent completely dried prior to procedure Sterile barriers: all five maximum sterile barriers used - cap, mask, sterile gown, sterile gloves, and large sterile sheet Hand hygiene: hand hygiene performed prior to central venous catheter insertion Location details: left internal jugular Patient position: Trendelenburg Catheter type: triple lumen Catheter size: 7 Fr Pre-procedure: landmarks identified Ultrasound guidance: yes Number of attempts: 1 Successful placement: yes Post-procedure: line sutured and dressing applied Assessment: blood return through all parts, free fluid flow, placement verified by x-ray an d no pneumothorax on x-ray JEFFREY MARTINEZ MD 01/07/2013 documented in this e ncounter Consult Notes Chidi Ronal Vernon - 01/07/2013 11:48 AM PDT Consult* by Ronal Shah MD at 01/07/13 7595 Author: Ronal Shah MD Service: (none) Author Type: Physician Filed: 01/07/13 9072 Date of Service: 01/07/13 7456 Status: Signed Electrical Engineering Draftsperson: Ronal Shah MD (Physician) [facility]: Orthopedic Surgery Initial Consult Note Date of Admission: 01/06/2013 Reason for Consultation: Sacral fracture Requesting Physician: Dr. Sue, General Medicine and General Surgery History Obtained From: patient CHIEF COMPLAINT: Rib pain, tail bone HISTORY OF PRESENT ILLNESS The patient is a 72 y.o. female with significant past medical history of RA and HTN who pr esents with chest pain and tail bone pain after getting kicked by a horse. She complains of pain in her tail bone, but this is the least of her pain. She did not get kicked in her pel vis, but she was lifted off the ground with the kick and landed on her back and butt. She de nies numbness or tingling in her legs. She is able to move her legs without pain. Her pain i s primarily in her chest and back on the right. She sustained rib fractures and flail chest from the kick. She denies head injury or LOC, and she had chest tube placed in [place]. REVIEW OF SYSTEMS Review of Systems Constitutional: Negative for fever, activity change, fatigue and unexpected weight change. HENT: Negative for nosebleeds, neck pain, neck stiffness, dental problem, voice change, tin nitus and ear discharge. Respiratory: Negative for cough, chest tightness, shortness of breath and wheezing. Cardiovascular: Positive for chest pain. Negative for palpitations and leg swelling. Gastrointestinal: Negative for nausea, vomiting, abdominal pain, diarrhea, constipation, bl ood in stool, abdominal distention and anal bleeding. Genitourinary: Negative for hematuria, vaginal bleeding and menstrual problem. Musculoskeletal: Negative for myalgias, back pain and joint swelling. She complains of "lance l bone" pain. Skin: Negative for pallor, rash and wound. Neurological: Negative for dizziness, tremors, seizures, syncope, facial asymmetry, speech difficulty, weakness, light-headedness and headaches. Hematological: Negative for adenopathy. Does not bruise/bleed easily. Psychiatric/Behavioral: Negative for suicidal ideas, behavioral problems, confusion and juliet tation. The patient is not nervous/anxious. Past Medical History Diagnosis Date Hypertension Osteoporosis Rheumatoid arthritis Past Surgical History Procedure Date Unlisted procedure arthroscopy Hysterectomy Back surgery Colonoscopy Allergies Allergen Reactions Codeine Nausea and Vomiting Hydrocodone Nausea and Vomiting Morphine Nausea and Vomiting Propoxyphene Nausea and Vomiting Prescriptions prior to admission Medication Sig Dispense Refill aspirin 81 MG EC tablet Take 81 mg by mouth daily with breakfast. gabapentin (NEURONTIN) 400 MG capsule Take 400 mg by mouth 3 (three) times daily. senna (SENOKOT) 8.6 MG tablet Take 2 tablets by mouth daily. UNKNOWN TO PATIENT as needed. OTC stool softner HYDROcodone-acetaminophen (NORCO) 5-325 MG per tablet Take 1 tablet by mouth every 6 (s ix) hours as needed. ibuprofen (ADVIL,MOTRIN) 200 MG tablet Take 200 mg by mouth every 6 (six) hours as need ed. topiramate (TOPAMAX) 50 MG tablet Take 50 mg by mouth 2 (two) times daily. Scheduled Medications docusate sodium 100 mg Oral BID Or docusate 100 mg Per OG Tube BID HYDROmorphone 1 mg Intravenous Once lactated ringers 1,000 mL Intravenous Once metoclopramide 10 mg Intravenous Q6H omeprazole 20 mg Oral QAM AC Or pantoprazole 40 mg Intravenous QAM AC ondansetron 8 mg Intravenous Once ondansetron 8 mg Intravenous Once sodium chloride 1,000 mL Intravenous Once DISCONTD: chlorhexidine gluconate 15 mL Mouth/Throat Q12H DISCONTD: ondansetron 8 mg Oral Once Continuous Infusions DISCONTD: sodium chloride 20 mL/hr at 01/06/13 2230 PRN Medications acetaminophen, acetaminophen, HYDROcodone-acetaminophen, HYDROmorphone, lip moisturizer, ma gnesium sulfate, magnesium sulfate, magnesium sulfate, nystatin, nystatin, ondansetron, onda nsetron, potassium chloride, potassium chloride, potassium chloride, potassium chloride, pot assium chloride, potassium chloride, sodium phosphate IVPB 15 mmol, sodium phosphate IVPB 30 mmol, white petrolatum, DISCONTD: HYDROmorphone, DISCONTD: naloxone History reviewed. No pertinent family history. History Social History Marital Status: Spouse Name: N/A Number of Children: N/A Years of Education: N/A Occupational History Not on file. Social History Main Topics Smoking status: Former Smoker Quit date: 01/08/1980 Smokeless tobacco: Never Used Alcohol Use: No Drug Use: No Sexually Active: Other Topics Concern Not on file Social History Narrative No narrative on file PHYSICAL EXAM Vital Signs: BP 93/54 | Pulse 63 | Temp 97.5 F (36.4 C) (Axillary) | Resp 22 | Ht 1.753 m (5' 9.02") | Wt 51.256 kg (113 lb) | BMI 16.68 kg/m2 | SpO2 100% | ? No Physical Exam General: awake and alert with appropriate affect, NAD. Ortho Exam Lower extremeties: no pain over sacrum, no pain with pelvic compression. No pain with hip R OM. Moving knees, ankles, hips without pain, passively. She has intact feeling in legs, no d eformities. Skin intact. DP pulse palpable. DATA CBC: Lab Results Component Value Date WBC 13.1* 01/07/2013 RBC 3.00* 01/07/2013 HGB 9.3* 01/07/2013 HCT 28.8* 01/07/2013 MCV 94.8 01/07/2013 MCH 30.1 01/07/2013 MCHC 31.7* 01/07/2013 RDW 44.2 01/07/2013 PLT 142* 01/07/2013 MPV 7.8 01/07/2013 DIFFTYPE MANUAL 01/07/2013 PROBLEM LIST Principal Problem: *Transaminitis Active Problems: Fracture of rib with flail chest SIRS (systemic inflammatory response syndrome) Hypotension, unspecified Chest pain, unspecified Hemopneumothorax on right Sacral fracture Blunt chest trauma Acute posthemorrhagic anemia ASSESSMENT & PLAN Patient Active Hospital Problem List: Sacral fracture (01/06/2013) Assessment: She was kicked by a horse and sustained rib fractures and a flail chest. Her CT scan from [facility] shows a non-displaced sacral fracture. This is not visible on brodie in films. She has no pain with compression of pelvis or palpation over fracture site. This f racture is likely from falling back after getting kicked. Her pelvis is not unstable and she has no restrictions with hip ROM. She may WBAT on both lower extremities. She will likely n eed a walker to ambulate. Plan: This is a stable fracture and it doesn't require any intervention. This will heal w ith time. -mobilize as tolerated BLE, no restrictions related to sacral fracture -follow-up with orthopedist in 3-4 weeks (either locally or with me) Code Status: Full Code Primary Care Physician: JACINTA JOHNSON Thank you for this consult. RONAL SHAH MD 01/07/2013 Kemar, MD Suzanne - 01/06/2013 9:49 PM PDTFormatting of this note might be different from the orig inal. Consult* by Suzanne Leon MD at 01/06/132148 Author: Suzanne Leon MD Service: (none) Author Type: Physician Filed: 01/09/13800 Date of Service: 01/06/132148 Status: Signed Electrical Engineering Draftsperson: Suzanne Leon MD (Physician) [facility] Service: Cardiothoracic Surgery Initial Consult Note Date of Admission: 01/06/2013 Reason for Consultation: Blunt chest trauma Requesting Physician: Dr Munoz, Emergency Department History Obtained From: patient CHIEF COMPLAINT: Blunt chest trauma HISTORY OF PRESENT ILLNESS The patient is a 72 y.o. female with significant past medical history of HTN, osteoporosis who was kicked by a horse in the right side of the chest this afternoon. No h/o head injury. Right intercostal intubation performed at [facility] drained 600 cc of bloody flui d. No e/o air leak REVIEW OF SYSTEMS Review of Systems Constitutional: Negative for fever, activity change, fatigue and unexpected weight change. HENT: Negative for nosebleeds, neck pain, neck stiffness, dental problem, voice change, tin nitus and ear discharge. Respiratory: Negative for cough, chest tightness, shortness of breath and wheezing. Cardiovascular: Positive for chest pain. Negative for palpitations and leg swelling. Gastrointestinal: Negative for nausea, vomiting, abdominal pain, diarrhea, constipation, bl ood in stool, abdominal distention and anal bleeding. Genitourinary: Negative for hematuria, vaginal bleeding and menstrual problem. Musculoskeletal: Negative for myalgias, back pain and joint swelling. Skin: Negative for pallor, rash and wound. Neurological: Negative for dizziness, tremors, seizures, syncope, facial asymmetry, speech difficulty, weakness, light-headedness and headaches. Hematological: Negative for adenopathy. Does not bruise/bleed easily. Psychiatric/Behavioral: Negative for suicidal ideas, behavioral problems, confusion and juliet tation. The patient is not nervous/anxious. Past Medical History Diagnosis Date Hypertension Osteoporosis Rheumatoid arthritis Past Surgical History Procedure Date Unlisted procedure arthroscopy Hysterectomy Back surgery Allergies Allergen Reactions Codeine Nausea and Vomiting Hydrocodone Nausea and Vomiting Morphine Nausea and Vomiting Propoxyphene Nausea and Vomiting Prescriptions prior to admission Medication Sig Dispense Refill aspirin 81 MG EC tablet Take 81 mg by mouth daily with breakfast. gabapentin (NEURONTIN) 400 MG capsule Take 400 mg by mouth 3 (three) times daily. senna (SENOKOT) 8.6 MG tablet Take 2 tablets by mouth daily. UNKNOWN TO PATIENT as needed. OTC stool softner HYDROcodone-acetaminophen (NORCO) 5-325 MG per tablet Take 1 tablet by mouth every 6 (s ix) hours as needed. ibuprofen (ADVIL,MOTRIN) 200 MG tablet Take 200 mg by mouth every 6 (six) hours as need ed. topiramate (TOPAMAX) 50 MG tablet Take 50 mg by mouth 2 (two) times daily. Scheduled Medications chlorhexidine gluconate 15 mL Mouth/Throat Q12H docusate sodium 100 mg Oral BID Or docusate 100 mg Per OG Tube BID HYDROmorphone 1 mg Intravenous Once metoclopramide 10 mg Intravenous Q6H omeprazole 20 mg Oral QAM AC Or pantoprazole 40 mg Intravenous QAM AC ondansetron 8 mg Intravenous Once ondansetron 8 mg Intravenous Once DISCONTD: ondansetron 8 mg Oral Once Continuous Infusions sodium chloride PRN Medications acetaminophen, acetaminophen, HYDROmorphone, lip moisturizer, magnesium sulfate, magnesium sulfate, magnesium sulfate, naloxone, nystatin, nystatin, ondansetron, ondansetron, potassiu m chloride, potassium chloride, potassium chloride, potassium chloride, potassium chloride, potassium chloride, sodium phosphate IVPB 15 mmol, sodium phosphate IVPB 30 mmol, white cj olatum No family history on file. History Social History Marital Status: Spouse Name: N/A Number of Children: N/A Years of Education: N/A Occupational History Not on file. Social History Main Topics Smoking status: Not on file Smokeless tobacco: Not on file Alcohol Use: No Drug Use: No Sexually Active: Other Topics Concern Not on file Social History Narrative No narrative on file History Smoking status Not on file Smokeless tobacco Not on file PHYSICAL EXAM Vital Signs: BP 105/68 | Pulse 84 | Temp 97.4 F (36.3 C) (Oral) | Resp 14 | Ht 1.753 m (5' 9.02") | Wt 51.256 kg (113 lb) | BMI 16.68 kg/m2 | SpO2 99% Temp: [97.4 F (36.3 C)-98 F (36.7 C)] 97.4 F (36.3 C) (01/06 2115) BP: (80-109)/(56-68) 105/68 mmHg (01/06 2115) Heart Rate: [80-86] 84 (01/06 2115) Resp: [12-18] 14 (01/06 2115) SpO2: [95 %-100 %] 99 % (01/06 2115) Height: [175.3 cm (5' 9.02")] 175.3 cm (5' 9.02") (01/06 1935) Weight: [51.256 kg (113 lb)] 51.256 kg (113 lb) (01/06 1935) BMI (Calculated): [16.7] 16.7 (01/06 1935) Physical Exam Vitals reviewed. Constitutional: She is oriented to person, place, and time. She appears well-developed and well-nourished. HENT: Head: Normocephalic. Neck: No JVD present. Cardiovascular: Normal rate, regular rhythm and normal heart sounds. Pulmonary/Chest: Breath sounds normal. No tenderness over the sternum, tenderness right side of the chest AE + bilaterally Abdominal: Soft. Bowel sounds are normal. Musculoskeletal: Normal range of motion. She exhibits no edema. Neurological: She is alert and oriented to person, place, and time. DATA CBC: Lab Results Component Value Date WBC 15.6* 01/06/2013 RBC 3.13* 01/06/2013 HGB 9.5* 01/06/2013 HCT 29.0* 01/06/2013 MCV 92.7 01/06/2013 MCH 30.3 01/06/2013 MCHC 32.7 01/06/2013 RDW 43.3 01/06/2013 PLT 150 01/06/2013 MPV 7.8 01/06/2013 DIFFTYPE AUTOMATED 01/06/2013 CMP: Lab Results Component Value Date NA 138 04/11/2012 K 3.9 04/11/2012 CL 105 04/11/2012 CO2 28 04/11/2012 ANIONGAP 9 04/11/2012 GLUF 85 04/11/2012 BUN 28* 04/11/2012 CREATININE 0.98 04/11/2012 BCR 29 04/11/2012 CA 9.6 04/11/2012 PROT 7.0 04/11/2012 ALB 4.4 04/11/2012 GLOB 2.6 04/11/2012 BILITOT 0.4 04/11/2012 ALP 67 04/11/2012 AST 23 04/11/2012 ALT 13 04/11/2012 EGFR 59* 04/11/2012 Last 3 Troponin: Lab Results Component Value Date TROPONINI 2.90* 01/06/2013 PROBLEM LIST Principal Problem: *Blunt chest trauma Active Problems: Fracture of rib with flail chest SIRS (systemic inflammatory response syndrome) Hypotension, unspecified Chest pain, unspecified Hemopneumothorax on right Sacral fracture ASSESSMENT & PLAN q 6hrs troponin CT to suction Pain control Review CT scan of the chest (Images not available currently, will get them transferred elec tronically from [facility]) Patient does not need any surgical intervention for flail chest at this stage, as her sats are 98% on 2l O2 Continue ICU care for now Will continue to follow Code Status: Full Code Primary Care Physician: JACINTA JOHNSON Thank you for allowing me to participate in the care of this patient. SUZANNE LEON MD 01/06/2013 Jeffrey Cervantes MD - 01/06/2013 8:49 PM PDTFormatting of this note might be different from the orig inal. Consult* by Jeffrey Martinez MD at 01/06/131 Author: Jeffrey Martinez MD Service: (none) Author Type: Bonded Structures Repairer Filed: 01/06/132140 Date of Service: 01/06/132048 Status: Signed Electrical Engineering Draftsperson: Jeffrey Martinez MD (Bonded Structures Repairer) [facility] Service: Bonded Structures Repairer Initial Consult Note Kassi Maxwell 72 y.o. Date of Admission: 01/06/2013 Reason for Consultation: co management of trauma Requesting Physician: ella, General Surgery History Obtained From: patient, chart review HISTORY OF PRESENT ILLNESS The patient is a 72 y.o. female with significant past medical history of Htn, osteoporosis who presents with From [facility] in [place] s/p blunt chest trauma to the chest kicked by her own horse while she was trying to give it th eWNV vaccine. No LOC but ems michael the rto the ED where she was hemodynamically stable and then sbp woul d drop top the 80's with pain meds so she received 4 liters crystalloids. 2 liters nasal can riddhi, no malignant rhythm. Ct : multiple comminuted and depressed right rib fractures tilting the sternum, no clear cu t sternal fracture, substernal hematoma, small pericardial effusion, right ptx, right lung c ontusion, small pneumomediastinum, Right right hemothorax, left sacral fx, small amount of fluid in the left pelvis, likely blood per report. Ct spine neg for fx or malalignement Ct head neg for blood Sodium 140 k 4.1 Glucose 126 Bun 30 Creat1.06 Alcohol<10, amylase 43 Wbc 8 hct 40 plt 251 at 16:15 At 18:15 wbc 17 hct 31 plt 190 after 4 liters crysatalloids cpk 149 Tn ckmb 5.3 Index 3.6 hct at [facility] 29 plt 150 ecg at [facility]' 91 sr with qtc 479 with rbbb Repeat ecg at [facility]: 85 nsr with qtc 480 with rbbb, no previous ecg. She received a right chest tube with 300 cc of blood out , apparently 200 cc in our ed of f resh blood. Pt takes asa(to prevent strokes). She c/o chest pain when she breathes and low back pain mainly on the right and some chest d iscomfort overall, sy placed no hematuria macroscopically, mild nausea post fentanyl. Pt was in her usual state of health prior. Dr sue and armand (ortho) consulted as well as the icu team. REVIEW OF SYSTEMS Pertinent items are noted in HPI. PAST MEDICAL HISTORY: Past Medical History Diagnosis Date Hypertension Osteoporosis Rheumatoid arthritis PAST SURGICAL HISTORY: Past Surgical History Procedure Date Unlisted procedure arthroscopy Hysterectomy Back surgery MEDICATION ALLERGIES: Allergies Allergen Reactions Codeine Nausea and Vomiting Hydrocodone Nausea and Vomiting Morphine Nausea and Vomiting Propoxyphene Nausea and Vomiting MEDICATIONS PRIOR TO ADMISSION: (Not in a hospital admission) Scheduled Medications ondansetron 8 mg Intravenous Once ondansetron 8 mg Intravenous Once DISCONTD: ondansetron 8 mg Oral Once Continuous Infusions PRN Medications FAMILY HISTORY OF SIGNIFICANCE: No family history on file. SOCIAL HISTORY: History Social History Marital Status: Spouse Name: N/A Number of Children: N/A Years of Education: N/A Occupational History Not on file. Social History Main Topics Smoking status: Not on file Smokeless tobacco: Not on file Alcohol Use: No Drug Use: No Sexually Active: Other Topics Concern Not on file Social History Narrative No narrative on file PHYSICAL EXAM Vital Signs: BP 102/61 | Pulse 85 | Temp 98 F (36.7 C) | Resp 18 | Ht 1.753 m (5' 9.02") | Wt 51.256 kg (113 lb) | BMI 16.68 kg/m2 | SpO2 99% Temp: [98 F (36.7 C)] 98 F (36.7 C) (01/06 1931) BP: (80-102)/(56-66) 102/61 mmHg (01/06 2023) Heart Rate: [80-86] 85 (01/06 2023) Resp: [12-18] 18 (01/06 2023) SpO2: [95 %-100 %] 99 % (01/06 2023) Height: [175.3 cm (5' 9.02")] 175.3 cm (5' 9.02") (01/06 1935) Weight: [51.256 kg (113 lb)] 51.256 kg (113 lb) (01/06 1935) BMI (Calculated): [16.7] 16.7 (01/06 1935) EXAM GEN: Awake, alert, oriented x3, in mild pain but able to take acceptably deep breaths NEURO: PERRLA, EOMI, no facial asymmetry, speech normal, moves all extremities well GCS:15 HEENT: sclerae clear, nonicteric, oral mmm, pink, no exudates NECK: supple, trachea midline, no thyroidmegaly HEART: RRR, no murmur, rub or gallop LUNGS: decreased bs on the right, no wheezing, crackles or rhonchi, chest tube in place oj ining blood ABD: soft, nondistended, nontender to palpation, no masses, no hepatosplenomegaly EXTR: no edema, clubbing or cyanosis SKIN: warm, dry, no rash or mottling; no e/o skin breakdown over the occiput, scapulae, elb ows, sacrum or heels DATA Lab 01/06/13 1930 WBC 15.6* HGB 9.5* HCT 29.0* PLT 150 No results found for this basename: NA:3,K:3,CL:3,CO2:3,BUN:3,CREATININE:3,LABGLOM:3,GLUCOS E,CALCIUM:3 in the last 168 hours IMAGINGcxr reviewed.chest tube last opening is at the thoracic wall PROBLEM LIST Principal Problem: *Blunt chest trauma Active Problems: Fracture of rib with flail chest SIRS (systemic inflammatory response syndrome) Hypotension, unspecified Chest pain, unspecified Hemopneumothorax on right Sacral fracture ASSESSMENT & PLAN NEURO: Non focal exam, ct spine negative for fracture, no collar CARDIOVASCULAR: Blunt chest trauma:possible myocardial contusion with the rbbb and trop rise and small p ericardial effusion on the ct chest, stat echo ordered, dr berrios to read, dr leon on his w ay. No clinical signs of tamponade, sbp 105, hr 82. Small pneumomediastinum:follow Hypotension intiially sec to narcotic infusion probably in the setting of hypovolemia(no t shock) that responded to ivf PULMONARY: pulmonary contusion with right hemopneumothorax/flai chest: chesttube in place, we have already 300 cc in 2 hrs at [facility] out, will d/w dr leon further mgmnt including OR, inr p ending, plt ok. Risk of intubation substantial sec to pain and conjtusion, PATHOLOGY TEACHER dialudid, end tidal co2 on. GI: Npo, no e/o intraabdominal process RENAL: No macroscopic hematuria, no e/o rhabdo INFECTIOUS DISEASE: No e/o infection HEME: hct stabilized at 30 after 4 liters crystalloids, source of drop is dilution and right c hest bleeding. hct q 4. ENDOCRINE: endotool MUSCULOSKELETAL: Right sacral fracture:dr keene requested special xr of the hip, no indication of bleed ing there or bladder rupture PROPHYLAXIS: Stress ulcer prophylaxis-gerd, omeprazole(home) DVT prophylaxis-no heparin sec to hemothorax VAP: chlorhexadine oral care and HOB > 30 degrees Disposition:icu care as above, family updated at bedside. Code Status: No Order Primary Care Physician: JACINTA JOHNSON Thank you for allowing me to participate in the care of this patient. *Please bill 85 minutes of critical care time spent evaluating the patient, reviewing the d macario and formulating a plan exclusive of all other procedures. JEFFREY MARTINEZ MD 01/06/2013 8:49 PM documented in this e ncounter ED Notes Conversion Transaction, Provider Unknown - 01/06/2013 8:38 PM PDTFormatting of this note m ight be different from the original. ED Notes by Vicente Sears RN at 01/06/132037 Author: Vicente Sears RN Service: (none) Author Type: Registered Nurse Filed: 01/06/132041 Date of Service: 01/06/132037 Status: Signed Electrical Engineering Draftsperson: Vicente Sears RN (Registered Nurse) Pt resting quietly with c/c pain with respiration and some sob. Dr Torres at bedside Vicente Sears RN 01/06/132041 onver alex Transaction, Provider Unknown - 01/06/2013 8:24 PM PDT ED Notes by Vicente Sears RN at 01/06/132023 Author: Vicente Sears RN Service: (none) Author Type: Registered Nurse Filed: 01/06/132023 Date of Service: 01/06/132023 Status: Signed Electrical Engineering Draftsperson: Vicente Sears RN (Registered Nurse) Dr Sue at bedside Vicente Sears RN 01/06/132023 [place] on, Cayla Pagan MD - 01/06/2013 7:37 PM PDT ED Provider Notes by Cayla Munoz MD at 01/06/131936 Author: Cayla Munoz MD Service: (none) Author Type: Physician Filed: 01/07/13106 Date of Service: 01/06/131936 Status: Signed Electrical Engineering Draftsperson: Cayla Munoz MD (Physician) Procedure Orders: 1. Critical Care [[id number]] ordered by Sonya Gonzalez at 01/07/13 0012 [facility] Department of Emergency Medicine Pre-arrival Provider: [facility] Pertinent History and Concerns: Kicked in chest by horse. [place] scan negative except chest. Multiple right rib fractures, pneumothorax, hemothorax, sternal fracture, small pericardial effusion. Was hypotensive to 80's. Now 115/90 after fluid bolus. R chest tube being place d. Dr. Sue will admit. Dr. Leon will consult. Request EKG, cardiac enzymes on edilberto al. (01/06/131746 : CAYLA MUNOZ) History of Present Illness Patient Identification Kassi Maxwell is a 72 y.o. female. Patient information was obtained from patient and EMS personnel. History/Exam limitations: none. Patient presented to the Emergency Department by: Ambulance Chief Complaint Chief Complaint Patient presents with Chest Injury Pt was kicked in her chest by a horse. 7:41 PM. The patient complains of trauma to the chest. Pt was a transfer from [facility] in [place]. She was found to have multiple ribs fxs, PTs, hemothorax, sternal fx, and a small pericardial effusion. Injury occured earlier today, with a constant course since that time. Per EMS pt was kicked in the chest by a horse. The symptoms are described to be sever e. The patient also complains of nausea, lower back pain, dyspnea, and SOB. Pt has h/o chron ic back pain and arthritis. Pt is sensitive to narcotics. Per EMS, care prior to arrival co nsisted of dilaudid, fentanyl, placement of chest tube and 4 liters of fluid with partial re lief. Dr. Sue (trauma surgeon) and Dr. Leon (CV surgeon) are aware of the pt and Dr. Christina bloom will admit. Reviewed records from transferring facility: CT chest, abd and pelvis showed a L sacral fx, R rib fxs, sternal abnormality, substernal h ematoma, small pericardial effusion, small R PTX, R lung contusion, small pneumomediastinum, small R hemothorax, and a small amount of fluid in her R pelvis. CT head nl CT C-spine negative Labs: Nl creatinine H&H: 12.9 and 39.9, repeat was 10 and 35 PCP: JACINTA JOHNSON Past Medical History Diagnosis Date Hypertension Osteoporosis Rheumatoid arthritis Past Surgical History Procedure Date Unlisted procedure arthroscopy Hysterectomy Back surgery Prior to Admission medications Not on File Allergies Allergen Reactions Codeine Nausea and Vomiting Hydrocodone Nausea and Vomiting Morphine Nausea and Vomiting Propoxyphene Nausea and Vomiting History Social History Marital Status: Spouse Name: N/A Number of Children: N/A Years of Education: N/A Occupational History Not on file. Social History Main Topics Smoking status: Not on file Smokeless tobacco: Not on file Alcohol Use: No Drug Use: No Sexually Active: Other Topics Concern Not on file Social History Narrative No narrative on file No family history on file. CV/Resp: Positive for chest pain, SOB and dyspnea GI: Positive for nausea Musculoskeletal: Positive for lower back pain, chest wall pain ROS limited due to emergent situation. Physical Exam BP 96/66 | Pulse 86 | Temp 98 F (36.7 C) | Resp 16 | SpO2 96% Vitals: Hypotensive, otherwise WNL Pulse Oximetry interpretation: Normal General: Alert Eyes: Normal inspection, EOMI, PERRL ENT: Normal pharynx Neck: Supple no C-spine tenderness Chest: R side chest tube in place. Sternum and right chest tenderness. CV: Regular rate, rhythm. Normal heart tones. Respiratory: Airways intact. Breath sounds bilaterally Abdomen: Soft, non-tender, non-distended. No guarding or rebound Back: T-spine non-tender Extremities: Pelvis stable. Atraumatic, normal ROM, no significant lower extremity edema Skin: Warm, dry. Neuro: No gross focal deficits. Motor and sensory grossly intact Psych: Normal affect Medical Decision Making and Emergency Department Course ED Department Course Pt presents as a trauma, pt transferred from an outside facility. Modified trauma activatio n called. Significant chest injury as noted and chest tube placed. Pt had become hypotensive upon being given narcotics and was hypotensive upon arrival. Pt is mentating normally and h eart rate is stable. On review of records from outside facility, pt had chest trauma, sacral fracture, and some fluid in the pelvis. I will order an EKG, repeat chest xray, cardiac enz ymes, and type and screen. I will speak with Dr. Sue. 7:42 PM Discussed pt's case with Dr. Sue (Trauma Surgeon), he is aware of pt. I will contact Dr. Leon (Cardiovascular Surgery). Pt will be best suited in the ICU. 7:46 PM Notified transfer center that I anticipate admission to the ICU. 7:[address] Leon (Cardiovascular Surgery). Discussed pt's case. He will see the p t tonight. 7:[address] Martinez (casting agent). He is aware and will see the pt. 7:57 PM Pt recheck. Informed pt she will need to be admitted to the ICU and monitored closely. Furt her intervention may be required based on how she does. 8:16 PM Troponin resulted 2.90 8:23 PM Pt recheck. Pt reports feeling nausea. 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 8:[address] Shah (Ortho) who wants an AP Pelvis with inlet and outlet views. 8:47 PM Pt recheck. Informed pt that I talked to Dr. Shah (Ortho) who requested additional xray of pelvis and will consult with pt Records Reviewed Nursing notes. Records unavailable No prior [facility] ED visits for review in [facility]. Laboratory Evaluation Results Procedure Component Value Ref Range Date/Time CK MB [[id number]] (Abnormal) Collected:01/06/131929 Order Status:Completed Updated:01/06/132015 MMB 7.9 (H) 0.5 - 3.6 ng/mL CK-MB Index 4.8 CPK [[id number]] Collected:01/06/131929 Order Status:Completed Updated:01/06/132015 Specimen Information:Blood CPK 166 30 - 240 U/L Troponin I [[id number]] (Abnormal) Collected:01/06/131929 Order Status:Completed Updated:01/06/132015 Specimen Information:Blood TROPONIN I 2.90 (HH) 0.00 - 0.10 ng/mL CBC w Auto Diff [[id number]] (Abnormal) Collected:01/06/131929 Order Status:Completed Updated:01/06/132002 Specimen Information:Blood WBC 15.6 (H) 3.8 - 11.0 K/uL RBC 3.13 (L) 3.70 - 5.10 M/uL HGB 9.5 (L) 11.3 - 15.5 g/dL HCT 29.0 (L) 34.0 - 46.0 % MCV 92.7 80.0 - 100.0 fl MCH 30.3 27.0 - 34.0 pg MCHC 32.7 32.0 - 35.5 g/dL RDW SD 43.3 37 - 53 fl PLT 150 150 - 400 K/uL MPV 7.8 fl DIFF TYPE AUTOMATED NEUTROPHILS 86.7 (H) 40 - 75 % LYMPHOCYTES 7.1 (L) 15 - 48 % MONOCYTES 5.9 0 - 12 % EOSINOPHILS 0.2 0 - 7 % BASOPHILS 0.1 0 - 2 % NEUTROPHILS ABS 13.5 (H) 1.9 - 7.4 K/uL LYMPHOCYTES ABS 1.1 1.0 - 3.9 K/uL MONOCYTES ABS 0.9 (H) 0 - 0.8 K/uL EOSINOPHILS ABS 0.0 0 - 0.5 K/uL BASOPHILS ABS 0.0 0 - 0.1 K/uL Platelet Estimate ADEQUATE Diff Comment Result: SLIDE SCANNED, AGREES WITH AUTOMATED RESULTS. MORPHOLOGY RBC AND PLT MORPHOLOGY APPEAR NORMAL I personally reviewed the lab results and they have been posted to the chart. Pertinent po sitive and negative findings have been addressed appropriately. Radiology and EKG Evaluation Imaging Results XR Chest AP portable (Final result) Result time:01/06/132200 Final result by Rad Results In Bernard (01/06/13 20:01:19) Narrative: HISTORY: Injury to the chest. COMPARISON: 05/11/11. TECHNIQUE: Portable AP supine film of the chest at 1934 hrs. FINDINGS: Right chest tube in the central right lung castañeda. Right apical pneumothorax measures 10-m m. Atelectasis or contusion right lateral lung base. Poor definition of the anterior ribs due to osteopenia. I suspect right anterolateral mid rib fracture or fractures. Nodular de nsity left lateral lung base measuring 13 mm, probably from nipple shadow. Progress of the aeration is recommended. Heart size is normal. IMPRESSION: 1. Contusion versus atelectasis right lung base with right chest tube in place. 2. 10-mm right apical pneumothorax. 3. Probable anterior mid right rib fractures, poorly defined given the degree of osteopeni a. 4. Nodular left lung base probably from nipple shadow. Progress evaluation is recommended . Interpretation Documented by Jennifer Gannon (01/06/13 2201, [facility], Emergency Medicine) Chest tube in place proximal port at chest wall. Rib fx. no significant pneumothorax noted on CXR, R hemidiaphragm elevated. Viewed and interpreted by me: Cayla Munoz MD EKG Interpretation Performed at 1931. Normal sinus rhythm at 85 bpm. Normal CA interval. RBBB, NS ST T waves. Reviewed and interpreted by Cayla Munoz MD. ED Diagnoses Final diagnoses Flail chest Pneumothorax Hemothorax Sacral fracture Sternal fracture Hypotension Disposition: ED Disposition Admit/Observation Requested Unit:: ICU Bed request special needs: Telemetry Admitting Provider: ELZA SUE [[id number]] Diagnosis?: flail chest, pneumothorax, hemothorax, sacral fracture, sternal fracture, hypotension Follow-up Information None Discharge Medications: New Prescriptions No new medications Additional Documentation Critical Care Performed by: CAYLA MUNOZ Authorized by: ELZA SUE Total critical care time: 35 minutes Critical care time was exclusive of separately billable procedures and treating other patie nts. Critical care was necessary to treat or prevent imminent or life-threatening deterioration of the following conditions: trauma. Critical care was time spent personally by me on the following activities: development of t reatment plan with patient or surrogate, discussions with consultants, evaluation of patient 's response to treatment, examination of patient, obtaining history from patient or surrogat e, ordering and performing treatments and interventions, ordering and review of laboratory s tudies, ordering and review of radiographic studies, pulse oximetry, re-evaluation of patien t's condition and review of old charts. Attending Note: Documentation assistance provided by Jennifer Gannon (Scribe). Information recorded by the scribe has been reviewed and validated by me. Michael sevilla with its contents. MD Cayla Bartholomew MD 01/07/13106 onversion Transact ion, Provider Unknown - 01/06/2013 7:14 PM PDTFormatting of this note might be different fr om the original. ED Notes by Madai Chase RN at 01/06/131913 Author: Madai Chase RN Service: (none) Author Type: Registered Nurse Filed: 01/06/131913 Date of Service: 01/06/131913 Status: Signed Electrical Engineering Draftsperson: Madai Chase RN (Registered Nurse) Bed:07
Expected date:
Expected time:
Means of arrival:
Comments:
onver alex Transaction, Provider Unknown - 01/06/2013 7:07 PM PDT ED Notes by Ana Luisa Rice RN at 01/06/131906 Author: Ana Luisa Rice RN Service: (none) Author Type: Registered Nurse Filed: 01/06/131909 Date of Service: 01/06/131906 Status: Signed Electrical Engineering Draftsperson: Ana Luisa Rice RN (Registered Nurse) Fanny WEBB from [facility] calls with report on 72yo female kicked in chest by horse, CT rio wed flail chest on Right side, tilted sternum, plearal effusion and pressure on heart, last VS 114/66, 20 rr, 95% on 2 L, 52 hr, 3 L of NS chest tube 28cm which put out 400mml of bloo d, she has a sacral fx is A&O x4, has two IV 16 and 18gu Ana Luisa Rice RN 01/06/131909 docume nted in this encounter Plan of Treatment +--------+---------+ + + + | Date | Type | Specialty | Care Team | Description | +--------+---------+ + + + | 02/17/ | Office | Rheumatology | Lonnie aMndel | | | 2020 | Visit | | MD William [address] | | | | | [facility] | | | | | | [place] [address] | | | | | | [phone] | | | | | | | | +--------+---------+ + + + documented as of this encounter Procedures + +--------+ + + + | Procedure Name | Priori | Date/Time | Associated Diagnosis | Comments | | | ty | | | | + +--------+ + + + | EXTERNAL LAB: OCCULT | Timed | 01/11/2013 | | Results for this | | BLOOD, SCREENING | | 10:02 AM | | procedure are in the | | | | PDT | | results section. | + +--------+ + + + | XR CHEST 2 VIEWS | Routin | 01/11/2013 | | Results for this | | | e | 8:14 AM | | procedure are in the | | | | PDT | | results section. | + +--------+ + + + | CULTURE, URINE | Timed | 01/10/2013 | | Results for this | | | | 11:08 PM | | procedure are in the | | | | PDT | | results section. | + +--------+ + + + | XR CHEST 1 VIEW | Routin | 01/10/2013 | | Results for this | | | e | 9:34 AM | | procedure are in the | | | | PDT | | results section. | + +--------+ + + + | XR CHEST 1 VIEW | Routin | 01/10/2013 | | Results for this | | | e | 5:43 AM | | procedure are in the | | | | PDT | | results section. | + +--------+ + + + | XR CHEST 1 VIEW | Routin | 01/09/2013 | | Results for this | | | e | 5:45 AM | | procedure are in the | | | | PDT | | results section. | + +--------+ + + + | XR CHEST 1 VIEW | Routin | 01/08/2013 | | Results for this | | | e | 5:00 AM | | procedure are in the | | | | PDT | | results section. | + +--------+ + + + | XR CHEST 1 VIEW | Routin | 01/07/2013 | | Results for this | | | e | 9:37 PM | | procedure are in the | | | | PDT | | results section. | + +--------+ + + + | ECG 12 LEAD | Routin | 01/07/2013 | | Results for this | | | e | 3:51 PM | | procedure are in the | | | | PDT | | results section. | + +--------+ + + + | ECHO COMPLETE | Routin | 01/07/2013 | | Results for this | | | e | 7:00 AM | | procedure are in the | | | | PDT | | results section. | + +--------+ + + + | XR PELVIS COMPLETE 3 | Routin | 01/07/2013 | | Results for this | | + VW | e | 6:11 AM | | procedure are in the | | | | PDT | | results section. | + +--------+ + + + | ECG 12 LEAD | Routin | 01/07/2013 | | Results for this | | | e | 5:46 AM | | procedure are in the | | | | PDT | | results section. | + +--------+ + + + | XR CHEST 1 VIEW | Routin | 01/07/2013 | | Results for this | | | e | 5:00 AM | | procedure are in the | | | | PDT | | results section. | + +--------+ + + + | MRSA NAAT | Timed | 01/06/2013 | | Results for this | | | | 10:16 PM | | procedure are in the | | | | PDT | | results section. | + +--------+ + + + | XR CHEST 1 VIEW | Routin | 01/06/2013 | | Results for this | | | e | 7:38 PM | | procedure are in the | | | | PDT | | results section. | + +--------+ + + + | ECG 12 LEAD | Routin | 01/06/2013 | | Results for this | | | e | 7:31 PM | | procedure are in the | | | | PDT | | results section. | + +--------+ + + + | XR CHEST 1 VIEW | Routin | 01/06/2013 | | Results for this | | | e | 6:21 PM | | procedure are in the | | | | PDT | | results section. | + +--------+ + + + | CT CHEST ABDOMEN | Routin | 01/06/2013 | | Results for this | | PELVIS W CONTRAST | e | 4:48 PM | | procedure are in the | | | | PDT | | results section. | + +--------+ + + + | CT CERVICAL SPINE WO | Routin | 01/06/2013 | | Results for this | | CONTRAST | e | 4:41 PM | | procedure are in the | | | | PDT | | results section. | + +--------+ + + + | CT HEAD WO CONTRAST | Routin | 01/06/2013 | | Results for this | | | e | 4:39 PM | | procedure are in the | | | | PDT | | results section. | + +--------+ + + + | XR CHEST 1 VIEW | Routin | 01/06/2013 | | Results for this | | | e | 4:17 PM | | procedure are in the | | | | PDT | | results section. | + +--------+ + + + documented in this encounter Results External Lab: Occult Blood, Screening (01/11/2013 10:02 AM PDT) + + | Specimen | + + | Stool specimen | | (specimen) | + + + + + | Narrative | Performed At | + + + | Fecal Occult Blood NEGATIVE Testing | EXTERNAL LAB | | performed at [facility];[address];[place] [address] | | + + + + +---------+ + + | Performing | Address | City/State/Zipcode | Phone Number | | Organization | | | | + +---------+ + + | EXTERNAL LAB | | | | + +---------+ + + XR Chest 2 Vws (01/11/2013 8:14 AM PDT) + + | Specimen | + + | | + + + + + | Narrative | Performed At | + + + | KASSI MAXWELL XR CHEST 2 VIEW FRONTAL AND LATERAL 01/11/2013 8:08 | | | AM HISTORY: Trauma to the chest. TECHNIQUE: Two views of | | | the chest. FINDINGS: Compared with January 10, 2013. The left IJ | | | central venous catheter tip overlies the azygos vein on the frontal | | | view and deviates posteriorly on the lateral view, consistent with the | | | tip in the azygos vein. This may or may not be satisfactory. | | | Correlate clinically. There is a persistent mild to moderate | | | right pleural effusion and a minimal left pleural effusion seen on the | | | lateral view. Mild bibasilar atelectasis persists. The small | | | right apical pneumothorax has decreased to 5 mm. IMPRESSION: 1. | | | Decreasing small right apical pneumothorax. 2. Tip of the central | | | line is in the azygos vein, an atypical position. 3. Persistent | | | bilateral pleural effusions, right larger than left. 4. Persistent | | | mild bibasilar atelectasis. | | + + + + + | Procedure Note | + + | Bernard, Rad Conversion - 01/26/2019 3:20 PM PDT KASSI Chris SHUPEXR CHEST 2 VIEW FRONTAL | | AND LATERAL01/11/2013 8:08 AM HISTORY:Trauma to the chest. TECHNIQUE:Two views of the | | chest. FINDINGS:Compared with January 10, 2013. The left IJ central venous catheter tip | | overlies the azygos vein on the frontal view and deviates posteriorly on the lateral | | view, consistent with the tip in the azygos vein. This may or may not be satisfactory. | | Correlate clinically. There is a persistent mild to moderate right pleural effusion | | and a minimal left pleural effusion seen on the lateral view. Mild bibasilar | | atelectasis persists. The small right apical pneumothorax has decreased to 5 mm. | | IMPRESSION:1. Decreasing small right apical pneumothorax.2. Tip of the central line is | | in the azygos vein, an atypical position.3. Persistent bilateral pleural effusions, | | right larger than left.4. Persistent mild bibasilar atelectasis. | |may not be satisfactory. Correlate | | clinically. There is a persistent mild to moderate right pleural effusion and a minimal l eft pleural effusion seen on the lateral view. Mild bibasilar atelectasis persists. The sm all right apical pneumothorax has decreased to 5 mm. | | | |IMPRESSION: | |1. Decreasing small right apical pneumothorax. | |2. Tip of the central line is in the azygos vein, an atypical position. | |3. Persistent bilateral pleural effusions, right larger than left. | |4. Persistent mild bibasilar atelectasis. | | | | | + + Culture, Urine (01/10/2013 11:08 PM PDT) + + | Specimen | + + | | + + + + + | Narrative | Performed At | + + + | Specimen Description URINE, COLLECTION NOT | EXTERNAL LAB | | GIVEN Testing | | | performed at [facility], [address], [place] [address] | | | CULTURE >100,000 CFU/ML | | | KLEBSIELLA PNEUMONIAEAbnormal | | | Testing performed at [facility], [address], | | | [place] [address] REPORT STATUS | | | 01/13/2013 FINAL Organism | | | KLEBSIELLA PNEUMONIAE Suscepibility for - KLEBSIELLA PNEUMONIAE | | | Ampicillin RESISTANT Resistant | | | Ampicillin + Sulbactam SUSCEPTIBLESensitive Cefazolin | | | SUSCEPTIBLESensitive Cefepime | | | SUSCEPTIBLESensitive Cefoxitin | | | SUSCEPTIBLESensitive Ceftazidime | | | SUSCEPTIBLESensitive Ceftriaxone | | | SUSCEPTIBLESensitive Ciprofloxacin | | | SUSCEPTIBLESensitive Gentamicin | | | SUSCEPTIBLESensitive Piperacillin + Tazobactam | | | SUSCEPTIBLESensitive Tobramycin | | | SUSCEPTIBLESensitive Trimethoprim + | | | SulfamethoxazoleSUSCEPTIBLESensitive Nitrofurantoin | | | INTERMEDIATEIntermediate Levofloxacin | | | SUSCEPTIBLESensitive | | + + + + +---------+ + + | Performing | Address | City/State/Zipcode | Phone Number | | Organization | | | | + +---------+ + + | EXTERNAL LAB | | | | + +---------+ + + XR Chest 1 Vw (01/10/2013 9:34 AM PDT) + + | Specimen | + + | | + + + + + | Narrative | Performed At | + + + | KASSI MAXWELL XR CHEST 1 VIEW 01/10/2013 8:58 AM HISTORY: | | | Trauma. TECHNIQUE: One view chest. FINDINGS: Compared with | | | January 10, 2013 at 0527 hrs. There is a left IJ central venous | | | catheter in place and the distal end is curved over the azygos vein. | | | The tip of the catheter is therefore likely positioned within the | | | azygos vein, atypical. Would suggest a PA and lateral chest x-ray | | | for further evaluation. A small right apical pneumothorax has | | | developed measuring 10 mm in thickness. The right pleural drain has | | | been removed. There is persistent mild bibasilar atelectasis. | | | IMPRESSION: 1. Small right pneumothorax following pleural drain | | | removal. 2. The tip of the central venous catheter has probably | | | flipped into the azygos vein. A PA and lateral chest x-ray may be | | | helpful. 3. Persistent mild bibasilar atelectasis. | | | | | + + + + + | Procedure Note | + + | Klaus Wagner Conversion - 01/26/2019 3:20 PM PDT KSASI Perez SHUPEXR CHEST 1 VIEW01/10/2013 | | 8:58 AM HISTORY:Trauma. TECHNIQUE:One view chest. FINDINGS:Compared with January 10, 2013 | | at 0527 hrs. There is a left IJ central venous catheter in place and the distal end is | | curved over the azygos vein. The tip of the catheter is therefore likely positioned | | within the azygos vein, atypical. Would suggest a PA and lateral chest x-ray for | | further evaluation. A small right apical pneumothorax has developed measuring 10 mm in | | thickness. The right pleural drain has been removed. There is persistent mild | | bibasilar atelectasis. IMPRESSION:1. Small right pneumothorax following pleural drain | | removal.2. The tip of the central venous catheter has probably flipped into the azygos | | vein. A PA and lateral chest x-ray may be helpful.3. Persistent mild bibasilar | | atelectasis. | |Compared with January 10, 2013 at 0527 hrs. There is a left IJ central venous catheter in pl [place] and the distal end is curved over the azygos vein. The tip of the catheter is therefore likely positioned within the | |azygos vein, atypical. Would suggest a | |PA and lateral chest x-ray for further evaluation. | | | |A small right apical pneumothorax has developed measuring 10 mm in thickness. The right pl eural drain has been removed. There is persistent mild bibasilar atelectasis. | | | |IMPRESSION: | |1. Small right pneumothorax following pleural drain removal. | |2. The tip of the central venous catheter has probably flipped into the azygos vein. A PA and lateral chest x-ray may be helpful. | |3. Persistent mild bibasilar atelectasis. | | | | | + + XR Chest 1 Vw (01/10/2013 5:43 AM PDT) + + | Specimen | + + | | + + + + + | Narrative | Performed At | + + + | KASSI MAXWELL XR CHEST 1 VIEW 01/10/2013 5:34 AM HISTORY: | | | Tube placement. TECHNIQUE: One view chest. FINDINGS: | | | Compared with January 09, 2013. Central line tip is in the SVC. | | | Right pleural drain is unchanged in position. Minimal bibasilar | | | atelectasis is unchanged. No acute airspace infiltrates are | | | identified. No pneumothorax. IMPRESSION: 1. Stable chest | | | compared with prior examination. | | + + + + + | Procedure Note | + + | Bernard, Rad Conversion - 01/26/2019 3:20 PM PDT KASSI CASTILLOEXLatasha CHEST 1 VIEW01/10/2013 | | 5:34 AM HISTORY:Tube placement. TECHNIQUE:One view chest. FINDINGS:Compared with January | | 2012. Central line tip is in the SVC. Right pleural drain is unchanged in | | position. Minimal bibasilar atelectasis is unchanged. No acute airspace infiltrates | | are identified. No pneumothorax. IMPRESSION:1. Stable chest compared with prior | | examination. | | | |TECHNIQUE: | |One view chest. | | | |FINDINGS: | |Compared with January 09, 2013. Central line tip is in the SVC. Right pleural drain is unch anged in position. Minimal bibasilar atelectasis is unchanged. No acute airspace infiltrat es are identified. No pneumothorax. | | | |IMPRESSION: | |1. Stable chest compared with prior examination. | | | | | + + XR Chest 1 Vw (01/09/2013 5:45 AM PDT) + + | Specimen | + + | | + + + + + | Narrative | Performed At | + + + | KASSI MAXWELL XR CHEST 1 VIEW 01/09/2013 5:30 AM HISTORY: | | | Tube placement. TECHNIQUE: One view chest. FINDINGS: | | | Compared with January 08, 2013. The small right apical pneumothorax is | | | no longer visualized. The right pleural drain remains in place. | | | Central line is unchanged in position. Mild bibasilar atelectasis | | | is unchanged. No significant pleural effusion is noted. | | | IMPRESSION: 1. Resolving small right apical pneumothorax with | | | pleural drain in place. 2. Persistent mild bibasilar atelectasis. | | | | | | AM | | + + + + + | Procedure Note | + + | Bernard, Rad Conversion - 01/26/2019 3:20 PM PDT KASSI Perez JAYUPEXR CHEST 1 VIEW01/09/2013 | | 5:30 AM HISTORY:Tube placement. TECHNIQUE:One view chest. FINDINGS:Compared with January. The small right apical pneumothorax is no longer visualized. The right | | pleural drain remains in place. Central line is unchanged in position. Mild bibasilar | | atelectasis is unchanged. No significant pleural effusion is noted. IMPRESSION:1. | | Resolving small right apical pneumothorax with pleural drain in place.2. Persistent | | mild bibasilar atelectasis. | | 7:23 AM | |One view chest. | | | |FINDINGS: | |Compared with January 08, 2013. The small right apical pneumothorax is no longer visualized. The right pleural drain remains in place. Central line is unchanged in position. Mild bi basilar atelectasis is unchanged. | |No significant pleural effusion is | |noted. | | | |IMPRESSION: | |1. Resolving small right apical pneumothorax with pleural drain in place. | |2. Persistent mild bibasilar atelectasis. | | | | | + + XR Chest 1 Vw (01/08/2013 5:00 AM PDT) + + | Specimen | + + | | + + + + + | Narrative | Performed At | + + + | KASSI MAXWELL XR CHEST 1 VIEW 01/08/2013 4:55 AM HISTORY: | | | Follow-up pneumothorax. Chest pain. TECHNIQUE: One view of the | | | chest. FINDINGS: Compared with January 07, 2013. The small right | | | apical pneumothorax has decreased and now measures 15 mm in thickness. | | | The right pleural drain remains in place. Central line is | | | unchanged in position. There is persistent mild bibasilar | | | atelectasis, right greater than left. Heart size appears normal. | | | IMPRESSION: 1. Decreasing small right pneumothorax. No other | | | significant change. | | + + + + + | Procedure Note | + + | Bernard, Rad Conversion - 01/26/2019 3:20 PM PDT KASSI Perez ANNAEXR CHEST 1 VIEW01/08/2013 | | 4:55 AM HISTORY:Follow-up pneumothorax. Chest pain. TECHNIQUE:One view of the chest. | | FINDINGS:Compared with January 07, 2013. The small right apical pneumothorax has | | decreased and now measures 15 mm in thickness. The right pleural drain remains in | | place. Central line is unchanged in position. There is persistent mild bibasilar | | atelectasis, right greater than left. Heart size appears normal. IMPRESSION:1. | | Decreasing small right pneumothorax. No other significant change. | |One view of the chest. | | | |FINDINGS: | |Compared with January 07, 2013. The small right apical pneumothorax has decreased and now me asures 15 mm in thickness. The right pleural drain remains in place. Central line is uncha nged in position. There is persistent mild bibasilar atelectasis, | |right greater than left. Heart size appears normal. | | | |IMPRESSION: | |1. Decreasing small right pneumothorax. No other significant change. | | | | | + + XR Chest 1 Vw (01/07/2013 9:37 PM PDT) + + | Specimen | + + | | + + + + + | Narrative | Performed At | + + + | HISTORY: Central line placement. COMPARISON: 01/07/13. | | | TECHNIQUE: Portable AP upright film the chest at 2134 hrs. | | | FINDINGS: New left IJ central line tip mid SVC, without pneumothorax | | | on the left. Persistent right apical pneumothorax measures 2.1 cm, | | | unchanged. Lateral right basilar chest tube, with elevation right | | | hemidiaphragm, and right basilar atelectasis extending into the | | | right perihilar region again noted. Heart size is normal. Minimal | | | left basilar atelectasis. IMPRESSION: 1. Left IJ central line | | | placement with tip in the mid SVC, without left pneumothorax. 2. | | | Persistent 2.1-cm right apical pneumothorax with right chest tube | | | again noted. 3. Right perihilar and basilar atelectasis. 4. | | | Minimal left basilar atelectasis. | | + + + + + | Procedure Note | + + | Bernard, Rad Conversion - 01/26/2019 3:20 PM PDT HISTORY:Central line placement. | | COMPARISON:01/07/13. TECHNIQUE:Portable AP upright film the chest at 2134 hrs. | | FINDINGS:New left IJ central line tip mid SVC, without pneumothorax on the left. | | Persistent right apical pneumothorax measures 2.1 cm, unchanged. Lateral right basilar | | chest tube, with elevation right hemidiaphragm, and right basilar atelectasis extending | | into the right perihilar region again noted. Heart size is normal. Minimal left basilar | | atelectasis. IMPRESSION:1. Left IJ central line placement with tip in the mid SVC, | | without left pneumothorax.2. Persistent 2.1-cm right apical pneumothorax with right | | chest tube again noted.3. Right perihilar and basilar atelectasis.4. Minimal left | | basilar atelectasis. | |New left IJ central line tip mid SVC, without pneumothorax on the left. Persistent right a pical pneumothorax measures 2.1 cm, unchanged. Lateral right basilar chest tube, with eleva tion right hemidiaphragm, and right | |basilar atelectasis extending into | |the right perihilar region again noted. Heart size is normal. Minimal left basilar atelect asis. | | | |IMPRESSION: | |1. Left IJ central line placement with tip in the mid SVC, without left pneumothorax. | |2. Persistent 2.1-cm right apical pneumothorax with right chest tube again noted. | |3. Right perihilar and basilar atelectasis. | |4. Minimal left basilar atelectasis. | | | | | + + ECG 12 lead (01/07/2013 3:51 PM PDT) + + + + + + | Component | Value | Ref Range | Performed | Pathologist | | | | | At | Signature | + + + + + + | DIAGNOSIS: | Normal sinus rhythmLeft | | EXTERNAL | | | | atrial abnormalityRight | | LAB | | | | bundle branck block, | | | | | | completeAbnormal ECGWhen | | | | | | compared with ECG of | | | | | | 07-JAN-2013 05:46,No | | | | | | significant change was | | | | | | foundConfirmed by YASH, | | | | | | OMER ([id number]) on 01/08/2013 | | | | | | 4:16:03 PM | | | | + + + + + + + + | Specimen | + + | | + + + + + | Narrative | Performed At | + + + | [facility] environment | EXTERNAL LAB | + + + + +---------+ + + | Performing | Address | City/State/Zipcode | Phone Number | | Organization | | | | + +---------+ + + | EXTERNAL LAB | | | | + +---------+ + + ECHO Complete (01/07/2013 7:00 AM PDT) + + | Specimen | + + | | + + + + + | Narrative | Performed At | + + + | Patient Name: KASSI MAXWELL Date of : 1940 | | | Performing Physician: Johnson Berrios MD | | | | | | INDICATIONS CONCLUSIONS 1. There is | | | a small generalized pericardial effusion without tamponade. 2. LV | | | dimensions NML, LV hyperdynamic, Grade I diastolic abnormality, LVEF | | | >70%. RV NML. LA/RA NML. Appear underfilled. 3. Aortic valve | | | mildly sclerotic, no /AI. Mitral valve grossly NML. Tricuspid | | | valve grossly NML, mild TR. Pulmonic valve not seen well. 4. | | | Moderate Pulmonary HTN, est systolic PAP 50-55mmHg. FINDINGS | | | -------- [no group]: There is pericardial effusion seen. ECG rhythm: | | | Sinus rhythm. Study: This was a technically adequate study. Left | | | Ventricle: Left Ventricle ejection fraction by m-mode measures 89%. | | | Left Ventricle: The left ventricle cavity size is normal. Left | | | Ventricle: Left ventricular wall thickness is normal. Left Ventricle: | | | The diastolic filling pattern indicates impaired relaxation | | | consistent with mild dysfunction (Grade I). Right Ventricle: The | | | right ventricle is normal in size and function. Left Atrium: The left | | | atrium is normal in size. Right Atrium: The right atrium is normal | | | in size. Aortic Valve: The aortic valve is trileaflet and appears | | | structurally normal. Aortic Valve: There is mild aortic valve | | | sclerosis without stenosis. Mitral Valve: The mitral valve is normal. | | | Tricuspid Valve: The tricuspid valve appears structurally normal. | | | Tricuspid Valve: Mild tricuspid regurgitation present. Pulmonic | | | Valve: The pulmonic valve was not well visualized. Pulmonic Valve: | | | Trace pulmonic regurgitation. Pericardium: There is a small, | | | generalized pericardial effusion present. Pericardium: There is no | | | evidence of cardiac tamponade. IVC/Hepatic Veins: The IVC is normal | | | size (1.5-2.5cm) and collapses <50% with sniff, consistent with | | | central venous pressures of 10-15mmHg. Mass: No mass visualized | | | MEASUREMENTS IVC: 1.65 cm LA Major: 2.90 cm | | | EDV(Teich): 53.38 ml IVSd: 0.96 cm LVIDd: 3.57 cm LVPWd: | | | 1.05 cm LVOT Diam: 1.97 cm %FS: 59.89 % EF(Teich): | | | 89.94 % ESV(Teich): 5.36 ml IVSs: 1.44 cm LVIDs: 1.43 cm | | | LVPWs: 1.54 cm SV(Teich): 48.01 ml RA Major: 3.03 cm | | | RVIDd: 2.55 cm LAESV(A-L): 13.82 ml LAESV Index (A-L): 8.53 | | | ml/m2 LAAs A2C: 7.42 cm2 LAESV A-L A2C: 15.13 ml LALs A2C: | | | 3.09 cm LAAs A4C: 6.77 cm2 LAESV A-L A4C: 12.61 ml LALs | | | A4C: 3.08 cm Ao Diam: 3.54 cm AV Cusp: 2.02 cm LA Diam: | | | 1.84 cm LA/Ao: 0.51 %FS: 58.33 % EDV(Teich): 59.81 ml | | | EF(Teich): 88.77 % ESV(Teich): 6.71 ml IVSd: 0.78 cm IVSs: | | | 1.13 cm LVIDd: 3.74 cm LVIDs: 1.56 cm LVPWd: 0.78 cm | | | LVPWs: 1.32 cm SV(Teich): 53.10 ml HR: 84.09 BPM AV maxPG: | | | 14.57 mmHg AV meanP.38 mmHg AV Vmax: 1.90 m/s AV | | | Vmean: 1.37 m/s AV VTI: 36.01 cm TRISH Vmax: 2.30 cm2 TRISH | | | (VTI): 2.12 cm2 LVCI Dopp: 3.97 l/minm2 LVCO Dopp: 6.43 | | | l/min HR: 84.09 BPM LVOT maxP.27 mmHg LVOT meanPG: | | | 4.35 mmHg LVSI Dopp: 47.26 ml/m2 LVSV Dopp: 76.57 ml LVOT | | | Vmax: 1.43 m/s LVOT Vmean: 0.98 m/s LVOT VTI: 25.01 cm | | | MCO: 340.11 ms MV A Santino: 0.88 m/s MV DecT: 221.06 ms MV E | | | Santino: 0.74 m/s MV E/A Ratio: 0.84 MV PHT: 51.67 ms MVA By | | | PHT: 4.25 cm2 MV A Dur: 129.39 ms Septal e': 0.06 m/s | | | Septal E/e': 10.99 Lateral e': 0.05 m/s Lateral E/e': 14.56 | | | P Vein A: 0.38 m/s P Vein A Dur: 99.81 ms HR: 81.96 BPM | | | PV maxP.88 mmHg PV meanP.87 mmHg PV Vmax: 1.10 m/s | | | PV Vmean: 0.59 m/s PV VTI: 15.15 cm TR maxP.29 mmHg | | | TR Vmax: 3.17 m/s TV A Santino: 0.50 m/s TV Dec [place]: 2.37 | | | m/s2 TV Dec Time: 229.28 ms TV E Santino: 0.54 m/s TV E/A Ratio: | | | 1.08 Software Test Analyst: [email or web address] Authenticated by: Johnson Berrios MD | | | Report Date/Time: 01-06-2013 23:43:33 | | + + + + + | Procedure Note | + + | Bernard, Rad Conversion - 01/26/2019 3:20 PM PDT Patient Name: Dunia MAXWELL of | | : 1940 Performing Physician: Johnson Berrios | | MD INDICATIONS | | CONCLUSIONS 1. There is a small generalized pericardial effusion without | | tamponade. 2. LV dimensions NML, LV hyperdynamic, Grade I diastolic abnormality, LVEF | | >70%. RV NML. LA/RA NML. Appear underfilled. 3. Aortic valve mildly sclerotic, no | | /AI. Mitral valve grossly NML. Tricuspid valve grossly NML, mild TR. Pulmonic valve | | not seen well. 4. Moderate Pulmonary HTN, est systolic PAP 50-55mmHg. | | FINDINGS--------[no group]: There is pericardial effusion seen.ECG rhythm: Sinus | | rhythm.Study: This was a technically adequate study.Left Ventricle: Left Ventricle | | ejection fraction by m-mode measures 89%.Left Ventricle: The left ventricle cavity size | | is normal.Left Ventricle: Left ventricular wall thickness is normal.Left Ventricle: The | | diastolic filling pattern indicates impaired relaxation consistent with mild dysfunction | | (Grade I).Right Ventricle: The right ventricle is normal in size and function.Left | | Atrium: The left atrium is normal in size.Right Atrium: The right atrium is normal in | | size.Aortic Valve: The aortic valve is trileaflet and appears structurally normal.Aortic | | Valve: There is mild aortic valve sclerosis without stenosis.Mitral Valve: The mitral | | valve is normal.Tricuspid Valve: The tricuspid valve appears structurally | | normal.Tricuspid Valve: Mild tricuspid regurgitation present.Pulmonic Valve: The | | pulmonic valve was not well visualized.Pulmonic Valve: Trace pulmonic | | regurgitation.Pericardium: There is a small, generalized pericardial effusion | | present.Pericardium: There is no evidence of cardiac tamponade.IVC/Hepatic Veins: The | | IVC is normal size (1.5-2.5cm) and collapses <50% with sniff, consistent with central | | venous pressures of 10-15mmHg.Mass: No mass visualized MEASUREMENTS IVC: | | 1.65 cmLA Major: 2.90 cmEDV(Teich): 53.38 mlIVSd: 0.96 cmLVIDd: 3.57 cmLVPWd: | | 1.05 cmLVOT Diam: 1.97 cm%FS: 59.89 %EF(Teich): 89.94 %ESV(Teich): 5.36 mlIVSs: | | 1.44 cmLVIDs: 1.43 cmLVPWs: 1.54 cmSV(Teich): 48.01 mlRA Major: 3.03 cmRVIDd: | | 2.55 cmLAESV(A-L): 13.82 mlLAESV Index (A-L): 8.53 ml/m2LAAs A2C: 7.42 [id number] | | A-L A2C: 15.13 mlLALs A2C: 3.09 cmLAAs A4C: 6.77 [id number] A-L A4C: 12.61 mlLALs | | A4C: 3.08 cmAo Diam: 3.54 cmAV Cusp: 2.02 cmLA Diam: 1.84 cmLA/Ao: 0.51%FS: | | 58.33 %EDV(Teich): 59.81 mlEF(Teich): 88.77 %ESV(Teich): 6.71 mlIVSd: 0.78 | | cmIVSs: 1.13 cmLVIDd: 3.74 cmLVIDs: 1.56 cmLVPWd: 0.78 cmLVPWs: 1.32 | | cmSV(Teich): 53.10 mlHR: 84.09 BPMAV maxP.57 mmHgAV meanP.38 mmHgAV | | Vmax: 1.90 m/Ti Vmean: 1.37 m/Ti VTI: 36.01 cmAVA Vmax: 2.30 cm2AVA (VTI): | | 2.12 [id number] Dopp: 3.97 l/[id number] Dopp: 6.43 l/minHR: 84.09 BPMLVOT maxPG: | | 8.27 mmHgLVOT meanP.35 mmHgLVSI Dopp: 47.26 ml/m2LVSV Dopp: 76.57 mlLVOT Vmax: | | 1.43 m/sLVOT Vmean: 0.98 m/sLVOT VTI: 25.01 cmMCO: 340.11 msMV A Santino: 0.88 | | m/sMV DecT: 221.06 msMV E Santino: 0.74 m/sMV E/A Ratio: 0.84MV PHT: 51.67 msMVA By | | PHT: 4.25 cm2MV A Dur: 129.39 msSeptal e': 0.06 m/sSeptal E/e': 10.99Lateral e': | | 0.05 m/sLateral E/e': 14.56P Vein A: 0.38 m/sP Vein A Dur: 99.81 msHR: 81.96 | | BPMPV maxP.88 mmHgPV meanP.87 mmHgPV Vmax: 1.10 m/sPV Vmean: 0.59 m/sPV | | VTI: 15.15 cmTR maxP.29 mmHgTR Vmax: 3.17 m/sTV A Santino: 0.50 m/sTV Dec | | [place]: 2.37 m/s2TV Dec Time: 229.28 msTV E Santino: 0.54 m/sTV E/A Ratio: 1.08 | | Software Test Analyst: [email or web address] by: Jonhson Berrios MDReport Date/Time: 01-06-2013 23:43:33 | |IVC: 1.65 cm | |LA Major: 2.90 cm | |EDV(Teich): 53.38 ml | |IVSd: 0.96 cm | |LVIDd: 3.57 cm | |LVPWd: 1.05 cm | |LVOT Diam: 1.97 cm | |%FS: 59.89 % | |EF(Teich): 89.94 % | |ESV(Teich): 5.36 ml | |IVSs: 1.44 cm | |LVIDs: 1.43 cm | |LVPWs: 1.54 cm | |SV(Teich): 48.01 ml | |RA Major: 3.03 cm | |RVIDd: 2.55 cm | |LAESV(A-L): 13.82 ml | |LAESV Index (A-L): 8.53 ml/m2 | |LAAs A2C: 7.42 cm2 | |LAESV A-L A2C: 15.13 ml | |LALs A2C: 3.09 cm | |LAAs A4C: 6.77 cm2 | |LAESV A-L A4C: 12.61 ml | |LALs A4C: 3.08 cm | |Ao Diam: 3.54 cm | |AV Cusp: 2.02 cm | |LA Diam: 1.84 cm | |LA/Ao: 0.51 | |%FS: 58.33 % | |EDV(Teich): 59.81 ml | |EF(Teich): 88.77 % | |ESV(Teich): 6.71 ml | |IVSd: 0.78 cm | |IVSs: 1.13 cm | |LVIDd: 3.74 cm | |LVIDs: 1.56 cm | |LVPWd: 0.78 cm | |LVPWs: 1.32 cm | |SV(Teich): 53.10 ml | |HR: 84.09 BPM | |AV maxP.57 mmHg | |AV meanP.38 mmHg | |AV Vmax: 1.90 m/s | |AV Vmean: 1.37 m/s | |AV VTI: 36.01 cm | |TRISH Vmax: 2.30 cm2 | |TRISH (VTI): 2.12 cm2 | |LVCI Dopp: 3.97 l/minm2 | |LVCO Dopp: 6.43 l/min | |HR: 84.09 BPM | |LVOT maxP.27 mmHg | |LVOT meanP.35 mmHg | |LVSI Dopp: 47.26 ml/m2 | |LVSV Dopp: 76.57 ml | |LVOT Vmax: 1.43 m/s | |LVOT Vmean: 0.98 m/s | |LVOT VTI: 25.01 cm | |MCO: 340.11 ms | |MV A Santino: 0.88 m/s | |MV DecT: 221.06 ms | |MV E Santino: 0.74 m/s | |MV E/A Ratio: 0.84 | |MV PHT: 51.67 ms | |MVA By PHT: 4.25 cm2 | |MV A Dur: 129.39 ms | |Septal e': 0.06 m/s | |Septal E/e': 10.99 | |Lateral e': 0.05 m/s | |Lateral E/e': 14.56 | |P Vein A: 0.38 m/s | |P Vein A Dur: 99.81 ms | |HR: 81.96 BPM | |PV maxP.88 mmHg | |PV meanP.87 mmHg | |PV Vmax: 1.10 m/s | |PV Vmean: 0.59 m/s | |PV VTI: 15.15 cm | |TR maxP.29 mmHg | |TR Vmax: 3.17 m/s | |TV A Santino: 0.50 m/s | |TV Dec [place]: 2.37 m/s2 | |TV Dec Time: 229.28 ms | |TV E Santino: 0.54 m/s | |TV E/A Ratio: 1.08 | | | |Software Test Analyst: KVW | |Authenticated by: Johnson Berrios MD | |Report Date/Time: 01-06-2013 23:43:33 | + + XR Pelvis Complete 3 + Vw (01/07/2013 6:11 AM PDT) + + | Specimen | + + | | + + + + + | Narrative | Performed At | + + + | KASSI MAXWELL 1940 XR PELVIS 2 OR MORE VIEWS 01/07/2013 | | | 6:05 AM INDICATION: Trauma COMPARISON: None TECHNIQUE: | | | Pelvis series, two views FINDINGS: There is no fracture of the | | | inferior pubic ramus. There is no widening of the SI joint or | | | symphysis pubis. The leak operator paraffin plant foramen appears intact. There is | | | moderate generalized osteopenia. Severe degenerative disk disease of | | | the lower lumbar spine is present. IMPRESSION: 1. No | | | evidence of acute fracture of the pelvis. | | + + + + + | Procedure Note | + + | Bernard, Rad Conversion - 01/26/2019 3:20 PM PDT [id number] | | OR MORE VIEWS01/07/2013 6:05 AM INDICATION: Trauma COMPARISON: None TECHNIQUE: Pelvis | | series, two views FINDINGS: There is no fracture of the inferior pubic ramus. There is | | no widening of the SI joint or symphysis pubis. The leak operator paraffin plant foramen appears intact. | | There is moderate generalized osteopenia. Severe degenerative disk disease of the lower | | lumbar spine is present. IMPRESSION:1. No evidence of acute fracture of the pelvis. | | | |COMPARISON: None | | | |TECHNIQUE: Pelvis series, two views | | | |FINDINGS: There is no fracture of the inferior pubic ramus. There is no widening of the SI joint or symphysis pubis. The leak operator paraffin plant foramen appears intact. There is moderate generali zed osteopenia. Severe degenerative | |disk disease of the lower lumbar | |spine is present. | | | |IMPRESSION: | |1. No evidence of acute fracture of the pelvis. | | | | | + + ECG 12 lead (01/07/2013 5:46 AM PDT) + + + + + + | Component | Value | Ref Range | Performed | Pathologist | | | | | At | Signature | + + + + + + | DIAGNOSIS: | Normal sinus | | EXTERNAL | | | | rhythmPossible Left | | LAB | | | | atrial enlargementRight | | | | | | bundle branck block, | | | | | | completeT wave | | | | | | abnormality, consider | | | | | | anterior | | | | | | ischemiaAbnormal ECGWhen | | | | | | compared with ECG of | | | | | | 06-JAN-2013 | | | | | | 19:31,Non-specific | | | | | | intra-ventricular | | | | | | conduction block has | | | | | | replaced Right bundle | | | | | | branch blockConfirmed by | | | | | | OMER BERRIOS ([id number]) on | | | | | | 01/07/2013 2:55:03 PM | | | | + + + + + + + + | Specimen | + + | | + + + + + | Narrative | Performed At | + + + | Historically converted procedure from [facility] environment | EXTERNAL LAB | + + + + +---------+ + + | Performing | Address | City/State/Zipcode | Phone Number | | Organization | | | | + +---------+ + + | EXTERNAL LAB | | | | + +---------+ + + XR Chest 1 Vw (01/07/2013 5:00 AM PDT) + + | Specimen | + + | | + + + + + | Narrative | Performed At | + + + | KASSI MAXWELL 1940 72 years XR CHEST 1 VIEW 01/07/2013 | | | 4:55 AM INDICATION: Tube and line placement COMPARISON: | | | 01/06/2013 TECHNIQUE: Chest 1 view, AP view of the chest | | | FINDINGS: The heart is normal in size without mediastinal widening. | | | There is no pneumothorax. A right-sided chest tube is unchanged in | | | position. There is a small right apical pneumothorax. The size of | | | the pneumothorax is not significantly changed from prior study. | | | Patchy bibasilar atelectasis is noted. Atelectasis along the right | | | lower lobe is increased from prior study. The vasculature is normal | | | in caliber. IMPRESSION: 1. Unchanged position of right-sided | | | chest tube. There is no change in a small right apical pneumothorax. | | | 2. Patchy bibasilar atelectasis of the lungs, slightly increased | | | on the right side. | | + + + + + | Procedure Note | + + | Bernard, Rad Conversion - 01/26/2019 3:20 PM PDT KASSI Perez [id number] years[facility] | | CHEST 1 VIEW01/07/2013 4:55 AM INDICATION: Tube and line placement COMPARISON: 01/06/2013 | | TECHNIQUE: Chest 1 view, AP view of the chest FINDINGS: The heart is normal in size | | without mediastinal widening. There is no pneumothorax. A right-sided chest tube is | | unchanged in position. There is a small right apical pneumothorax. The size of the | | pneumothorax is not significantly changed from prior study. Patchy bibasilar | | atelectasis is noted. Atelectasis along the right lower lobe is increased from prior | | study. The vasculature is normal in caliber. IMPRESSION:1. Unchanged position of | | right-sided chest tube. There is no change in a small right apical pneumothorax.2. | | Patchy bibasilar atelectasis of the lungs, slightly increased on the right side. | | | | | |FINDINGS: The heart is normal in size without mediastinal widening. There is no pneumotho rax. A right-sided chest tube is unchanged in position. There is a small right apical pneu mothorax. The size of the pneumothorax is not significantly changed | |from prior study. Patchy bibasilar atelectasis is noted. Atelectasis along the right lowe r lobe is increased from prior study. The vasculature is normal in caliber. | | | |IMPRESSION: | |1. Unchanged position of right-sided chest tube. There is no change in a small right apic al pneumothorax. | |2. Patchy bibasilar atelectasis of the lungs, slightly increased on the right side. | | | | | + + MRSA NAAT (01/06/2013 10:16 PM PDT) + + | Specimen | + + | | + + + + + | Narrative | Performed At | + + + | [facility]) | EXTERNAL LAB | | Testing performed at [facility];[address] [place] [address];[place] [address] MRSA PCR | | | NEGATIVE Testing performed at | | | [address];[place] [address] | | + + + + +---------+ + + | Performing | Address | City/State/Zipcode | Phone Number | | Organization | | | | + +---------+ + + | EXTERNAL LAB | | | | + +---------+ + + XR Chest 1 Vw (01/06/2013 7:38 PM PDT) + + | Specimen | + + | | + + + + + | Narrative | Performed At | + + + | HISTORY: Injury to the chest. COMPARISON: 05/11/11. | | | TECHNIQUE: Portable AP supine film of the chest at 1934 hrs. | | | FINDINGS: Right chest tube in the central right lung castañeda. Right | | | apical pneumothorax measures 10-mm. Atelectasis or contusion right | | | lateral lung base. Poor definition of the anterior ribs due to | | | osteopenia. I suspect right anterolateral mid rib fracture or | | | fractures. Nodular density left lateral lung base measuring 13 mm, | | | probably from nipple shadow. Progress of the aeration is | | | recommended. Heart size is normal. IMPRESSION: 1. Contusion | | | versus atelectasis right lung base with right chest tube in place. 2. | | | 10-mm right apical pneumothorax. 3. Probable anterior mid right | | | rib fractures, poorly defined given the degree of osteopenia. 4. | | | Nodular left lung base probably from nipple shadow. Progress | | | evaluation is recommended. | | + + + + + | Procedure Note | + + | Klaus Wagner - 01/26/2019 3:20 PM PDT HISTORY:Injury to the chest. | | COMPARISON:05/11/11. TECHNIQUE:Portable AP supine film of the chest at 1934 hrs. | | FINDINGS:Right chest tube in the central right lung castañeda. Right apical pneumothorax | | measures 10-mm. Atelectasis or contusion right lateral lung base. Poor definition of | | the anterior ribs due to osteopenia. I suspect right anterolateral mid rib fracture or | | fractures. Nodular density left lateral lung base measuring 13 mm, probably from nipple | | shadow. Progress of the aeration is recommended. Heart size is normal. IMPRESSION:1. | | Contusion versus atelectasis right lung base with right chest tube in place.2. 10-mm | | right apical pneumothorax.3. Probable anterior mid right rib fractures, poorly defined | | given the degree of osteopenia.4. Nodular left lung base probably from nipple shadow. | | Progress evaluation is recommended. Electronically signed by José Miguel Gallagher MD on | | 01/06/2013 8:01 PM | |fractures. Nodular density left lateral lung base measuring 13 mm, probably from nipple sh adow. Progress of the aeration is recommended. Heart size is normal. | | | |IMPRESSION: | |1. Contusion versus atelectasis right lung base with right chest tube in place. | |2. 10-mm right apical pneumothorax. | |3. Probable anterior mid right rib fractures, poorly defined given the degree of osteopeni a. | |4. Nodular left lung base probably from nipple shadow. Progress evaluation is recommended . | | | | | + + ECG 12 lead (01/06/2013 7:31 PM PDT) + + + + + + | Component | Value | Ref Range | Performed | Pathologist | | | | | At | Signature | + + + + + + | DIAGNOSIS: | Normal sinus | | EXTERNAL | | | | rhythmPossible Left | | LAB | | | | atrial enlargementRight | | | | | | bundle branch | | | | | | blockAbnormal ECGWhen | | | | | | compared with ECG of | | | | | | 11-MAY-2011 14:40,Right | | | | | | bundle branch block has | | | | | | replaced Incomplete | | | | | | right bundle branch | | | | | | blockThis ECG contains | | | | | | Unconfirmed | | | | | | Interpretation | | | | | | Statements. See ED | | | | | | Record for Physician | | | | | | Interpretation. | | | | | | Confirmed by MUSE READ | | | | | | ONLY, -COMPUTER ([id number]), | | | | | | scientific editor ADAN EVANS ([id number]) | | | | | | on 01/07/2013 7:49:37 AM | | | | + + + + + + + + | Specimen | + + | | + + + + + | Narrative | Performed At | + + + | Historically converted procedure from [facility] Epic environment | EXTERNAL LAB | + + + + +---------+ + + | Performing | Address | City/State/Zipcode | Phone Number | | Organization | | | | + +---------+ + + | EXTERNAL LAB | | | | + +---------+ + + XR Chest 1 Vw (01/06/2013 6:21 PM PDT) + + | Specimen | + + | | + + + + + | Narrative | Performed At | + + + | This is a non-reportable procedure without a radiologist report and | | | is used for image storage only | | + + + + + | Procedure Note | + + | Klaus Wagner Conversion - 01/26/2019 3:20 PM PDT This is a non-reportable procedure | | without a radiologist report and isused for image storage only | + + CT Chest Abdomen Pelvis w Contrast (01/06/2013 4:48 PM PDT) + + | Specimen | + + | | + + + + + | Narrative | Performed At | + + + | This is a non-reportable procedure without a radiologist report and | | | is used for image storage only | | + + + + + | Procedure Note | + + | Klaus Wagner - 01/26/2019 3:20 PM PDT This is a non-reportable procedure | | without a radiologist report and isused for image storage only | + + CT Cervical Spine wo Contrast (01/06/2013 4:41 PM PDT) + + | Specimen | + + | | + + + + + | Narrative | Performed At | + + + | This is a non-reportable procedure without a radiologist report and | | | is used for image storage only | | + + + + + | Procedure Note | + + | Bernard Rad Conversion - 01/26/2019 3:20 PM PDT This is a non-reportable procedure | | without a radiologist report and isused for image storage only | + + CT Head wo Contrast (01/06/2013 4:39 PM PDT) + + | Specimen | + + | | + + + + + | Narrative | Performed At | + + + | This is a non-reportable procedure without a radiologist report and | | | is used for image storage only | | + + + + + | Procedure Note | + + | Bernard, Klaus Denise - 01/26/2019 3:20 PM PDT This is a non-reportable procedure | | without a radiologist report and isused for image storage only | + + XR Chest 1 Vw (01/06/2013 4:17 PM PDT) + + | Specimen | + + | | + + + + + | Narrative | Performed At | + + + | This is a non-reportable procedure without a radiologist report and | | | is used for image storage only | | + + + + + | Procedure Note | + + | Klaus Wagner Conversion - 01/26/2019 3:20 PM PDT This is a non-reportable procedure | | without a radiologist report and isused for image storage only | + + documented in this encounter Visit Diagnoses + + | Diagnosis | + + | Fracture of rib with flail chest Flail chest | + + | Hemopneumothorax on right Other specified forms of effusion, except tuberculous | + + | Hypotension, unspecified | + + | SIRS (systemic inflammatory response syndrome) (HCC) Systemic inflammatory response | | syndrome, unspecified | + + | Transaminitis Nonspecific elevation of levels of transaminase or lactic acid | | dehydrogenase (LDH) | + + | Diagnosis unknown Other unknown and unspecified cause of morbidity or mortality | + + | Pneumothorax Other pneumothorax | + + | Hemothorax Other specified forms of effusion, except tuberculous | + + | Sacral fracture (HCC) Closed fracture of sacrum and coccyx without mention of spinal | | cord injury | + + | Sternal fracture Closed fracture of sternum | + + | Hypotension Hypotension, unspecified | + + | Acute posthemorrhagic anemia | + + | Blunt chest trauma Other injury of chest wall | + + | Chest pain, unspecified | + + documented in this encounter
--- OUTSIDE RECORDS SUMMARY | ~2020-02-05 | XMS | Encounter Summary ---
Demographics + + + | Address | [address] | | | [place] [address] | + + + | Home Phone | | + + + | Preferred Language | Unknown | + + + | Marital Status | | + + + | Orthodoxy Affiliation | 1028 | + + + | Race | White | + + + | Ethnic Group | Not or | + + + Author + + + | Author | [facility] | | | and [place] | + + + | Organization | [facility] | | [...] [place] | | | | | [address] | | + + + + + Care Team Providers + +------+ + | Care Building Repair Maintenance Supervisor Name | Role | Phone | + +------+ + PCP | Unavailable | + +------+ + Encounter Details +--------+ + + + + | Date | Type | Department | Care Team | Description | +--------+ + + + + | 11/21/ | Hospital | [facility] | | | | 2002 | Encounter | MED CTR XRAY [address] | | | | | [address] | | | | | | [place] [address] | | | | | | [phone] | | | +--------+ + + + [...] | | | | | [place] [address] | | | | | | [phone] | | | | | | | | +--------+---------+ + + + documented as of this encounter Visit Diagnoses Not on filedocumented in this encounter"
--- OUTSIDE RECORDS SUMMARY | ~2020-02-05 | XMS | Encounter Summary ---
Demographics + + + | Address | [address] | | | [place] [address] | + + + | Home Phone | | + + + | Preferred Language | Unknown | + + + | Marital Status | | + + + | Amish Affiliation | 1028 | + + + | Race | White | + + + | Ethnic Group | Not or | + + + Author + + + | Author | [facility] | | | and [place] | + + + | Organization | [facility] | | | [...] [place] | | | | | [address] | | + + + + + Care Team Providers + +------+ + | Care Residential Lawn Specialist Name | Role | Phone | + +------+ + PCP | Unavailable | + +------+ + Encounter Details +--------+ + + + + | Date | Type | Department | Care Team | Description | +--------+ + + + + | 05/11/ | Hospital | [facility] | Conversion | Unspecified | | 2010 | Encounter | MEDICAL CENTER XRAY | Transaction, | essential | | | | [address] | Provider Unknown | hypertension | | | | [place], [place] | | | | | | [address] | (Fax) | | | | | [phone] | | | +--------+ + + + [...] HOSPITAL | | | | | | [place] [address] | | | | | | [phone] | | | | | | | | +--------+---------+ + + + documented as of this encounter Procedures + +--------+ + + + | Procedure Name | Priori | Date/Time | Associated Diagnosis | Comments | | | ty | | | | + +--------+ + + + | XR CHEST 2 VIEWS | Routin | 05/11/2011 | | Results for this | | | e | 2:49 PM | | procedure are in the | | | | PST | | results section. | + +--------+ + + + documented in this encounter Results XR Chest 2 Vws (05/11/2011 2:49 PM PST) + + | Specimen | + + | | + + + + + | Narrative | Performed At | + + + | [facility] XR CHEST 2 VIEW FRONTAL AND LATERAL 05/11/2011 | | | 2:49 PM HISTORY: 71 years. Female. Shortness of breath. | | | Hypertension. TECHNIQUE: PA and lateral view of the chest | | | standard technique COMPARISON: None FINDINGS: Cardiac size | | | is normal. There is a mild pectus excavatum. Lungs are hypo-dense | | | suggesting underlying emphysematous change/COPD but no large | | | although a. No pulmonary nodules or masses. IMPRESSION: 1. No | | | acute infiltrate. 2. Radiographic findings suggesting underlying | | | emphysematous change/COPD correlate clinically. Electronically | | | signed by Dylan Cheatham MD on 05/11/2011 2:55 PM | | + + + + + | Procedure Note | + + | Bernard, Rad Conversion - 01/27/2019 11:27 AM PDT [facility] | | XR CHEST 2 VIEW FRONTAL AND LATERAL | | 05/11/2011 2:49 PM | | | | HISTORY: | | 71 years. Female. Shortness of breath. Hypertension. | | | | TECHNIQUE: | | PA and lateral view of the chest standard technique | | | | COMPARISON: | | None | | | | FINDINGS: | | Cardiac size is normal. There is a mild pectus excavatum. Lungs are | | hypo-dense suggesting underlying emphysematous change/COPD but no large | | although a. No pulmonary nodules or masses. | | | | IMPRESSION: | | 1. No acute infiltrate. | | 2. Radiographic findings suggesting underlying emphysematous | | change/COPD correlate clinically. | | | | | + + documented in this encounter Visit Diagnoses + + | Diagnosis | + + | Unspecified essential hypertension | + + documented in this encounter"
--- OUTSIDE RECORDS SUMMARY | ~2020-02-05 | XMS | Encounter Summary ---
Demographics + + + | Address | [address] | | | [place] [address] | + + + | Home Phone | | + + + | Preferred Language | Unknown | + + + | Marital Status | | + + + | Synagogue Affiliation | 1028 | + + + [...] [place] | | | | | [address] | | + + + + + Care Team Providers + +------+ + | Care Mobile Home Set Up Person Name | Role | Phone | + +------+ + PCP | Unavailable | + +------+ + Encounter Details +--------+ + + + + | Date | Type | Department | Care Team | Description | +--------+ + + + + | 05/10/ | Hospital | [facility] | | | | 2001 | Encounter | MED CTR XRAY [address] | | | | | [address] | | | | | | [place] [address] | | | | | | [phone] | | | +--------+ + + + [...] | | | | | [place] [address] | | | | | | [phone] | | | | | | | | +--------+---------+ + + + documented as of this encounter Visit Diagnoses Not on filedocumented in this encounter"
--- OUTSIDE RECORDS SUMMARY | ~2020-02-05 | XMS | Encounter Summary ---
Demographics + + + | Address | [address] | | | [place] [address] | + + + | Home Phone | | + + + | Preferred Language | Unknown | + + + | Marital Status | | + + + | Jewish Affiliation | 1028 | + + + | Race | White | + + + | Ethnic Group | Not or | + + + Author + + + | Author | [facility] | | | and [place] | + + + | Organization | [facility] | | | [...] [place] | | | | | [address] | | + + + + + Care Team Providers + +------+ + | Care Automobile Body Customizer Name | Role | Phone | + +------+ + PCP | Unavailable | + +------+ + Encounter Details +--------+ + + + + | Date | Type | Department | Care Team | Description | +--------+ + + + + | 04/17/ | Hospital | [facility] | | | | 2002 | Encounter | MED CTR LABORATORY | | | | | | [address] | | | | | | [place] | | | | | | [address] | | | | | | [phone] | | | +--------+ + + + [...] | | | | | [place] [address] | | | | | | [phone] | | | | | | | | +--------+---------+ + + + documented as of this encounter Visit Diagnoses Not on filedocumented in this encounter"
--- OUTSIDE RECORDS SUMMARY | ~2020-02-05 | XMS | Encounter Summary ---
Demographics + + + | Address | [address] | | | [place] [address] | + + + | Home Phone | | + + + | Preferred Language | Unknown | + + + | Marital Status | Unknown | + + + | Jehovah'S Witness Affiliation | Unknown | + + + | Race | Unknown | + + + | Ethnic Group | Unknown | + + + Author + + + | Author | [facility] | + + + | Organization | [facility] | + + + | Address | Unknown | + + + | Phone | Unavailable | + + + Care Team Providers + +------+ + | Care Rock Star Name | Role | Phone | + +------+ + PCP | Unavailable | + +------+ + Reason for Visit + + + | Reason | Comments | + + + | Referral To Surgery | | | - General | | + + + Encounter Details +--------+ + + + + | Date | Type | Department | Care Team | Description | +--------+ + + + + | 09/10/ | Abstract | Dig[facility]ive [facility] | Russell Healy, | Referral To Surgery | | 2015 | | Center at [facility] [address] | [address] [facility] | General | | | | [facility] | [facility] | | | | | [facility] and | [place], [place] | | | | | [facility] [address] | [address] | | | | | [place], [place] | [phone] | | | | | [address] | | | | | | [phone] | | | +--------+ + + + [...] as of this encounter Plan of Treatment Not on filedocumented as of this encounter Visit Diagnoses Not on filedocumented in this encounter"
--- OUTSIDE RECORDS SUMMARY | ~2020-02-05 | XMS | Encounter Summary ---
Demographics + + + | Address | [address] | | | [place] [address] | + + + | Home Phone | | + + + | Preferred Language | Unknown | + + + | Marital Status | | + + + | Sikh Affiliation | 1028 | + + + | Race | White | + + + | Ethnic Group | Not or | + + + Author + + + | Author | [facility] | | | and [place] | + + + | Organization | [facility] | | | and [...] [place] | | | | | [address] | | + + + + + Care Team Providers + +------+ + | Care Imaging Assistant Name | Role | Phone | + +------+ + PCP | Unavailable | + +------+ + Encounter Details +--------+ + + + + | Date | Type | Department | Care Team | Description | +--------+ + + + + | 12/26/ | Hospital | [facility] | | | | 1998 | Encounter | MED CTR XRAY [address] | | | | | | [address] | | | | | | [place] [address] | | | | | | [phone] | | | +--------+ + + + [...] | | | | | [place] [address] | | | | | | [phone] | | | | | | | | +--------+---------+ + + + documented as of this encounter Visit Diagnoses Not on filedocumented in this encounter"
[~2020-02-05 17:02] MED LIST changes: +PRILOSEC OTC20 MG PO; +PROMETHAZINE-C473 ML
[2020-02-05] MEDS ORDERED: NORCO 5-325 TA1 EACH PO (18:42)
== END 2020-02-05 18:58 | disposition home or self-care (01) ==
LOC: ED 17:02
DX: S52.502A Unspecified fracture of the lower end of left radius, initial encounter for closed fracture (principal); S52.602A Unspecified fracture of lower end of left ulna, initial encounter for closed fracture; I10 Essential (primary) hypertension; M06.9 Rheumatoid arthritis, unspecified; Z88.5 Allergy status to narcotic agent; Z88.8 Allergy status to other drugs, medicaments and biological substances; Z79.899 Other long term (current) drug therapy; X58.XXXA Exposure to other specified factors, initial encounter
CPT/HCPCS: 29125; 73090; 73110; 99283-25

== ENCOUNTER 2020-02-08 06:30 | Day surgery (SDC) | payer MEDICARE, OTHER ==
[~2020-02-08] VITALS: Ht 175.3 cm; Wt 52.2 kg
--- NOTE | ~2020-02-08 | OR ---
[facility] [address] [place], [place] [address] Draft DATE OF OPERATION: 02/08/2020 SURGEON: Jae Lee MD PREOPERATIVE DIAGNOSIS: Left distal radius fracture. POSTOPERATIVE DIAGNOSIS: Left distal radius fracture. PROCEDURE PERFORMED: Closed reduction of percutaneous pinning, left distal radius. DRY HOUSE OPERATOR: None. ANESTHESIA: Wrist block. IMPLANTS: Three 1.6 mm K-wires. BRIEF HISTORY: Margareth is a 79-year-old female suffered a ground level fall fracturing her wrist. This was displaced and unstable. Risks and benefits of operative treatment were discussed with her and she elected to proceed. DESCRIPTION OF PROCEDURE: Once consent was obtained, she was taken to the operating room. After adequate anesthesia, she was left on the day surgery cart. The C-arm was brought in. The arm was prepped and draped in standard sterile fashion. Closed reduction was performed utilizing ulnar deviation and flexion of the distal radius fragment. The 1st K-wire was then passed from the tip of the radius on the radial side across the fracture engaging the body of the radius. A 2nd was placed parallel to this and a little bit dorsal. A 3rd pin was placed from the tubercle dorsally passing across the fracture and engaging the volar surface of the radius. All three pins were cut and bent. Radiographs showed an anatomic reduction with pins in good placement and alignment. The pins were then dressed with sterile gauze and a radial gutter splint. She tolerated the procedure well. All sponge, needle, and instrument counts were correct. PATIENT NAME: KASSI MAXWELL OPERATIVE REPORT DATE OF : 40 REPORT #: [id number] PHYSICIAN: JAE LEE MD PCP: JOYCE FRANK MD REPORT IS CONFIDENTIAL AND NOT TO BE RELEASED WITHOUT AUTHORIZATION [address] [place], [place] [address] Draft Jae Lee MD BA/SCAR /[id number] Copies: ~ PATIENT NAME: KASSI MAXWELL OPERATIVE REPORT DATE OF : 40 REPORT #: [id number] PHYSICIAN: JAE LEE MD PCP: JOYCE FRANK MD REPORT IS CONFIDENTIAL AND NOT TO BE RELEASED WITHOUT AUTHORIZATION
[~2020-02-08 06:30] MED LIST changes: +NORCO 5-325 TA1 EACH PO
[2020-02-08] MEDS ORDERED: HYDROCODON-ACE1 EA11 PO (08:28)
--- NOTE | 2020-02-08 08:45 | NUR ---
02/08/20 0845 Briana Coles 0824- PT TO PACU IN SUPINE POSITINO. EYES CLOSED. RESPONDS TO VERBAL STIMULI. BREATHING EASY AND UNLABORED. SPO2 >95% ON 6 L O2 VIA SIMPLE MASK. REPORT RECEIVED FROM CALL CENTER TRAINER AND CREDIT ADMINISTRATION MANAGER. 0831- PT TALKING WITH RN APPROPRIATELY. DENIES PAIN AND NAUSEA. BREATHING EASY AND UNLABORED. O2 TITRATED DOWN TO ROOM AIR. SPO2 >95%. EXTREMITY ELEVATED. ICE APPLIED. 0840- PT CONTINUES TO DENY PAIN AND NAUSEA. ABLE TO MOVE FINGERS BUT REPORTS NUMBNESS SENSATION. BREATHING EASY AND UNLABORED. SPO2 >95% ON ROOM AIR.
--- NOTE | 2020-02-08 10:57 | NUR ---
PT ALERT, ORIENTED AND PLEASANT. ALL QUESTIONS ASKED WERE ANSWERED. PT REQUESTED PRAYER, WILL FOLLOW NEEDED
== END 2020-02-08 09:15 | disposition home or self-care (01) ==
LOC: DS 06:30 → OPS 06:30 → DS 08:00
PROVIDERS: ATTEND Specialist
PROC: 0PSJ34Z Reposition Left Radius with Internal Fixation Device, Percutaneous Approach (ICD-10-PCS; principal; 2020-02-08 08:00)
DX: S52.502A Unspecified fracture of the lower end of left radius, initial encounter for closed fracture (principal); I10 Essential (primary) hypertension; J45.909 Unspecified asthma, uncomplicated; Z79.899 Other long term (current) drug therapy; Z79.82 Long term (current) use of aspirin; Z88.5 Allergy status to narcotic agent; W18.30XA Fall on same level, unspecified, initial encounter
CPT/HCPCS: 64417; 73100; 76942; J0690; J1100; J2001; J2250; J2704; J2795; J7121

== ENCOUNTER 2024-01-18 18:39 | Emergency (ER) | payer MEDICARE, OTHER ==
[~2024-01-18] VITALS: Ht 175.3 cm; Wt 41.4 kg
--- OUTSIDE RECORDS SUMMARY | 2024-01-18 18:40 | XMS ---
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 EFaiza VISIT COUNT (12 MO.) 3 [facility] TOTAL 3 NOTE: Visits indicate total known visits. ED/UCC VISIT TRACKING (12 MO.) 01/18/2024 18:39 [facility] [place] TYPE: Emergency COMPLAINT: - BACK PAIN 01/08/2024 22:51 [facility] [place] TYPE: Emergency COMPLAINT: - STOMACHE PAIN DIAGNOSES: - Adverse effect of other opioids, initial encounter - Allergy status to narcotic agent - Allergy status to other drugs, medicaments and biological substances - Drug induced constipation - Essential (primary) hypertension - Other terminal operator (current) drug therapy - Presence of right artificial knee joint - Unspecified abdominal pain 08/22/2023 18:53 [facility] [place] TYPE: Emergency COMPLAINT: - WEAKNESS DIAGNOSES: - Acute bronchitis due to respiratory syncytial virus - Allergy status to narcotic agent - Allergy status to other antibiotic agents - Cough, unspecified - Essential (primary) hypertension - assisted (current) use of opiate analgesic - Other fpc (current) drug therapy INPATIENT VISIT TRACKING (12 MO.) No inpatient visits to display in this time frame [email or web address]
[2024-01-18] MEDS ORDERED: GABAPENTIN 300 MG CAP PO ONE (21:30)
[2024-01-18] MEDS ORDERED: ONDANSETRON 4 MG HOME.PACK SL ONE (21:30)
[2024-01-18 21:33] VITALS: BP 146/88
== END 2024-01-18 21:37 | disposition home or self-care (01) ==
LOC: ED 18:39
DX: G89.29 Other chronic pain (principal); M54.50 Low back pain, unspecified; I10 Essential (primary) hypertension; Z88.1 Allergy status to other antibiotic agents; Z88.5 Allergy status to narcotic agent; Z79.899 Other long term (current) drug therapy
CPT/HCPCS: 99283; A9270